=== PATIENT | female | born 1950 | race Caucasian/White ===

== ENCOUNTER → 2017-04-16 | Day surgery (SDC) | payer MEDICARE ==
[~2017-04-16] MED LIST: HYDR50TA94 PO; LACTATED RINGER'S 1000 ML INJ 1,000 ML ONE; PROPOFOL 500 MG/50 ML BTL IV ONE; TYLE3 PO; ZOVI800T13 PO
--- NOTE | 2017-04-16 10:43 | GIPROC ---
[facility] [address] [facility], [address] COLONOSCOPY PROCEDURE REPORT EXAM DATE: 04/16/2017 PATIENT NAME: Mary Pollard MR #: [id number] BIRTHDATE: 1950 ENDOSCOPIST: Zack Milian MD ORDER #: [id number] INSURANCE SALES AGENT: Noel Osorio RN STATUS: outpatient INDICATIONS: The patient is a 66 yr old female here for a colonoscopy due to unexplained diarrhea PROCEDURE PERFORMED: Colonoscopy with biopsy MEDICATIONS: None and Per Anesthesia. PREP QUALITY: poor ESTIMATED BLOOD LOSS: None CONSENT: The patient understands the risks and benefits of the procedure and understands that these risks include, but are not limited to: sedation, allergic reaction, infection, perforation and/or bleeding. Alternative means of evaluation and treatment include, among others: physical exam, x-rays, and/or surgical intervention. The patient elects to proceed with this endoscopic procedure. medical equipment was checked for proper function. Hand hygiene and appropriate measures for infection prevention was taken. After the risks, benefits and alternatives of the procedure were thoroughly explained, Informed consent was verified, confirmed and timeout was successfully executed by the treatment team. A digital exam revealed no abnormalities of the rectum The EC-3490Li ([id number]) endoscope was introduced through the anus and advanced to the cecum, which was identified by both the appendix and ileocecal valve. The instrument was then slowly withdrawn as the colon was fully examined. COLON FINDINGS: The colonic mucosa appeared normal. Multiple biopsies were performed. Incomplete colonoscopy poor prep. Retroflexed views revealed no abnormalities The scope was then completely withdrawn from the patient and the procedure terminated. PROCEDURE WITHDRAWAL TIME:5.1minutes ADVERSE EVENTS: There were no complications. IMPRESSIONS: 1. The colonic mucosa appeared normal; multiple biopsies were performed 2. Incomplete colonoscopy poor prep 3. Retroflexed views revealed no abnormalities 4. Revealed no abnormalities of the rectum RECOMMENDATIONS: 1. Await biopsy results. Biopsy results will not be ready for 7-10 days. If you don't hear from us in two weeks, call our office for results. 2. Follow-up: GI Clinic 3 week(s) RECALL: Return 1 year Colonoscopy Zack Milian MD eSigned: Zack Milian MD 04/16/2017 10:42 AM cc: Chicho Vital M.D and [facility] Mary
--- NOTE | 2017-04-16 10:45 | GIPROC ---
[facility] [address] [facility], [address] EGD PROCEDURE REPORT EXAM DATE: 04/16/2017 PATIENT NAME: Mary Pollard MR #: [id number] BIRTHDATE: 1950 ATTENDING: Zack Milian MD ORDER #: [id number] SOAPING MACHINE BACK TENDER: Noel Osorio RN STATUS: outpatient INDICATIONS: The patient is a 66 yr old female here for an EGD due to unexplained diarrhea PROCEDURE PERFORMED: EGD w/ biopsy MEDICATIONS: None, Per Anesthesia, None, and Per Anesthesia. TOPICAL ANESTHETIC: CONSENT: The patient understands the risks and benefits of the procedure and understands that these risks include, but are not limited to: sedation, allergic reaction, infection, perforation and/or bleeding. Alternative means of evaluation and treatment include, among others: physical exam, x-rays, and/or surgical intervention. The patient elects to proceed with this endoscopic procedure. medical equipment was checked for proper function. Hand hygiene and appropriate measures for infection prevention was taken. After the risks, benefits and alternatives of the procedure were thoroughly explained, Informed consent was verified, confirmed and timeout was successfully executed by the treatment team. The patient was anesthetized with topical anesthesia and the EC-3490Li ([id number]) endoscope was introduced through the mouth and advanced to the second portion of the duodenum. Retroflexed views revealed no abnormalities The gastroscope was then slowly withdrawn and removed. ESOPHAGUS: Polypoid lesion distal esophagus, biopsy taken. STOMACH: There was mild gastritis in the gastric antrum. Multiple biopsies were performed. The endoscopy was otherwise normal. DUODENUM: The duodenal mucosa appeared normal. Cold forcep biopsies were taken in the second portion. ADVERSE EVENTS: There were no complications. IMPRESSIONS: 1. Polypoid lesion distal esophagus, biopsy taken 2. There was mild gastritis in the gastric antrum; multiple biopsies were performed 3. Normal endoscopy otherwise 4. Normal duodenal mucosa 5. Retroflexed views revealed no abnormalities RECOMMENDATIONS: 1. Await biopsy results. Biopsy results will not be ready for 7-10 days. If you don't hear from us in two weeks, call our office for biopsy results. 2. Follow-up: GI clinic 3 week(s) PATIENT CONDITION: stable DISPOSITION: Home REPEAT EXAM: Zack Milian MD eSigned: Zack Milian MD 04/16/2017 10:45 AM cc: Javed Rasmussen M.D. PATIENT NAME: Mary Pollard MR#: [id number]
== END | disposition home or self-care (01) ==
LOC: ESDC 09:19
PROVIDERS: ATTEND Internal Medicine Gastroenterology
DX: R19.7 Diarrhea, unspecified (principal); K22.8 Other specified diseases of esophagus; K29.70 Gastritis, unspecified, without bleeding
CPT/HCPCS: 00740; 00810; 43239; 45380; 88305; 88312; J3010; J7120

== ENCOUNTER 2018-01-25 01:41 | Inpatient (IN) ==
--- NOTE | 2018-01-25 04:19 | ED ---
HPI General Chief Complaint: Psychiatric Symptoms Stated Complaint: Psych Eval, OBPD Time Seen by Provider: 01/25/18 02:22 Source: patient Mode of arrival: ambulatory Limitations: no limitations History of Present Illness HPI Narrative: 67-year-old female presents the ED under Cook act for psychiatric evaluation. According to the Cook act the patient is very paranoid and the called EMS. On presentation the patient denies suicidal or homicidal ideation. She states that she is under increased stress due to the recent of her grandson. She denies any somatic complaints. She denies any previous psychiatric history. She denies suicidal or homicidal ideation. She denies any illicit drug use or alcohol use. Related Data Allergies Allergy/AdvReac Type Severity Reaction Status Date / Time No Known Allergies Uncoded 05/01/11 10:50 Review of Systems Except as stated in HPI: all other systems reviewed are negative PMFSH Medical History Medical History Asthma (Acute) Bipolar disorder (Acute) History of frequent urinary tract infections (Acute) Hypertension (Acute) Parkinsons (Acute) TIA (transient ischemic attack) (Acute) Social History Social History Smoking Status: Never smoker How Often Do You Have a Drink Containing Alcohol: 4 or more times a week Recent Travel in [facility] within the Last 8 Weeks: No Recent Out of Country Travel within the Last 8 Weeks: No Exam Narrative Exam Narrative: GENERAL: Well-nourished, well-developed disheveled white female in no acute distress. SKIN: Focused skin assessment warm/dry. HEAD: Atraumatic. Normocephalic. EYES: Pupils equal and round. No scleral icterus. No injection or drainage. ENT: No nasal bleeding or discharge. Mucous membranes pink and moist. NECK: Trachea midline. No JVD. CARDIOVASCULAR: Regular rate and rhythm. No murmur appreciated. RESPIRATORY: No accessory muscle use. Clear to auscultation. Breath sounds equal bilaterally. GASTROINTESTINAL: Abdomen soft, non-tender, nondistended. Hepatic and splenic margins not palpable. MUSCULOSKELETAL: No obvious deformities. No clubbing. No cyanosis. No edema. NEUROLOGICAL: Awake and alert. No obvious cranial nerve deficits. Motor grossly within normal limits. Normal speech. PSYCHIATRIC: Pressured speech. Euphoric mood despite situation. Course Initial Documented Vital Signs Temperature 98.8 F 01/25/18 01:48 Pulse Rate 61 01/25/18 01:48 Respiratory Rate 18 01/25/18 01:48 Blood Pressure 125/61 01/25/18 01:48 Pulse Oximetry 98 01/25/18 01:48 Last Documented Vital Signs Temperature 98.8 F 01/25/18 01:48 Pulse Rate 77 01/25/18 07:30 Respiratory Rate 19 01/25/18 07:30 Blood Pressure 185/74 H 01/25/18 07:30 Pulse Oximetry 96 01/25/18 08:02 Critical Care Time Critical Care Time: Yes Total Critical Care Time: 30 Attestation: Aggregate critical care time was 30 minutes. Time to perform other separately billable procedures was not included in the critical care time. My time did not include minutes spent treating any other patients simultaneously or on activities that did not directly contribute to the patient's treatment. The services I provided to this patient were to treat and/or prevent clinically significant deterioration that could result in: , decompensation I provided critical care services requiring my management, as noted below: Chart data review, documentation time, medication orders and management, vital sign assessments/reviewing monitor data, ordering and reviewing lab tests, ordering and interpreting/reviewing x-rays and diagnostic studies, care of the patient and discussion of the patient with the admitting physicians. Sign Out Sign Out Data: Patient Sign Out occurred on 01/25/18 at 07:22. Patient's care was discussed, and care was transferred from EDGAR Ramos to Teetee Coyne. Sign Out Comment: 67-year-old woman brought to the ED under Cook act and found to be hyponatremic with sodium of 122. Patient's transferred to the medical pods under the care of Dr. Coyne. See her note for disposition. Last updated by Eli Lemos PA at 01/25/18 06:58 Post-Handoff Eval: Patient is a 67-year-old female with history of hypertension, hyperlipidemia, "leaky valves,' parkinson's disease, TIA who presents to the ER under a Cook act by [employer] officer's as she was acting abnormally and was distraught over the recent of her grandson. Reports that her grandson passed of a drug overdose at 22 years old. Patient was found to be acting inappropriately by her , patient's workup shows that she has a sodium of 122. Patient will require admission to the ICU for treatment and workup of hyponatremia. Patient is alert and oriented x 3, denies si/hi. Patient is sad about the passing of her grandson - denies active si/hi. Patient will require treatment for hyponatemia. Patient cannot remember all her medications. case reviewed with cryptanalyst, request admission to medical service case reviewed with FP residents - accepts pt to service under Dr. Govea Medical Decision Making MDM Narrative Medical decision making narrative: 67-year-old female presents the ED under Cook act for evaluation of paranoia. On presentation patient denies SI or HI. She states that she is distraught over the of her grandson recently. She denies any medical complaints. Vitals reviewed. Physical exam is unremarkable. Patient does have a somewhat inappropriate affect, she is vivacious and has somewhat pressured speech. Lab work reveals sodium of 122. IV insertion and bolus ordered. Patient is moved to the medical pods under the care of Dr. Coyne. Differential Diagnosis Differential Diagnosis: Adjustment disorder versus anxiety versus bipolar versus depression versus dementia versus electrolyte disorder versus malingering versus mood disorder versus ODD versus psychosis versus PTSD versus schizophrenia versus schizoaffective disorder versus substance-induced mood disorder versus other Lab Data Result diagrams: 01/25/18 02:22 01/25/18 02:22 Lab Results 01/25/18 01/25/18 01/25/18 Range/Units 02:22 02:22 07:55 WBC 9.9 (4.0-11.0) th/mm3 RBC 4.04 (4.00-5.30) mil/mm3 Hgb 12.0 (11.6-15.3) gm/dL Hct 35.1 (35.0-46.0) % MCV 86.9 (80.0-100.0) fL MCH 29.8 (27.0-34.0) pg MCHC 34.3 (32.0-36.0) % RDW 13.4 (11.6-17.2) % Plt Count 463 H (150-450) th/mm3 MPV 7.9 (7.0-11.0) fL Neut % (Auto) 50.1 (16.0-70.0) % Lymph % (Auto) 36.5 (9.0-44.0) % Lanier % (Auto) 9.3 H (0.0-8.0) % Eos % (Auto) 3.0 (0.0-4.0) % Baso % (Auto) 1.1 (0.0-2.0) % Neut # (Auto) 5.0 (1.8-7.7) th/mm3 Lymph # (Auto) 3.6 (1.0-4.8) th/mm3 Lanier # (Auto) 0.9 (0.0-0.9) th/mm3 Eos # (Auto) 0.3 (0.0-0.4) th/mm3 Baso # (Auto) 0.1 (0.0-0.2) th/mm3 WBC Differential . Differential Comment Auto diff final Sodium 122 L* (136-145) meq/L Potassium 4.4 (3.5-5.1) meq/L Chloride 86 L (98-107) meq/L Carbon Dioxide 26.1 (21.0-32.0) meq/L Anion Gap 10 (5-15) meq/L BUN 5 L (7-18) mg/dL Creatinine 0.66 (0.50-1.00) mg/dL Estimated GFR 89 (>89) mL/min Random Glucose 99 (74-106) mg/dL Calcium 9.3 (8.5-10.1) mg/dL Total Bilirubin 0.3 (0.2-1.0) mg/dL AST 23 (15-37) U/L ALT 27 (10-53) U/L Alkaline Phosphatase 88 (45-117) U/L Total Protein 7.5 (6.4-8.2) g/dL Albumin 4.1 (3.4-5.0) g/dL TSH 3.230 (0.358-3.740) uIU/mL Urine Color (Yellw/Straw) Urine Clarity (Clear) Urine pH (5.0-8.5) Ur Specific Elizabeth (1.002-1.035) Urine Protein (Neg-Trace) mg/dL Urine Glucose (UA) (Negative) mg/dL Urine Ketones (Negative) mg/dL Urine Occult Blood (Negative) Urine Nitrate (Negative) Urine Bilirubin (Negative) Urine Urobilinogen (Less than 2) mg/dL Ur Leukocyte Esterase (Negative) Urine RBC (0-3) /hpf Urine WBC (0-5) /hpf Ur Squamous Epith Cells (0-5) /hpf Micro UA Comment Urine Culture Comments Urine Opiates Screen Neg (Neg) Ur Barbiturates Screen Neg (Neg) Ur Amphetamines Screen Neg (Neg) U Benzodiazepines Scrn Neg (Neg) Urine Cocaine Screen Neg (Neg) U Cannabinoids Screen Neg (Neg) Serum Alcohol Less than 3 (0-5) mg/dL 01/25/18 Range/Units 07:55 WBC (4.0-11.0) th/mm3 RBC (4.00-5.30) mil/mm3 Hgb (11.6-15.3) gm/dL Hct (35.0-46.0) % MCV (80.0-100.0) fL MCH (27.0-34.0) pg MCHC (32.0-36.0) % RDW (11.6-17.2) % Plt Count (150-450) th/mm3 MPV (7.0-11.0) fL Neut % (Auto) (16.0-70.0) % Lymph % (Auto) (9.0-44.0) % Lanier % (Auto) (0.0-8.0) % Eos % (Auto) (0.0-4.0) % Baso % (Auto) (0.0-2.0) % Neut # (Auto) (1.8-7.7) th/mm3 Lymph # (Auto) (1.0-4.8) th/mm3 Lanier # (Auto) (0.0-0.9) th/mm3 Eos # (Auto) (0.0-0.4) th/mm3 Baso # (Auto) (0.0-0.2) th/mm3 WBC Differential Differential Comment Sodium (136-145) meq/L Potassium (3.5-5.1) meq/L Chloride (98-107) meq/L Carbon Dioxide (21.0-32.0) meq/L Anion Gap (5-15) meq/L BUN (7-18) mg/dL Creatinine (0.50-1.00) mg/dL Estimated GFR (>89) mL/min Random Glucose (74-106) mg/dL Calcium (8.5-10.1) mg/dL Total Bilirubin (0.2-1.0) mg/dL AST (15-37) U/L ALT (10-53) U/L Alkaline Phosphatase (45-117) U/L Total Protein (6.4-8.2) g/dL Albumin (3.4-5.0) g/dL TSH (0.358-3.740) uIU/mL Urine Color Straw (Yellw/Straw) Urine Clarity Clear (Clear) Urine pH 7.0 (5.0-8.5) Ur Specific Elizabeth 1.003 (1.002-1.035) Urine Protein Negative (Neg-Trace) mg/dL Urine Glucose (UA) Negative (Negative) mg/dL Urine Ketones Negative (Negative) mg/dL Urine Occult Blood Negative (Negative) Urine Nitrate Negative (Negative) Urine Bilirubin Negative (Negative) Urine Urobilinogen Less than 2 (Less than 2) mg/dL Ur Leukocyte Esterase Negative (Negative) Urine RBC Less than 1 (0-3) /hpf Urine WBC Less than 1 (0-5) /hpf Ur Squamous Epith Cells 1 (0-5) /hpf Micro UA Comment Culture not ind Urine Culture Comments Culture not ind Urine Opiates Screen (Neg) Ur Barbiturates Screen (Neg) Ur Amphetamines Screen (Neg) U Benzodiazepines Scrn (Neg) Urine Cocaine Screen (Neg) U Cannabinoids Screen (Neg) Serum Alcohol (0-5) mg/dL Discharge Plan Discharge Disposition Patient Disposition: 30 Still Patient Discharge Details Diagnosis: Acute hyponatremia Physicians Team ED Provider: Teetee Coyne ED Midlevel Provider: Eli Lemos Primary Care Provider: Chicho Vital Status ED Status: With Doctor
[2018-01-25 06:02] LABS: Baso # (Auto) 0.1 th/mm3 (0.0-0.2); Baso % (Auto) 1.1 % (0.0-2.0); Eos # (Auto) 0.3 th/mm3 (0.0-0.4); Hematocrit 35.1 % (35.0-46.0); Lymph # (Auto) 3.6 th/mm3 (1.0-4.8); Lymph % (Auto) 36.5 % (9.0-44.0); Mean Corpuscular HGB Conc 34.3 % (32.0-36.0); Mean Corpuscular Hemoglobin 29.8 pg (27.0-34.0); Mean Corpuscular Volume 86.9 fL (80.0-100.0); Mean Platelet Volume 7.9 fL (7.0-11.0); Mono # (Auto) 0.9 th/mm3 (0.0-0.9); Mono % (Auto) 9.3 % (0.0-8.0); Neut % (Auto) 50.1 % (16.0-70.0); Platelet Count 463 th/mm3 (150-450); Red Blood Count 4.04 mil/mm3 (4.00-5.30); Red Cell Distribution Width 13.4 % (11.6-17.2); White Blood Count 9.9 th/mm3 (4.0-11.0)
[2018-01-25 06:35] LABS: Alanine Aminotransferase 27 U/L (10-53); Albumin 4.1 g/dL (3.4-5.0); Alkaline Phosphatase 88 U/L (45-117); Anion Gap 10 meq/L (5-15); Aspartate Aminotransferase 23 U/L (15-37); Blood Urea Nitrogen 5 mg/dL (7-18); Calcium 9.3 mg/dL (8.5-10.1); Carbon Dioxide 26.1 meq/L (21.0-32.0); Chloride 86 meq/L (98-107); Glomerular Filtration Rate 89 mL/min (>89); Glucose,Random 99 mg/dL (74-106); Potassium 4.4 meq/L (3.5-5.1); Total Protein 7.5 g/dL (6.4-8.2)
[2018-01-25 06:40] LABS: Sodium 122 meq/L (136-145)
[2018-01-25] MEDS ORDERED: Sod Chloride 0.9% Inj 1,000 ML IV.SIG ONE (06:54)
[2018-01-25 08:32] LABS: Bilirubin,Urine Negative (Negative); Clarity,Urine Clear (Clear); Color,Urine Straw (Yellw/Straw); Glucose,Urine (UA) Negative (Negative); Leukocyte Esterase,Urine Negative (Negative); Nitrite,Urine Negative (Negative); Specific Gravity,Urine 1.003 (1.002-1.035); Squamous Epithelial Cell,Urine 1 /hpf (0-5)
[2018-01-25 08:54] LABS: Amphetamine Screen,Urine Neg (Neg); Barbiturate Screen,Urine Neg (Neg)
[2018-01-25 09:05] LABS: Cannabinoid Screen,Urine Neg (Neg); Cocaine Screen,Urine Neg (Neg)
[2018-01-25 09:07] LABS: Opiate Screen,Urine Neg (Neg)
--- NOTE | 2018-01-25 09:39 | P.HPFP ---
History of Present Illness Primary Care Physician: Chicho Vital MD <Marvin Govea - 01/25/18 14:43> MD Dr. Marlin Cash <Lupe Jacinto Omar - 01/25/18 13:37> History of Present Illness: 67-year-old female presenting to the emergency department under a Cook act due to altered mental status, paranoia, and suicidal ideation as reported by her . Her has been unable to be reached by the medicine team for further information, and patient has a somewhat convoluted story. Per the information from EMS, patient apparently reported suicidal thoughts The patient reports a very tangential story of her recent medical history. She states that she was recently hospitalized in [place] after her grandsons suicide in which she was worked up for possible MS. She then was discharged and return to [place] where she was again hospitalized for collapsing. She states that she was told that she has "leaky valves" and that this should be worked up further. She does not feel that she is confused or altered and in fact states that her is a one that is altered and that he has a history of MS as well. She is unable to provide further details of where she was treated or how, she also is unable to provide her home medications. Attempts have been made to contact but he has been unable to be reached. Upon admission, she was found to be significantly hyponatremic with a serum sodium of 122. Patient is unable to tell us what medications that she is on. She does endorse large amounts of water, stating that she drinks upwards of 20 bottled jasso a day. She does endorse frequent urination with this as well. Since being admitted to the medicine floor, she has been walking the hallways and outside of her room per nursing staff. She also has reportedly called the police from her room phone per nursing. <Marvin Govea - 01/25/18 14:43> Ms. Pollard was admitted under Cook act due to increased paranoia and suicidal ideation reported by (relayed by EMS). Patient was seen by psych in ED who signed her over for medical clearance due to hyponatremia. History difficult to obtain due to patient's AMS. Attempted to contact , but phone number was incorrect. PMH: Bipolar Panic attacks H/o Pancreatitis 3 months ago HTN HLD "Leaky valves" of heart, followed Dr. Hair Sx: Breast lump. Meds: Pt does not know Social: 2-3 glasses of wine,2-3x/wk Denies tobacco or recreational drug use <Lupe Jacinto 01/25/18 13:37> - Diagnosis (1) Hyponatremia (2) Altered mental status (3) Bipolar 1 disorder (4) Hypertension (5) Nutrition, metabolism, and development symptoms <JefersonMarvin mckeon 01/25/18 14:43> (1) Hyponatremia (2) Altered mental status (3) Bipolar 1 disorder (4) Hypertension (5) Nutrition, metabolism, and development symptoms <Lupe Jacinto 01/25/18 13:17> Inpatient Certification: I certify that the inpatient services were ordered in accordance with Medicare regulations governing the order. This includes certification that hospital inpatient services are reasonable and necessary and in the case of services not specified as inpatient-only under 42 CFR 419.22(n), that they are appropriately provided as inpatient services in accordance to with the 2-midnight benchmark under 43 CFR 412.3(e) <Marvin Govea 01/25/18 14:43> I certify that the inpatient services were ordered in accordance with Medicare regulations governing the order. This includes certification that hospital inpatient services are reasonable and necessary and in the case of services not specified as inpatient-only under 42 CFR 419.22(n), that they are appropriately provided as inpatient services in accordance to with the 2-midnight benchmark under 43 CFR 412.3(e) <Lupe Jacinto 01/25/18 09:38> Review of Systems Difficult to obtain due to patient's altered mental state, patient has to be redirected multiple times Constitutional: Denies chills, Denies fever(s), Denies headache(s), reports weakness Eyes: Denies blurry vision, Denies change in vision, Denies double vision Ears, Nose, Mouth, and Throat: Denies ear pain, reports nasal congestion, reports sore throat Cardiovascular: Denies lightheadedness, Denies chest pain, Denies palpitations, Denies fainting. Denies rapid heart rate Respiratory: Denies cough, Denies shortness of breath Gastrointestinal: Reports abdominal pain,[Denies black, tarry stools, Denies bright, red blood in stools, Denies nausea, Denies vomiting, Denies bloating, Denies changes in bowel habits Genitourinary: Denies blood in urine, Denies painful urination, reports urinary urgency, reports urinary frequency, Denies urinary incontinence Psychiatric: Denies hallucinations Denies anxiety, Denies depression Endocrine: Reports increased thirst, reports increased urination <Lupe Jacinto 01/25/18 13:37> PMFSH - History History Provided By: Patient <Lupe Jacinto 01/25/18 09:38> - Medical History Medical History: Medical History (Last Updated 01/25/18 @ 07:23 by Vipul Gonzales, RN) Asthma Bipolar disorder History of frequent urinary tract infections Hypertension Parkinsons TIA (transient ischemic attack) <Marvin Govea 01/25/18 14:43> Medical History (Last Updated 01/25/18 @ 07:23 by Vipul Gonzales RN) Asthma Bipolar disorder History of frequent urinary tract infections Hypertension Parkinsons TIA (transient ischemic attack) <Lupe Jacinto 01/25/18 09:38> - Tobacco History Smoking Status: Never smoker <Lupe Jacinto 01/25/18 09:38> - Alcohol History How Often Do You Have a Drink Containing Alcohol: 4 or more times a week < Lupe Jacinto 01/25/18 09:38> - Travel History Recent Travel in the [facility] Within the Last 8 Weeks: No <Lupe Jacinto 09:38> Recent Travel Out of the Country Within the Last 8 Weeks: No <Lupe Jacinto 01/25/18 09:38> - Immunization History Tetanus Immunization: Unsure <Lupe Jacinto 01/25/18 09:38> Hx Influenza Vaccine This Season: Unable to Assess <Lupe Jacinto 01/25/18 09:38> Medications and Allergies Allergies Allergy/AdvReac Type Severity Reaction Status Date / Time No Known Allergies Uncoded 05/01/11 10:50 <Marvin Govea 01/25/18 14:43> Active Medications: Active Medications Al Hydroxide/Mg Hydroxide (Milk Of Magnesia Liq) 30 ml PO Q12H PRN PRN Reason: Mild Constipation Flumazenil (Romazecon Inj) 0.2 mg IV.PUSH Q1M PRN PRN Reason: OVERSEDATION Haloperidol Lactate (Haldol Inj) 1 mg IV.PUSH Q15M PRN PRN Reason: for severe agitation Heparin Sodium (Porcine) (Heparin Inj) 5,000 units SQ Q12HR ALFREDA Lisinopril (Prinivil) 5 mg PO DAILY ALFREDA Lorazepam (Ativan) 2 mg PO Q2H PRN PRN Reason: for CIWA 11-14 Lorazepam (Ativan Inj) 2 mg IV.PUSH Q2H PRN PRN Reason: for CIWA 11-14 Lorazepam (Ativan Inj) 2 mg IV.PUSH Q1H PRN PRN Reason: for CIWA 15-20 Lorazepam (Ativan Inj) 2 mg IV.PUSH Q15M PRN PRN Reason: for CIWA > 20 Lorazepam (Ativan Inj) 1 mg IV.PUSH Q4H PRN PRN Reason: for CIWA 8-10 Lorazepam (Ativan) 1 mg PO Q4H PRN PRN Reason: for CIWA 8-10 Senna/Docusate Sodium (Cecily-Colace) 1 tab PO BID ALFREDA Sennosides (Senokot) 17.2 mg PO Q12H PRN PRN Reason: Moderate Constipation Temazepam (Restoril) 15 mg PO HS PRN PRN Reason: INSOMNIA <Marvin Govea - 01/25/18 14:43> Exam Vital signs: Vital Signs 01/25/18 01:48 01/25/18 07:30 01/25/18 07:40 Temperature 98.8 F Pulse Rate 61 77 Respiratory Rate 18 19 Blood Pressure 125/61 185/74 H Pulse Oximetry 98 96 01/25/18 08:02 01/25/18 12:00 Temperature 98.1 F Pulse Rate 79 Respiratory Rate 18 Blood Pressure 132/61 Pulse Oximetry 96 99 Intake & Output 01/24/18 01/25/18 01/25/18 18:59 06:59 18:59 Weight 69.853 kg <Marvin Govea 01/25/18 14:43> Vital Signs 01/25/18 01:48 01/25/18 07:30 01/25/18 07:40 Temperature 98.8 F Pulse Rate 61 77 Respiratory Rate 18 19 Blood Pressure 125/61 185/74 H Pulse Oximetry 98 96 01/25/18 08:02 Temperature Pulse Rate Respiratory Rate Blood Pressure Pulse Oximetry 96 Intake & Output 01/24/18 01/25/18 01/25/18 18:59 06:59 18:59 Weight 69.853 kg <Lupe Jacinto - 01/25/18 13:37> Narrative: General: Adult female, lying in bed in no obvious distress CV: Regular rate and rhythm without murmurs Respiratory: Clear to auscultation bilaterally GI: Soft, nondistended, nontender Psych: Somewhat pressured and tangential speech. Denies suicidal/homicidal ideations. Denies hallucinations. She is oriented to person, place, and date <Marvin Govea - 01/25/18 14:43> GENERAL: Adult female in no acute distress, very vocal SKIN: Warm and dry. EYES: No scleral icterus. NECK: Supple, trachea midline. No JVD or lymphadenopathy. CARDIOVASCULAR: Regular rate and rhythm without murmurs, gallops, or rubs. RESPIRATORY: Breath sounds equal bilaterally. No accessory muscle use. GASTROINTESTINAL: Abdomen soft, nondistended. Minimally tender in RLQ. BACK: Nontender without obvious deformity. No CVA tenderness. Psychiatric: Pressured speech, difficult to redirect. Denies a/v hallucinations or s/h ideation <Lupe Jacinto 01/25/18 13:37> Results - Labs Result diagrams: 01/25/18 02:22 01/25/18 02:22 <Marvin Govea 01/25/18 14:43> Abnormal lab results 01/25/18 01/25/18 01/25/18 Range/Units 02:22 02:22 07:55 Plt Count 463 H (150-450) th/mm3 [place] % (Auto) 9.3 H (0.0-8.0) % Sodium 122 L* (136-145) meq/L Chloride 86 L (98-107) meq/L BUN 5 L (7-18) mg/dL Urine Osmolality 122 L (300-1300) mosm/kg Short CBC 01/25/18 Range/Units 02:22 WBC 9.9 (4.0-11.0) th/mm3 Hgb 12.0 (11.6-15.3) gm/dL Hct 35.1 (35.0-46.0) % Plt Count 463 H (150-450) th/mm3 [facility] 01/25/18 02:22 Sodium 122 L* Potassium 4.4 Chloride 86 L Carbon Dioxide 26.1 BUN 5 L Creatinine 0.66 Calcium 9.3 Liver Function 01/25/18 Range/Units 02:22 Total Bilirubin 0.3 (0.2-1.0) mg/dL AST 23 (15-37) U/L ALT 27 (10-53) U/L Alkaline Phosphatase 88 (45-117) U/L Albumin 4.1 (3.4-5.0) g/dL Urine 01/25/18 Range/Units 07:55 Urine Color Straw (Yellw/Straw) Urine Clarity Clear (Clear) Urine pH 7.0 (5.0-8.5) Ur Specific [place] 1.003 (1.002-1.035) Urine Protein Negative (Neg-Trace) mg/dL Urine Glucose (UA) Negative (Negative) mg/dL <Marvin Govea - 01/25/18 14:43> Abnormal lab results 01/25/18 01/25/18 Range/Units 02:22 02:22 Plt Count 463 H (150-450) th/mm3 [place] % (Auto) 9.3 H (0.0-8.0) % Sodium 122 L* (136-145) meq/L Chloride 86 L (98-107) meq/L BUN 5 L (7-18) mg/dL Short CBC 01/25/18 Range/Units 02:22 WBC 9.9 (4.0-11.0) th/mm3 Hgb 12.0 (11.6-15.3) gm/dL Hct 35.1 (35.0-46.0) % Plt Count 463 H (150-450) th/mm3 BMP 01/25/18 02:22 Sodium 122 L* Potassium 4.4 Chloride 86 L Carbon Dioxide 26.1 BUN 5 L Creatinine 0.66 Calcium 9.3 Liver Function 01/25/18 Range/Units 02:22 Total Bilirubin 0.3 (0.2-1.0) mg/dL AST 23 (15-37) U/L ALT 27 (10-53) U/L Alkaline Phosphatase 88 (45-117) U/L Albumin 4.1 (3.4-5.0) g/dL Urine 01/25/18 Range/Units 07:55 Urine Color Straw (Yellw/Straw) Urine Clarity Clear (Clear) Urine pH 7.0 (5.0-8.5) Ur Specific [place] 1.003 (1.002-1.035) Urine Protein Negative (Neg-Trace) mg/dL Urine Glucose (UA) Negative (Negative) mg/dL <Lupe Jacinto 01/25/18 09:38> - Imaging Impressions Head CT 01/25/18 10:19 CONCLUSION: 1. Negative CT Head non contrast. <Marvin Govea 01/25/18 14:43> Caprini VTE Risk Assessment Caprini VTE Risk Assessment: No/Low Risk (score <= 1) <Lupe Jacinto 13:37> Caprini Risk Assessment Model: Point Value = 1 Point Value = 2 Point Value = 3 Point Value = 5 Age 41-60 Minor surgery BMI > 25 kg/m2 Swollen legs Varicose veins or History of unexplained or recurrent spontaneous Oral contraceptives or hormone replacement Sepsis (< 1 month) Serious lung disease, including pneumonia (< 1 month) Abnormal pulmonary function Acute myocardial infarction Congestive heart failure (< 1 month) History of inflammatory bowel disease Medical patient at bed rest Age 61-74 Arthroscopic surgery Major open surgery (> 45 min) Laparoscopic surgery (> 45 min) Malignancy Confined to bed (> 72 hours) Immobilizing plaster cast Central venous access Age >= 75 History of VTE Family history of VTE Factor V Leiden Prothrombin [id number] Lupus anticoagulant Anticardiolipin antibodies Elevated serum homocysteine Heparin-induced thrombocytopenia Other congenital or acquired thrombophilia Stroke (< 1 month) Elective arthroplasty Hip, pelvis, or leg fracture Acute spinal cord injury (< 1 month) <Marvin Govea 01/25/18 14:43> Point Value = 1 Point Value = 2 Point Value = 3 Point Value = 5 Age 41-60 Minor surgery BMI > 25 kg/m2 Swollen legs Varicose veins or History of unexplained or recurrent spontaneous Oral contraceptives or hormone replacement Sepsis (< 1 month) Serious lung disease, including pneumonia (< 1 month) Abnormal pulmonary function Acute myocardial infarction Congestive heart failure (< 1 month) History of inflammatory bowel disease Medical patient at bed rest Age 61-74 Arthroscopic surgery Major open surgery (> 45 min) Laparoscopic surgery (> 45 min) Malignancy Confined to bed (> 72 hours) Immobilizing plaster cast Central venous access Age >= 75 History of VTE Family history of VTE Factor V Leiden Prothrombin [id number] Lupus anticoagulant Anticardiolipin antibodies Elevated serum homocysteine Heparin-induced thrombocytopenia Other congenital or acquired thrombophilia Stroke (< 1 month) Elective arthroplasty Hip, pelvis, or leg fracture Acute spinal cord injury (< 1 month) <Lupe Jacinto - 01/25/18 09:38> Prophylaxis Regimen: Total Risk Factor Score Risk Level Prophylaxis Regimen 0-1 Low Early ambulation 2 Moderate Order ONE of the following: *Sequential Compression Device (SCD) *Heparin 5000 units SQ BID 3-4 Higher Order ONE of the following medications: *Heparin 5000 units SQ TID *Enoxaparin/Lovenox 40 mg SQ daily (WT < 150 kg, CrCl > 30 mL/min) *Enoxaparin/Lovenox 30 mg SQ daily (WT < 150 kg, CrCl > 10-29 mL/min) *Enoxaparin/Lovenox 30 mg SQ BID (WT < 150 kg, CrCl > 30 mL/min) AND/OR *Sequential Compression Device (SCD) 5 or more Highest Order ONE of the following medications: *Heparin 5000 units SQ TID (Preferred with Epidurals) *Enoxaparin/Lovenox 40 mg SQ daily (WT < 150 kg, CrCl > 30 mL/min) *Enoxaparin/Lovenox 30 mg SQ daily (WT < 150 kg, CrCl > 10-29 mL/min) *Enoxaparin/Lovenox 30 mg SQ BID (WT < 150 kg, CrCl > 30 mL/min) AND *Sequential Compression Device (SCD) <Marvin Govea - 01/25/18 14:43> Total Risk Factor Score Risk Level Prophylaxis Regimen 0-1 Low Early ambulation 2 Moderate Order ONE of the following: *Sequential Compression Device (SCD) *Heparin 5000 units SQ BID 3-4 Higher Order ONE of the following medications: *Heparin 5000 units SQ TID *Enoxaparin/Lovenox 40 mg SQ daily (WT < 150 kg, CrCl > 30 mL/min) *Enoxaparin/Lovenox 30 mg SQ daily (WT < 150 kg, CrCl > 10-29 mL/min) *Enoxaparin/Lovenox 30 mg SQ BID (WT < 150 kg, CrCl > 30 mL/min) AND/OR *Sequential Compression Device (SCD) 5 or more Highest Order ONE of the following medications: *Heparin 5000 units SQ TID (Preferred with Epidurals) *Enoxaparin/Lovenox 40 mg SQ daily (WT < 150 kg, CrCl > 30 mL/min) *Enoxaparin/Lovenox 30 mg SQ daily (WT < 150 kg, CrCl > 10-29 mL/min) *Enoxaparin/Lovenox 30 mg SQ BID (WT < 150 kg, CrCl > 30 mL/min) AND *Sequential Compression Device (SCD) <Lupe Jacinto - 01/25/18 09:38> Assessment and Plan - Assessment (1) Hyponatremia Code(s): E87.1 - Hypo-osmolality and hyponatremia Status: Acute Plan: Patient states that she has been drinking upwards of 20 bottles of water daily Admission sodium of 122 Continue normal saline at 100 mL/hour -Status post 1 L bolus of normal saline in the emergency department Urine osmole and urine sodium pending Fluid restriction to 800 mL p.o. daily Unknown medication history, lithium is a concern so we will obtain lithium level (2) Altered mental status Code(s): R41.82 - Altered mental status, unspecified Status: Acute Plan: Patient has a questionable history of bipolar disorder and unknown psychiatric baseline Differential includes acute on chronic hyponatremia versus psychiatric disorder Head CT performed showing no abnormalities Urine tox screen negative UA negative for infection Psychiatry consulted and appreciate recommendations (3) Bipolar 1 disorder Code(s): F31.9 - Bipolar disorder, unspecified Status: Acute Plan: Patient does have a history of bipolar disorder, unknown medications or treatment previously -We will continue to attempt to contact to further differentiate her treatment (4) Hypertension Code(s): I10 - Essential (primary) hypertension Status: Acute Plan: Given 0.1 mg of clonidine in the emergency department Start lisinopril 5 mg daily (5) Nutrition, metabolism, and development symptoms Code(s): R63.8 - Other symptoms and signs concerning food and fluid intake Status: Acute <Marvin Govea - 01/25/18 14:43> (1) Hyponatremia Code(s): E87.1 - Hypo-osmolality and hyponatremia Status: Acute Plan: -Normal saline at 100 mL's per hour -Urine osmole and urine sodium ordered to add to urine and lab -Follow sodium closely every 4 hours after initiation of fluids -Fluid restriction 800 mL's p.o. daily -[place] level ordered -Monitor for signs of worsening mental status (2) Altered mental status Code(s): R41.82 - Altered mental status, unspecified Status: Acute Plan: -She has poor historian, unable to reach for further information -Electrolyte abnormality vs psychiatric -Stat CT head without contrast no acute disease -UA negative, UDS negative -Psychiatry consulted, recommendations appreciated. (3) Bipolar 1 disorder Code(s): F31.9 - Bipolar disorder, unspecified Status: Acute Plan: -Unable to obtain history from patient -We will attempt to find out home medication. (4) Hypertension Code(s): I10 - Essential (primary) hypertension Status: Acute Plan: -Patient given 0.1 mg clonidine for BP 185/74 -Lisinopril 5 mg daily -Attempt to find out home medication (5) Nutrition, metabolism, and development symptoms Code(s): R63.8 - Other symptoms and signs concerning food and fluid intake Status: Acute Plan: Fluids: NS 100mL/hr, limit PO intake 800mL/day Electrolytes: NS 100mL/hr for hyponatremia DVT Prophylaxis: Heparin 5000U SQ q12hr <Lupe Jacinto - 01/25/18 13:17> - Assessment and Plan Discussed Condition With: Dr Braun <Lupe Jacinto - 01/25/18 12:30>
[2018-01-25] MEDS ORDERED: Temazepam 15 MG Capsule PO PRN (09:55)
[2018-01-25] MEDS ORDERED: Haloperidol Inj 5 MG/ML Ampul IV.PUSH PRN (10:55)
[2018-01-25] MEDS ORDERED: LORazepam 1 MG Tablet PO PRN (10:55)
--- NOTE | 2018-01-25 11:56 | CT ---
EXAM DATE: 01/25/2018 11:53 AM EDT AGE/SEX: 67 years / Female INDICATIONS: Altered Mental Status CLINICAL DATA: This is the patient's initial encounter. Patient reports that signs and symptoms have been present for 1 day and indicates a pain score of 0/10. MEDICAL/SURGICAL HISTORY: Asthma. Hypertension. Parkinson's disease. Stroke None. RADIATION DOSE: 37.06 CTDI (mGy) COMPARISON: [facility] [place], CT BRAIN W/O CONTRAST, 08/07/2010. . TECHNIQUE: CT of the head without contrast. Using automated exposure control and adjustment of the mA and/or kV according to patient size, radiation dose was kept as low as reasonably achievable to ob tain optimal diagnostic quality images. DICOM format image data is available electronically for revi ew and comparison. FINDINGS: Cerebrum: The ventricles are normal for age. No evidence of midline shift, mass lesion, hemorrhage or acute infarction. No extraaxial fluid collections are seen. Posterior Fossa: The cerebellum and brainstem are intact. The 4th ventricle is midline. The cerebe llopontine angle is unremarkable. Extracranial: The visualized portion of the orbits is intact. Skull: The calvaria is intact. No evidence of skull fracture. Mucous retention cysts identified wit hin the left maxillary sinus. CONCLUSION: 1. Negative CT Head non contrast. . Electronically signed by: Radha Ferguson MD 01/25/2018 11:55 AM EDT
[2018-01-25 14:53] LABS: Anion Gap 7 meq/L (5-15); Blood Urea Nitrogen 5 mg/dL (7-18); Calcium 9.1 mg/dL (8.5-10.1); Carbon Dioxide 29.2 meq/L (21.0-32.0); Chloride 92 meq/L (98-107); Glomerular Filtration Rate Greater Than 89 mL/min (>89); Glucose,Random 108 mg/dL (74-106); Potassium 3.9 meq/L (3.5-5.1); Sodium 128 meq/L (136-145)
[2018-01-25] MEDS: Senna/Docusate Sodium 8.6/50 MG Tablet PO SCH (21:29)
[2018-01-25] MEDS: Heparin - SQ 10,000 UNITS/ML Vial SQ SCH (21:29)
[2018-01-25 22:50] LABS: Calcium 8.5 mg/dL (8.5-10.1); Potassium 4.2 meq/L (3.5-5.1)
[2018-01-26 05:26] LABS: Baso % (Auto) 0.7 % (0.0-2.0); Eos # (Auto) 0.1 th/mm3 (0.0-0.4); Eos % (Auto) 2.8 % (0.0-4.0); Hematocrit 29.5 % (35.0-46.0); Hemoglobin 10.4 gm/dL (11.6-15.3); Lymph # (Auto) 2.1 th/mm3 (1.0-4.8); Lymph % (Auto) 44.4 % (9.0-44.0); Mean Corpuscular HGB Conc 35.3 % (32.0-36.0); Mean Corpuscular Hemoglobin 30.9 pg (27.0-34.0); Mean Corpuscular Volume 87.6 fL (80.0-100.0); Mean Platelet Volume 7.3 fL (7.0-11.0); Mono # (Auto) 0.5 th/mm3 (0.0-0.9); Mono % (Auto) 11.1 % (0.0-8.0); Platelet Count 310 th/mm3 (150-450); Red Blood Count 3.37 mil/mm3 (4.00-5.30); White Blood Count 4.8 th/mm3 (4.0-11.0)
[2018-01-26 05:41] LABS: Calcium 8.6 mg/dL (8.5-10.1); Carbon Dioxide 25.9 meq/L (21.0-32.0); Potassium 3.9 meq/L (3.5-5.1)
[2018-01-26] MEDS ORDERED: Lisinopril 5 MG Tablet PO SCH (09:00)
[2018-01-26] MEDS: Senna/Docusate Sodium 8.6/50 MG Tablet PO SCH (09:43)
[2018-01-26] MEDS: Heparin - SQ 10,000 UNITS/ML Vial SQ SCH (09:43)
--- NOTE | 2018-01-26 10:59 | P.PNFP ---
Subjective Interval history: Patient seen and examined this morning. Sodium improved overnight. Pt denies any complaints this morning. She is wondering when she can go home. <OwenBenjamin Myles - 01/26/18 10:58> Results - Labs Result diagrams: 01/26/18 04:39 01/26/18 04:39 <JefersonMarvin - 01/26/18 12:16> Abnormal lab results 01/25/18 01/25/18 01/25/18 Range/Units 07:55 13:49 13:49 RBC (4.00-5.30) mil/mm3 Hgb (11.6-15.3) gm/dL Hct (35.0-46.0) % Lymph % (Auto) (9.0-44.0) % [place] % (Auto) (0.0-8.0) % Sodium 128 L (136-145) meq/L Chloride 92 L (98-107) meq/L BUN 5 L (7-18) mg/dL Estimated GFR (>89) mL/min Random Glucose 108 H (74-106) mg/dL Urine Osmolality 122 L (300-1300) mosm/kg Strang Less than 0.1 L (0.5-1.5) meq/L 01/25/18 01/26/18 01/26/18 Range/Units 22:20 04:39 04:39 RBC 3.37 L (4.00-5.30) mil/mm3 Hgb 10.4 L (11.6-15.3) gm/dL Hct 29.5 L (35.0-46.0) % Lymph % (Auto) 44.4 H (9.0-44.0) % [place] % (Auto) 11.1 H (0.0-8.0) % Sodium 126 L 126 L (136-145) meq/L Chloride 91 L 91 L (98-107) meq/L BUN (7-18) mg/dL Estimated GFR 88 L 78 L (>89) mL/min Random Glucose 147 H (74-106) mg/dL Urine Osmolality (300-1300) mosm/kg Strang (0.5-1.5) meq/L Short CBC 01/26/18 Range/Units 04:39 WBC 4.8 (4.0-11.0) th/mm3 Hgb 10.4 L (11.6-15.3) gm/dL Hct 29.5 L (35.0-46.0) % Plt Count 310 D (150-450) th/mm3 BMP 01/25/18 01/25/18 01/26/18 13:49 22:20 04:39 Sodium 128 L 126 L 126 L Potassium 3.9 4.2 3.9 Chloride 92 L 91 L 91 L Carbon Dioxide 29.2 26.0 25.9 BUN 5 L 9 9 Creatinine 0.58 0.67 0.74 Calcium 9.1 8.5 8.6 <Lillian Goveay - 01/26/18 12:16> Abnormal lab results 01/25/18 01/25/18 01/25/18 Range/Units 07:55 13:49 13:49 RBC (4.00-5.30) mil/mm3 Hgb (11.6-15.3) gm/dL Hct (35.0-46.0) % Lymph % (Auto) (9.0-44.0) % [place] % (Auto) (0.0-8.0) % Sodium 128 L (136-145) meq/L Chloride 92 L (98-107) meq/L BUN 5 L (7-18) mg/dL Estimated GFR (>89) mL/min Random Glucose 108 H (74-106) mg/dL Urine Osmolality 122 L (300-1300) mosm/kg Strang Less than 0.1 L (0.5-1.5) meq/L 01/25/18 01/26/18 01/26/18 Range/Units 22:20 04:39 04:39 RBC 3.37 L (4.00-5.30) mil/mm3 Hgb 10.4 L (11.6-15.3) gm/dL Hct 29.5 L (35.0-46.0) % Lymph % (Auto) 44.4 H (9.0-44.0) % [place] % (Auto) 11.1 H (0.0-8.0) % Sodium 126 L 126 L (136-145) meq/L Chloride 91 L 91 L (98-107) meq/L BUN (7-18) mg/dL Estimated GFR 88 L 78 L (>89) mL/min Random Glucose 147 H (74-106) mg/dL Urine Osmolality (300-1300) mosm/kg Strang (0.5-1.5) meq/L Short CBC 01/26/18 Range/Units 04:39 WBC 4.8 (4.0-11.0) th/mm3 Hgb 10.4 L (11.6-15.3) gm/dL Hct 29.5 L (35.0-46.0) % Plt Count 310 D (150-450) th/mm3 BMP 01/25/18 01/25/18 01/26/18 13:49 22:20 04:39 Sodium 128 L 126 L 126 L Potassium 3.9 4.2 3.9 Chloride 92 L 91 L 91 L Carbon Dioxide 29.2 26.0 25.9 BUN 5 L 9 9 Creatinine 0.58 0.67 0.74 Calcium 9.1 8.5 8.6 <Benjamin Weaver - 01/26/18 10:58> - Imaging Impressions Head CT 01/25/18 10:19 CONCLUSION: 1. Negative CT Head non contrast. . <Benjamin Weaver 01/26/18 10:58> Physical Exam Vital signs: Vital Signs 01/25/18 16:00 01/25/18 20:00 01/26/18 00:00 Temperature 97.3 F L 97.4 F L 98.1 F Pulse Rate 75 86 72 Respiratory Rate 16 15 16 Blood Pressure 142/63 H 121/58 L 135/61 Pulse Oximetry 98 96 96 01/26/18 04:00 01/26/18 08:00 01/26/18 12:00 Temperature 98.2 F 98.2 F 98.7 F Pulse Rate 89 81 85 Respiratory Rate 16 18 18 Blood Pressure 122/58 L 154/75 H 162/67 H Pulse Oximetry 94 L 99 95 Intake & Output 01/25/18 01/26/18 01/26/18 18:59 06:59 18:59 Weight 69.8 kg Other: # Voids 1 6 Date of Last Bowel Movement 01/26/18 <Marvin Govea - 01/26/18 12:16> Vital Signs 01/25/18 12:00 01/25/18 16:00 01/25/18 20:00 Temperature 98.1 F 97.3 F L 97.4 F L Pulse Rate 79 75 86 Respiratory Rate 18 16 15 Blood Pressure 132/61 142/63 H 121/58 L Pulse Oximetry 99 98 96 01/26/18 00:00 01/26/18 04:00 01/26/18 08:00 Temperature 98.1 F 98.2 F 98.2 F Pulse Rate 72 89 81 Respiratory Rate 16 16 18 Blood Pressure 135/61 122/58 L 154/75 H Pulse Oximetry 96 94 L 99 Intake & Output 01/25/18 01/26/18 01/26/18 18:59 06:59 18:59 Weight 69.8 kg Other: # Voids 1 6 <Benjamin Weaver - 01/26/18 10:58> Narrative: GENERAL: sitting up in bed, NAD SKIN: Warm and dry. CARDIOVASCULAR: Regular rate and rhythm. RESPIRATORY: No accessory muscle use. Clear to auscultation. Breath sounds equal bilaterally. GASTROINTESTINAL: Abdomen soft, non-tender, nondistended. Hepatic and splenic margins not palpable. MUSCULOSKELETAL: Extremities without clubbing, cyanosis, or edema. No obvious deformities. NEUROLOGICAL: Awake and alert. No obvious cranial nerve deficits. Motor grossly within normal limits. Normal speech. PSYCHIATRIC: Tangential speech. normal mood. no SI/HI. Alert and oriented x3 <Benjamin Weaver - 01/26/18 10:58> Assessment and Plan - Assessment (1) Hyponatremia Code(s): E87.1 - Hypo-osmolality and hyponatremia Status: Acute (2) Altered mental status Code(s): R41.82 - Altered mental status, unspecified Status: Acute (3) Bipolar 1 disorder Code(s): F31.9 - Bipolar disorder, unspecified Status: Acute (4) Hypertension Code(s): I10 - Essential (primary) hypertension Status: Acute (5) Nutrition, metabolism, and development symptoms Code(s): R63.8 - Other symptoms and signs concerning food and fluid intake Status: Acute <Marvin Govea - 01/26/18 12:16> (1) Hyponatremia Code(s): E87.1 - Hypo-osmolality and hyponatremia Status: Acute Plan: Patient states that she has been drinking upwards of 20 bottles of water daily Admission sodium of 122 Urine osm 122 urine Na 28 Strang level low Improving Na up to 126 Fluid restriction to 800 mL p.o. daily Unknown medication history, lithium is a concern so we will obtain lithium level (2) Altered mental status Code(s): R41.82 - Altered mental status, unspecified Status: Acute Plan: Patient has a questionable history of bipolar disorder and unknown psychiatric baseline Differential includes acute on chronic hyponatremia versus psychiatric disorder Head CT performed showing no abnormalities Urine tox screen negative UA negative for infection Psychiatry consulted and appreciate recommendations (3) Bipolar 1 disorder Code(s): F31.9 - Bipolar disorder, unspecified Status: Acute Plan: Patient does have a history of bipolar disorder, unknown medications or treatment previously -We will continue to attempt to contact to further differentiate her treatment (4) Hypertension Code(s): I10 - Essential (primary) hypertension Status: Acute Plan: Given 0.1 mg of clonidine in the emergency department Start lisinopril 5 mg daily (5) Nutrition, metabolism, and development symptoms Code(s): R63.8 - Other symptoms and signs concerning food and fluid intake Status: Acute Plan: Fluids: limit PO intake 800mL/day Electrolytes: Hyponatremia as above DVT Prophylaxis: Heparin 5000U SQ q12hr <Benjamin Weaver - 01/26/18 10:49> - Attending Attestation Patient examined independently and case discussed with resident physicians I have read the above note and agree with the assessment/plan as discussed with me I was involved in all medical decision making for this patient Marvin Govea MD <Marvin Govea - 01/26/18 12:16>
--- NOTE | 2018-01-26 12:18 | P.CONPSY ---
Provisional Diagnosis Admission Date: January 25, 2018 09:30 [place] I.: 1. Bipolar disorder, presently manic, severe with psychotic features [place] II.: Deferred History of Present Illness Service: Psychiatry Consult date: 01/26/18 Requesting Physician: Lupe Jacinto Reason for Consult: Cook Act. Possible history of BPAD. Primary Care Provider: Chicho Vital MD History of Present Illness: Ms. Pollard is a 67-year-old female with a history of bipolar disorder who presents under a Cook act by [facility] alleging that the patient is paranoid and unable to care for herself. The patient has been admitted to the medical floor for management of hyponatremia. Reviewing the electronic medical record, I see no previous psychiatric contact within our system. Patient seen and examined. Chart reviewed. Case discussed with nursing staff who reports that the patient has been quite grandiose, offering to buy items for the staff including vehicles. A sitter is at the bedside. On my examination today, the patient presents with elevated mood and expansive affect. She remains upbeat even when discussing grave matters such as her grandson's recent suicide. Speech is rapid and rambling. Mood is described as "100%!" She reports that she is sleeping well. She is somewhat distractible with some loosening of associations. She denies audiovisual hallucinations. Grandiose delusions are noted. She tells me that her is a candidate for president of [employer]. She offers me a job in the [employer] once he gets elected. She denies any suicidal or homicidal ideation but seems unreliable to contract for safety. Remainder of the psychiatric ROS is negative. No acute physical complaints. Mental status testing: Registration is 3 out of 3 and recall is 2 out of 3 at 5 minutes. She is oriented to person, place and date. She gives WORLD backwards as DLORW. She is able to name 2 items and repeat a phrase. Past psychiatric history: The patient reports a history of "a little bipolar." She reports that she saw her female psychiatrist last week although she cannot recall the name. [Collateral from indicates that the patient has in fact been seeing a male psychiatrist, Dr. Bey.] Patient reports that she was Cook acted 15 years ago but otherwise denies any history of inpatient psychiatric treatment. She denies a history of suicide attempts. Family history: The patient denies any family history of mental illness or suicide. Chemical dependency history: The patient reports that she is a social drinker. She says that she has reduced even this level of alcohol consumption after a bout of pancreatitis a few months ago. Social history: The patient is originally from [place] by way of [place]. Her father and grandfather were reportedly surgeons. She lives with her Tres who suffers from MS and Parkinson's. She has 4 children. She has a college degree in geology. 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 Denies any legal history. Denies any access to guns or firearms. She is a Confucianism. With patient's permission, spoke with her Tres Burch at [phone]. Mr. Burch notes that 3 weeks ago, patient left for a doctor's appointment and ended up driving all the way to [place] where she ran out of gas. She was reportedly psychiatrically hospitalized in [place] [facility] and reportedly disclosed some suicidal ideation while treated there. suspects that precipitant for this manic episode was grandson's suicide about 3 weeks ago. He notes that the patient has a history of bipolar disorder and recently started seeing Dr. Bey. Before that had been seeing Olvin Mcgarry at [facility]. notes Dr. Bey started patient on Vraylar. She took 3 doses, perhaps some benefit but not long-lasting. He notes that she had been doing well with whatever medication Olvin was prescribing for her. is supportive of psychiatric hospitalization at this time. I called over to [facility] to get med list. Patient was most recently prescribed Seroquel 300 mg at bedtime. She has also been on Risperdal in the past. Review of Systems All other systems reviewed negative except as stated in HPI (Limitation: Alison) [facility] - History History Provided By: Patient - Medical History Medical History: Medical History (Last Updated 01/25/18 @ 07:23 by Vipul Gonzales RN) Asthma Bipolar disorder History of frequent urinary tract infections Hypertension Parkinsons TIA (transient ischemic attack) - Tobacco History Second Hand Smoke Exposure: No Tobacco Use In Past 30 Days: No Smoking Status: Never smoker Tobacco Type: Cigarettes - Alcohol History How Often Do You Have a Drink Containing Alcohol: 4 or more times a week - Substance Use History Substance History: No History of Abuse - Travel History Recent Travel in the [facility] Within the Last 8 Weeks: No Recent Travel Out of the Country Within the Last 8 Weeks: No - Immunization History Tetanus Immunization: Unsure Hx Influenza Vaccine This Season: Unable to Assess Medications and Allergies Active Medications: Active Medications Al Hydroxide/Mg Hydroxide (Milk Of Rosana Gloria) 30 ml PO Q12H PRN PRN Reason: Mild Constipation Flumazenil (Romazecon Inj) 0.2 mg IV.PUSH Q1M PRN PRN Reason: OVERSEDATION Haloperidol Lactate (Haldol Inj) 1 mg IV.PUSH Q15M PRN PRN Reason: for severe agitation Heparin Sodium (Porcine) (Heparin Inj) 5,000 units SQ Q12HR [facility] Last Admin: 01/26/18 09:43 Dose: 5,000 units Lisinopril (Prinivil) 5 mg PO DAILY [facility] Last Admin: 01/26/18 09:43 Dose: 5 mg Lorazepam (Ativan) 2 mg PO Q2H PRN PRN Reason: for CIWA 11-14 Lorazepam (Ativan Inj) 2 mg IV.PUSH Q2H PRN PRN Reason: for CIWA 11-14 Lorazepam (Ativan Inj) 2 mg IV.PUSH Q1H PRN PRN Reason: for CIWA 15-20 Lorazepam (Ativan Inj) 2 mg IV.PUSH Q15M PRN PRN Reason: for CIWA > 20 Lorazepam (Ativan Inj) 1 mg IV.PUSH Q4H PRN PRN Reason: for CIWA 8-10 Lorazepam (Ativan) 1 mg PO Q4H PRN PRN Reason: for CIWA 8-10 Senna/Docusate Sodium (Cecily-Colace) 1 tab PO BID [facility] Last Admin: 01/26/18 09:43 Dose: 1 tab Sennosides (Senokot) 17.2 mg PO Q12H PRN PRN Reason: Moderate Constipation Temazepam (Restoril) 15 mg PO HS PRN PRN Reason: INSOMNIA Allergies Allergy/AdvReac Type Severity Reaction Status Date / Time No Known Allergies Uncoded 05/01/11 10:50 Exam Vital signs: Vital Signs 01/25/18 16:00 01/25/18 20:00 01/26/18 00:00 Temperature 97.3 F L 97.4 F L 98.1 F Pulse Rate 75 86 72 Respiratory Rate 16 15 16 Blood Pressure 142/63 H 121/58 L 135/61 Pulse Oximetry 98 96 96 01/26/18 04:00 01/26/18 08:00 01/26/18 12:00 Temperature 98.2 F 98.2 F 98.7 F Pulse Rate 89 81 85 Respiratory Rate 16 18 18 Blood Pressure 122/58 L 154/75 H 162/67 H Pulse Oximetry 94 L 99 95 Intake & Output 01/25/18 01/26/18 01/26/18 18:59 06:59 18:59 Weight 69.8 kg Other: # Voids 1 6 Date of Last Bowel Movement 01/26/18 Narrative: Physical examination completed by the primary team. On my examination today, the patient appears to be in no acute physical distress. No motor abnormalities noted. Labs and vital signs reviewed: Laboratory Tests 01/25/18 01/25/18 01/25/18 02:22 07:55 13:49 WBC Hgb Plt Count Sodium Potassium Chloride Carbon Dioxide Anion Gap BUN Creatinine Estimated GFR Random Glucose Calcium AST 23 ALT 27 Alkaline Phosphatase 88 TSH 3.230 Urine Opiates Screen Neg Ur Barbiturates Screen Neg Ur Amphetamines Screen Neg U Benzodiazepines Scrn Neg Neal Less than 0.1 L Urine Cocaine Screen Neg U Cannabinoids Screen Neg Serum Alcohol Less than 3 01/26/18 01/26/18 04:39 14:30 WBC 4.8 Hgb 10.4 L Plt Count 310 D Sodium 124 L* Potassium 3.8 Chloride 89 L Carbon Dioxide 25.3 Anion Gap 10 BUN 6 L Creatinine 0.60 Estimated GFR Greater than 89 Random Glucose 115 H Calcium 9.1 AST ALT Alkaline Phosphatase TSH Urine Opiates Screen Ur Barbiturates Screen Ur Amphetamines Screen U Benzodiazepines Scrn Neal Urine Cocaine Screen U Cannabinoids Screen Serum Alcohol Urinalysis bland. Impressions Head CT 01/25/18 10:19 CONCLUSION: 1. Negative CT Head non contrast. . Mental Status Examination Appearance: Appropriate Consciousness: Alert Orientation: Person, Place, Date/Time Motor Activity: Other (No motor abnormalities noted) Speech: Rapid Language: Other (Rambling) Fund of Knowledge: Adequate Attention and Concentration: Easily distracted Memory: Impaired (Current psychiatric symptoms likely interfere) Mood: Other ("100%!") Affect: Other (Expansive) Thought Process & Associations: Loose associations Thought Content: Delusional Hallucination Type: None Delusion Type: Other (Grandiose) Suicidal Ideation: No Suicidal Plan: No Suicidal Intention: No Homicidal Ideation: No Homicidal Plan: No Homicidal Intention: No Insight: Poor Judgment: Poor Assessment and Plan - Assessment (1) Bipolar affective disorder, currently manic, severe, with psychotic features Code(s): F31.2 - Bipolar disorder, current episode manic severe with psychotic features Status: Acute - Plan Plan: 67-year-old female with psychiatric history as detailed above who is presently admitted to the medical unit under a Cook act. On my examination today, the patient presents as floridly manic and collateral information from her suggests that this alison had its onset about 3 weeks ago following the suicide of a grandson. Patient has reportedly been taking Vraylar most recently but this has not been providing lasting symptomatic improvement. Given the extent of her psychiatric symptomatology. She requires psychiatric hospitalization for safety, observation and stabilization. As her hyponatremia is improving, I recommend transferring her to the medical psychiatric unit for further management. I will defer psychotropic medication management to the inpatient psychiatric team. Case discussed with RN on the floor as well as psych automotive services manager. Thank you very much for this consultation. Please call or page with questions. Justification for Continued Inpatient Stay: Per primary team Discharge Planning: Transfer to medical psychiatric unit under Cook act.
[2018-01-26 16:39] LABS: Anion Gap 10 meq/L (5-15); Blood Urea Nitrogen 6 mg/dL (7-18); Calcium 9.1 mg/dL (8.5-10.1); Carbon Dioxide 25.3 meq/L (21.0-32.0); Chloride 89 meq/L (98-107); Glomerular Filtration Rate Greater Than 89 mL/min (>89); Glucose,Random 115 mg/dL (74-106); Potassium 3.8 meq/L (3.5-5.1)
[2018-01-26 16:40] LABS: Sodium 124 meq/L (136-145)
--- NOTE | 2018-01-28 08:38 | P.DS ---
Date of admission: 01/25/18 09:30 Primary care physician: Chicho Vital MD Brief History from admission: 67-year-old female presenting to the emergency department under a Cook act due to altered mental status, paranoia, and suicidal ideation as reported by her . Her has been unable to be reached by the medicine team for further information, and patient has a somewhat convoluted story. Per the information from EMS, patient apparently reported suicidal thoughts The patient reports a very tangential story of her recent medical history. She states that she was recently hospitalized in [place] after her grandsons suicide in which she was worked up for possible MS. She then was discharged and return to [place] where she was again hospitalized for collapsing. She states that she was told that she has "leaky valves" and that this should be worked up further. She does not feel that she is confused or altered and in fact states that her is a one that is altered and that he has a history of MS as well. She is unable to provide further details of where she was treated or how, she also is unable to provide her home medications. Attempts have been made to contact but he has been unable to be reached. Upon admission, she was found to be significantly hyponatremic with a serum sodium of 122. Patient is unable to tell us what medications that she is on. She does endorse large amounts of water, stating that she drinks upwards of 20 bottled jasso a day. She does endorse frequent urination with this as well. Since being admitted to the medicine floor, she has been walking the hallways and outside of her room per nursing staff. She also has reportedly called the police from her room phone per nursing. DS: Diagnosis - Discharge Diagnosis (1) Hyponatremia Status: Acute (2) Altered mental status Status: Acute (3) Bipolar 1 disorder Status: Acute (4) Hypertension Status: Acute (5) Nutrition, metabolism, and development symptoms Status: Acute DS: Summary Hospital Course: Ms. Pollard was admitted on 01/25/2018 for paranoia and ams reported by her . She was Cook acted at the time though denied S/H ideation. On her initial labwork she was found to have sodium level of 122. Psychiatry evaluated the patient and reported that she was no harm to herself at the time. The patient was started on NS and her sodium was monitored q4hr. Head CT was performed and was negative. She recovered to Na of 128 that evening. Her Na remained stable overnight and she was discharged to a psychiatric care facility on 01/26/2018. - Time Spent with Patient Total time spent providing and/or coordinating discharge services: Less than 30 minutes - Quality: VTE Deep Vein Thrombosis/Pulmonary Embolism Present on Admission: No Results Procedures completed during hospitalization: None - Impressions ITS Impressions Head CT 01/25/18 10:19 CONCLUSION: 1. Negative CT Head non contrast. . Discharge Plan - Discharge Disposition Patient Disposition: 65 Disc To Psych Care Facility - Discharge Condition Condition: Stable - Discharge Order Discharge Orders: Discharge Order (Routine); Ordered 01/26/18 Ordered By: Benjamin Weaver - Physicians Team Primary Care Provider: Chicho Vital Attending Provider: Marvin Govea Other Providers: Tres Desai MD ; [employer],Insurance
== END 2018-01-26 17:21 ==
LOC: NEPJ 01:41 → NEDA 09:30 → N06 10:30
PROVIDERS: ADMIT Family Medicine; ATTEND Family Medicine

== ENCOUNTER 2018-01-26 17:14 | Inpatient (IN) ==
[2018-01-26] MEDS: Lisinopril 5 MG Tablet PO SCH (10:15)
[2018-01-26] MEDS ORDERED: Aluminum/Magnesium/Simethacone Susp 30 ML UDC PO PRN (21:52)
[2018-01-26 22:17] LABS: Anion Gap 12 meq/L (5-15); Blood Urea Nitrogen 4 mg/dL (7-18); Calcium 9.2 mg/dL (8.5-10.1); Carbon Dioxide 24.5 meq/L (21.0-32.0); Chloride 91 meq/L (98-107); Glomerular Filtration Rate Greater Than 89 mL/min (>89); Glucose,Random 145 mg/dL (74-106); Potassium 3.4 meq/L (3.5-5.1); Sodium 127 meq/L (136-145)
[2018-01-26 22:19] LABS: Cholesterol 174 mg/dL (120-200); Triglycerides 331 mg/dL (42-150)
[2018-01-26 22:21] LABS: Chol/HDL Ratio 3.84 Ratio; HDL Cholesterol 45.3 mg/dL (40.0-60.0); LDL Cholesterol,Calculated 63 mg/dL (0-99)
--- NOTE | 2018-01-27 08:01 | P.HPPSY ---
Provisional Diagnosis Admission Date: January 26, 2018 17:34 [place] I.: 1. Bipolar disorder, currently manic, severe with psychotic features [place] II.: Deferred Competence Certification of Person's Competence To Provide Express and Informed Consent I have personally examined Mary Pollard, a person being served at [facility] on, January 27, 2018 0801. Express and informed consent means consent voluntarily given in writing, by a competent person, after sufficient explanation and disclosure of the subject matter involved to enable the person to make a knowing and willful decision without any element of force, fraud, deceit, duress, or other form of constraint or coercion. This person is 18 years of age or older, is not now known to be incompetent to consent to treatment with a guardian advocate, and does not have a health care surrogate or proxy currently making medical treatment decisions. I have found this person to be one of the following: [] Competent to provide express and informed consent, as defined above, for voluntary admission to this facility and is competent to provide express and informed consent for treatment. He/she has the consistent capacity to make well reasoned, willful, and knowing decisions concerning his or her medical or mental health treatment. The person fully and consistently understands the purpose of the admission for examination/placement and is fully capable of personally exercising all rights assured [place] [X] Incompetent to provide express and informed consent to voluntary admission, and this is incompetent to provide express and informed consent to treatment. The person must be transferred to involuntary status and a petition for a guardian advocate filed with the Circuit Court. [] Refusing to provide express and informed consent to voluntary admission but is competent to provide express and informed consent for treatment. The person must be discharged or transferred to involuntary status. Form shall be completed within 24 hours of a person's arrival at the receiving facility and filed in the clinical record of each person: 1. Admitted on a voluntary basis 2. Permitted to provide express and informed consent to his/her own treatment 3. Allowed to transfer from involuntary to voluntary status 4. Prior to permitting a person to consent to his or her own treatment after having been previously found incompetent to consent to treatment. History of Present Illness Capacity: Lacks capacity Chief Complaint: Alison History of Present Illness: From my consultation note of 01/26: Ms. Pollard is a 67-year-old female with a history of bipolar disorder who presents under a Cook act by [place] [employer] alleging that the patient is paranoid and unable to care for herself. The patient has been admitted to the medical floor for management of hyponatremia. Reviewing the electronic medical record, I see no previous psychiatric contact within our system. Patient seen and examined. Chart reviewed. Case discussed with nursing staff who reports that the patient has been quite grandiose, offering to buy items for the staff including vehicles. A sitter is at the bedside. On my examination today, the patient presents with elevated mood and expansive affect. She remains upbeat even when discussing grave matters such as her grandson's recent suicide. Speech is rapid and rambling. Mood is described as "100%!" She reports that she is sleeping well. She is somewhat distractible with some loosening of associations. She denies audiovisual hallucinations. Grandiose delusions are noted. She tells me that her is a candidate for president of [employer]. She offers me a job in the [employer] once he gets elected. She denies any suicidal or homicidal ideation but seems unreliable to contract for safety. Remainder of the psychiatric ROS is negative. No acute physical complaints. Mental status testing: Registration is 3 out of 3 and recall is 2 out of 3 at 5 minutes. She is oriented to person, place and date. She gives WORLD backwards as DLORW. She is able to name 2 items and repeat a phrase. Past psychiatric history: The patient reports a history of "a little bipolar." She reports that she saw her female psychiatrist last week although she cannot recall the name. [Collateral from indicates that the patient has in fact been seeing a male psychiatrist, Dr. Bey.] Patient reports that she was Cook acted 15 years ago but otherwise denies any history of inpatient psychiatric treatment. She denies a history of suicide attempts. Family history: The patient denies any family history of mental illness or suicide. Chemical dependency history: The patient reports that she is a social drinker. She says that she has reduced even this level of alcohol consumption after a bout of pancreatitis a few months ago. Social history: The patient is originally from [place] by way of [place]. Her father and grandfather were reportedly surgeons. She lives with her Tres who suffers from MS and Parkinson's. She has 4 children. She has a college degree in geology. 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 Denies any legal history. Denies any access to guns or firearms. She is a [employer]. With patient's permission, spoke with her Tres Burch at [phone]. Mr. Burch notes that 3 weeks ago, patient left for a doctor's appointment and ended up driving all the way to [place] where she ran out of gas. She was reportedly psychiatrically hospitalized in [place] and reportedly disclosed some suicidal ideation while treated there. suspects that precipitant for this manic episode was grandson's suicide about 3 weeks ago. He notes that the patient has a history of bipolar disorder and recently started seeing Dr. Bey. Before that had been seeing Olvin Mcgarry at [facility]. notes Dr. Bey started patient on Vraylar. She took 3 doses, perhaps some benefit but not long-lasting. He notes that she had been doing well with whatever medication Olvin was prescribing for her. is supportive of psychiatric hospitalization at this time. I called over to [facility] to get med list. Patient was most recently prescribed Seroquel 300 mg at bedtime. She has also been on Risperdal in the past. On my examination today, 01/27: Patient seen and examined with nurse, Snow. Chart reviewed. Case discussed with nursing staff. Patient remains manic. She did not sleep much if at all overnight. On my examination today, patient remains ebullient and expansive. Her speech is rapid and a little difficult to interrupt. Mood is "fantastic!" She is distractible and disinhibited. She proposes marriage to this provider apropos of nothing. She remains quite grandiose. She has offered all of the staff jobs in her employ for thousands of dollars per week. She offers me a job for $5,000/week. She denies SI/HI but seems unreliable to contract for safety. She denies audiovisual hallucinations. She complains of pain in her chest and left arm. I have ordered stat cardiac enzymes and discussed the matter with mid-level provider from the hospitalist service who will follow up on this issue. She does not appear to be in any physical distress. No other physical complaints. Spoke with patient's /healthcare surrogate at the number listed above. We discuss patient's legal status. We discuss pharmacotherapeutic options for management of patient's alison. We agree upon initiation of Depakote with possible introduction of Seroquel so long as the patient can be cleared by the hospitalist from cardiac standpoint. Atarax will be available as needed for anxiety and melatonin as needed for sleep. R/B/A for all medications reviewed with . - Inpatient Certification I certify that the inpatient services were ordered in accordance with Medicare regulations governing the order. This includes certification that hospital inpatient services are reasonable and necessary and in the case of services not specified as inpatient-only under 42 CFR 419.22(n), that they are appropriately provided as inpatient services in accordance to with the 2-midnight benchmark under 43 CFR 412.3(e) I certify that inpatient psychiatric hospital services are medically necessary. Evaluation and treatment and/or diagnostic testing are expected to improve the patient's condition. The patient needs on a daily basis, active treatment furnished directly by or requiring the supervision of inpatient psychiatric facility personnel. Estimated Total Length of Stay (Days): 9 (7-9) Plans for Post Hospital Care: Not yet determined Review of Systems All other systems reviewed negative except as stated in HPI (Limitation: Alison) PMFSH - History History Provided By: Patient - Medical History Medical History: Medical History (Last Updated 01/27/18 @ 08:58 by Janice Hernandez) HLD (hyperlipidemia) Leaky heart valve Pancreatitis Bipolar disorder History of frequent urinary tract infections Hypertension - Surgical History Surgical History: Surgical History (Last Updated 01/27/18 @ 08:58 by Janice Hernandez) Hx of breast lump removal - Tobacco History Second Hand Smoke Exposure: No Smoking Status: Never smoker Tobacco Type: Cigarettes - Alcohol History How Often Do You Have a Drink Containing Alcohol: 4 or more times a week - Substance Use History Substance History: No History of Abuse Medications and Allergies Active Medications: Active Medications Acetaminophen (Tylenol) 650 mg PO Q4H PRN PRN Reason: Pain 1-5 or Temp >101F Al Hydrox/Mg Hydrox/Simethicone (Mag-Al Plus Susp Liq) 30 ml PO Q6H PRN PRN Reason: DYSPEPSIA Al Hydroxide/Mg Hydroxide (Milk Of Magnesia Liq) 30 ml PO Q12H PRN PRN Reason: Mild Constipation Diphenhydramine HCl (Benadryl) 50 mg PO HS PRN PRN Reason: INSOMNIA Lisinopril (Prinivil) 5 mg PO DAILY ALFREDA Last Admin: 01/26/18 10:15 Dose: 5 mg Nicotine (Habitrol 21 Mg Patch.24 Hr) 1 patch T-DERMAL DAILY PRN PRN Reason: NICOTINE CRAVING Allergies Allergy/AdvReac Type Severity Reaction Status Date / Time No Known Allergies Uncoded 05/01/11 10:50 Results - Labs CBC & Chem 7: 01/26/18 21:08 Labs: Laboratory Results - last 24 hr 01/26/18 01/26/18 21:08 21:08 Hemoglobin A Cancelled Hemoglobin A2 Cancelled Hemoglobin F () Cancelled Hgb A2/F Interpret Cancelled Hemoglobin Variant 2 Cancelled Hemoglobin Variant 3 Cancelled Hemoglobin Variant % Cancelled Sodium 127 L Potassium 3.4 L Chloride 91 L Carbon Dioxide 24.5 Anion Gap 12 BUN 4 L Creatinine 0.64 Estimated GFR Greater than 89 Random Glucose 145 H Calcium 9.2 Triglycerides 331 H Cholesterol 174 LDL Cholesterol, Calc 63 HDL Cholesterol 45.3 Cholesterol/HDL Ratio 3.84 Laboratories reviewed. Ongoing mild hyponatremia and hypokalemia. EKG reveals sinus rhythm with sinus arrhythmia with a QTC of 396 ms, not prolonged. LFTs and platelets were checked on the medical floor and were within normal limits. Exam Vital signs: Vital Signs 01/26/18 18:15 01/27/18 06:00 Temperature 97.7 F 97.5 F L Pulse Rate 89 74 Respiratory Rate 18 17 Blood Pressure 109/58 L 169/72 H Pulse Oximetry 98 99 Intake & Output 01/26/18 01/27/18 01/27/18 18:59 06:59 18:59 Intake Total 340 / 340 Balance 340 / 340 Intake: Oral 240 / 240 Oral Supplement 100 / 100 Other: # Voids 7 Narrative: Physical examination completed by hospitalist cyber security consultant. On my examination today, the patient remains in no acute physical distress. No motor abnormalities noted. Laboratories and vital signs reviewed. Mental Status Examination Appearance: Appropriate Consciousness: Alert Orientation: x4 Motor Activity: Normal gait Speech: Rapid Language: Adequate Fund of Knowledge: Adequate Attention and Concentration: Easily distracted Mood: Manic, Other (Elevated) Affect: Other (Expansive) Thought Process & Associations: Loose associations Thought Content: Delusional Hallucination Type: None Delusion Type: Other (Grandiose) Suicidal Ideation: No Suicidal Plan: No Suicidal Intention: No Homicidal Ideation: No Homicidal Plan: No Homicidal Intention: No Insight: Poor Judgment: Poor Assessment and Plan - Assessment (1) Bipolar affective disorder, currently manic, severe, with psychotic features Code(s): F31.2 - Bipolar disorder, current episode manic severe with psychotic features Status: Acute - Plan Plan: 67-year-old female with psychiatric history as detailed above who presents in transfer from the medical floor under a Cook act. On my examination today, the patient remains severely manic with grandiose delusions. She requires psychiatric hospitalization at this time for safety, observation and stabilization. Admit inpatient. Involuntary status. I have completed first opinion. Consult for second opinion. Request healthcare surrogate and guardian advocate. Initiate Depakote DR 250 mg twice daily for mood stabilization. I did investigate and Depakote is only very rarely associated with hyponatremia. So long as the patient can be cleared from a cardiac standpoint by the hospitalist we will plan to add Seroquel to augment the Depakote for mood stabilization. Low-dose Atarax as needed for anxiety and melatonin as needed for sleep. Hospitalist consultation. Vitals every shift. Counselor to see. Disposition planning. Estimated length of stay: 7-9 days. Justification for Continued Inpatient Stay: See above Discharge Planning: Pending psychiatric stabilization Request Healthcare Surrogate/Guardian Advocate?: Yes
--- NOTE | 2018-01-27 08:29 | P.CON ---
History of Present Illness Service: [facility]/HEP Consult date: 01/26/18 Requesting Physician: Tres Desai Reason for Consult: Hyponatremia, follow up from med floor. Primary Care Provider: UNKNOWN Chief Complaint: "I have PTSD" History of Present Illness: 67-year-old female with past medical history significant for bipolar disorder, panic attacks, pancreatitis, HTN, HLD, and "leaky valves" who presented to the emergency department on 01/25 under Cook act due to altered mental status, paranoia, and suicidal ideation according to . Workup labs revealed sodium level of 122 with patient admitting she had drank large amounts of water up to 20 bottles a day along with frequent urination prior to admission. Patient was treated with IV fluids with NS along with fluid restrictions with sodium level improving to 127. Head CT was negative, started on lisinopril low dose for hypertension. Psychiatry was consulted and once medically stable was discharged to inpatient medical psychiatric unit. [facility] consulted to assist with ongoing management of hyponatremia. Patient is seen and examined sitting up in bed and appears to be in no acute distress. She is awake, alert, oriented to place, time, and self. She reports that she had a nephew that committed suicide a few weeks ago and following this she has suffered posttraumatic stress. She reports an array of complaints this morning. She reports left shoulder pain, neck pain, right lower abdominal pain, chest pain, and pain behind her left eye. She also reports SOB overnight. States that her chest pain is 5/10 and left shoulder montoya is 9/10. She reports that she has had this chest pain and shoulder pain in the past. She denies SOB at the moment. Patient also states that she has chronic urinary tract infections for which she is on antibiotics constantly. She denies any dysuria frequency at the moment, denies any fevers, chills, cough, nausea, vomiting or diarrhea. She goes on to tell me that she has her has Alzheimer's and she offers me money to take care of him. She provides me with his direct address and states that she would be very happy I I could care for him. She is later seen ambulating in the [place]oo asking for the telephone. Review of Systems All other systems reviewed negative except as stated in HPI [facility] - History History Provided By: Patient, Medical Record - Medical History Medical History: Medical History (Last Updated 01/27/18 @ 08:58 by Janice Hernandez) HLD (hyperlipidemia) Leaky heart valve Pancreatitis Bipolar disorder History of frequent urinary tract infections Hypertension - Surgical History Surgical History: Surgical History (Last Updated 01/27/18 @ 08:58 by Janice Hernandez) Hx of breast lump removal - Tobacco History Second Hand Smoke Exposure: No Smoking Status: Never smoker Tobacco Type: Cigarettes - Alcohol History How Often Do You Have a Drink Containing Alcohol: 4 or more times a week - Substance Use History Substance History: No History of Abuse Medications and Allergies Active Medications: Active Medications Acetaminophen (Tylenol) 650 mg PO Q4H PRN PRN Reason: Pain 1-5 or Temp >101F Al Hydrox/Mg Hydrox/Simethicone (Mag-Al Plus Susp Liq) 30 ml PO Q6H PRN PRN Reason: DYSPEPSIA Al Hydroxide/Mg Hydroxide (Milk Of Magnesia Liq) 30 ml PO Q12H PRN PRN Reason: Mild Constipation Diphenhydramine HCl (Benadryl) 50 mg PO HS PRN PRN Reason: INSOMNIA Lisinopril (Prinivil) 5 mg PO DAILY ALFREDA Last Admin: 01/26/18 10:15 Dose: 5 mg Nicotine (Habitrol 21 Mg Patch.24 Hr) 1 patch T-DERMAL DAILY PRN PRN Reason: NICOTINE CRAVING Allergies Allergy/AdvReac Type Severity Reaction Status Date / Time No Known Allergies Uncoded 05/01/11 10:50 Home Medications Medication Instructions Recorded Confirmed Type amlodipine 10 mg PO DAILY 01/27/18 01/27/18 History aripiprazole 5 mg PO DAILY 01/27/18 01/27/18 History aspirin 81 mg PO DAILY 01/27/18 01/27/18 History atorvastatin 40 mg PO DAILY 01/27/18 01/27/18 History cariprazine [Vraylar] 1.5 mg PO DAILY 01/27/18 01/27/18 History divalproex 500 mg PO TID 01/27/18 01/27/18 History folic acid 1 mg PO DAILY 01/27/18 01/27/18 History lorazepam 1 mg PO Q6HR PRN 01/27/18 01/27/18 History mirtazapine 7.5 mg PO DAILY 01/27/18 01/27/18 History omeprazole 40 mg PO DAILY 01/27/18 01/27/18 History propranolol 20 mg PO BID 01/27/18 01/27/18 History trazodone 100 mg PO DAILY 01/27/18 01/27/18 History Physical Exam Vital signs: Vital Signs 01/26/18 18:15 01/27/18 06:00 Temperature 36.5 C 36.4 C L Pulse Rate 89 74 Respiratory Rate 18 17 Blood Pressure 109/58 L 169/72 H Pulse Oximetry 98 99 Intake & Output 01/26/18 01/27/18 01/27/18 18:59 06:59 18:59 Intake Total 340 / 340 Balance 340 / 340 Intake: Oral 240 / 240 Oral Supplement 100 / 100 Other: # Voids 7 Narrative: GENERAL: Well-nourished, well-developed, female in no acute distress. SKIN: Warm and dry. HEAD: Atraumatic. Normocephalic. EYES: Pupils equal and round. No scleral icterus. No injection or drainage. ENT: No nasal bleeding or discharge. Mucous membranes pink and moist. NECK: Trachea midline. No JVD. CARDIOVASCULAR: Regular rate and rhythm. RESPIRATORY: No accessory muscle use. Clear to auscultation. Breath sounds equal bilaterally. GASTROINTESTINAL: Abdomen soft, non-tender, nondistended. + Bowel sounds in all quadrants. MUSCULOSKELETAL: Extremities without clubbing, cyanosis, or edema. No obvious deformities. NEUROLOGICAL: Awake and alert, oriented to self, place, time. No obvious cranial nerve deficits. Motor grossly within normal limits. Five out of 5 muscle strength in the arms and legs. Pressured speech. Assessment and Plan - Assessment (1) Hyponatremia Code(s): E87.1 - Hypo-osmolality and hyponatremia Status: Acute (2) Bipolar 1 disorder Code(s): F31.9 - Bipolar disorder, unspecified Status: Acute (3) Hypertension Code(s): I10 - Essential (primary) hypertension Status: Acute (4) Chest pain Code(s): R07.9 - Chest pain, unspecified Status: Acute - Plan 67-year-old female with past medical history significant for bipolar disorder, panic attacks, pancreatitis, HTN, HLD, and "leaky valves" who presented to the emergency department on 01/25 under Cook act due to altered mental status, paranoia, and suicidal ideation according to . Patient was admitted and treated for hyponatremia, sodium levels improved, psych consult placed for further evaluation. Patient now admitted to inpatient medical psychiatry unit, [facility] consulted to assist with ongoing medical management of hyponatremia. Bipolar disorder -Treatment plan per psychiatry. -CT of the head negative, UA negative -QT acceptable, no contraindication for antipsychotic use, discussed with . Hyponatremia, mild 127 Hypokalemia, mild -Continue fluid restriction with 800 mL's per day -BMP for this morning pending -Seen level yesterday 3.4, replaced with 20 meq's p.o., recheck BMP today Hypertension Hyperlipidemia -Patient started on low-dose lisinopril, continue monitoring BP and adjusting medications accordingly -Nurse to try and obtain medication list from either or patient's pharmacy Chest pain Shortness of breath -Patient with past medical history of leaky valves along with HTN in HLD -EKG with SR, troponin negative. QT interval 351. -Lung sounds clear on exam, oxygen saturation 99% on room air -+ Hx asthma, will order PRN albuterol for SOB Shoulder pain -Tylenol as needed, likely arthritis DVT prophylaxis-ambulation Thank you for this consultation, will continue to follow along with you. Discussed Condition With: Discharge Planning: Pending psych clearance.
[2018-01-27] MEDS: Lisinopril 5 MG Tablet PO SCH (09:35)
--- NOTE | 2018-01-27 12:19 | P.CONPSY ---
Provisional Diagnosis Admission Date: January 26, 2018 17:34 [place] I.: 1. Bipolar disorder, currently manic, severe with psychotic features [place] II.: Deferred History of Present Illness Service: Psychiatry Consult date: 01/27/18 Requesting Physician: Tres Desai Reason for Consult: Second opinion petition supporting [employer] Primary Care Provider: UNKNOWN Chief Complaint: "I have PTSD" History of Present Illness: Patient is 67-year-old white female with a marked [place] brogue admitted to Dr. Tres Desai service under the Cook act. Dr. Desai assigned first opinion petition supporting [facility] [employer]. I have reviewed his dictation, I am seeing patient in her room with nurse Snow. Patient is quite flagrantly manic grandiose intense and delusional. Showing no insight into her disease. At this time I agree with Dr. Desai patient meets criteria for involuntary psychiatric hospitalization under the [employer] act. Thus I will cosign second opinion petition supporting [facility] Review of Systems All other systems reviewed negative except as stated in HPI PMFSH - History History Provided By: Patient - Medical History Medical History: Medical History (Last Updated 01/27/18 @ 08:58 by Janice Hernandez) HLD (hyperlipidemia) Leaky heart valve Pancreatitis Bipolar disorder History of frequent urinary tract infections Hypertension - Surgical History Surgical History: Surgical History (Last Updated 01/27/18 @ 08:58 by Janice Hernandez) Hx of breast lump removal - Tobacco History Second Hand Smoke Exposure: No Smoking Status: Never smoker Tobacco Type: Cigarettes - Alcohol History How Often Do You Have a Drink Containing Alcohol: 4 or more times a week - Substance Use History Substance History: No History of Abuse Medications and Allergies Active Medications: Active Medications Acetaminophen (Tylenol) 650 mg PO Q4H PRN PRN Reason: Pain 1-5 or Temp >101F Al Hydrox/Mg Hydrox/Simethicone (Mag-Al Plus Susp Liq) 30 ml PO Q6H PRN PRN Reason: DYSPEPSIA Al Hydroxide/Mg Hydroxide (Milk Of Magnesia Liq) 30 ml PO Q12H PRN PRN Reason: Mild Constipation Albuterol (Ventolin Hfa Inh) 2 puff INH Q4H PRN PRN Reason: SHORTNESS OF BREATH/WHEEZING Divalproex Sodium (Depakote Dr) 250 mg PO BID ALFREDA Hydroxyzine HCl (Atarax) 10 mg PO Q6H PRN PRN Reason: ANXIETY Lisinopril (Prinivil) 5 mg PO DAILY [facility] Last Admin: 01/27/18 09:35 Dose: 5 mg Melatonin (Melatonin) 5 mg PO HS PRN PRN Reason: INSOMNIA Nicotine (Habitrol 21 Mg Patch.24 Hr) 1 patch T-DERMAL DAILY PRN PRN Reason: NICOTINE CRAVING Allergies Allergy/AdvReac Type Severity Reaction Status Date / Time No Known Allergies Uncoded 05/01/11 10:50 Exam Vital signs: Vital Signs 01/26/18 18:15 01/27/18 06:00 Temperature 97.7 F 97.5 F L Pulse Rate 89 74 Respiratory Rate 18 17 Blood Pressure 109/58 L 169/72 H Pulse Oximetry 98 99 Intake & Output 01/26/18 01/27/18 01/27/18 18:59 06:59 18:59 Intake Total 340 / 340 Balance 340 / 340 Weight 70.1 kg Intake: Oral 240 / 240 Oral Supplement 100 / 100 Other: # Voids 7 Narrative: Patient seen in her room ambulating in no acute distress, no respiratory distress, no complaints of chest pain, no complaints of abdominal pain. Patient moving all 4 extremities without difficulty Mental Status Examination Appearance: Appropriate Consciousness: Alert Orientation: x4 Motor Activity: Normal gait Speech: Rapid Language: Adequate Fund of Knowledge: Adequate Attention and Concentration: Easily distracted Mood: Manic, Other (Elevated) Affect: Other (Expansive) Thought Process & Associations: Loose associations Thought Content: Delusional Hallucination Type: None Delusion Type: Other (Grandiose) Suicidal Ideation: No Suicidal Plan: No Suicidal Intention: No Homicidal Ideation: No Homicidal Plan: No Homicidal Intention: No Insight: Poor Judgment: Poor Assessment and Plan - Assessment (1) Bipolar affective disorder, currently manic, severe, with psychotic features Code(s): F31.2 - Bipolar disorder, current episode manic severe with psychotic features Status: Acute - Plan Plan: I agree with Dr. Desai patient meets criteria for involuntary psychiatric hospitalization thus I will cosign second opinion petition supporting [facility] Justification for Continued Inpatient Stay: At this time patient would decompensate a place to a lower level of care Request Healthcare Surrogate/Guardian Advocate?: Yes
[2018-01-27] MEDS: Divalproex 250 MG DR Tablet PO SCH ×2 (16:04→20:55)
[2018-01-27] MEDS: Acetaminophen 325 MG Tablet PO PRN (18:31)
[2018-01-27] MEDS: Melatonin 5 MG Tablet PO PRN (20:55)
[2018-01-27 22:42] LABS: Hemoglobin A1c 5.2 % (4.3-6.0)
--- NOTE | 2018-01-27 23:27 | ECG ---
Date Performed: 01/26/2018 Time Performed: 18:45:32 PTAGE: 67 years EKG: Sinus rhythm WITH SINUS ARRHYTHMIA MARKED LEFT AXIS DEVIATION ABNORMAL ECG PREVIOUS TRACING : 08/07/2010 19.34 Since the previous tracing, no significant change noted DOCTOR: Jm Rick Interpretating Date/Time 01/27/2018 23:25:27
[2018-01-28 07:53] LABS: Anion Gap 11 meq/L (5-15); Blood Urea Nitrogen 4 mg/dL (7-18); Calcium 9.3 mg/dL (8.5-10.1); Carbon Dioxide 24.5 meq/L (21.0-32.0); Chloride 92 meq/L (98-107); Glomerular Filtration Rate Greater Than 89 mL/min (>89); Glucose,Random 108 mg/dL (74-106); Potassium 4.2 meq/L (3.5-5.1); Sodium 127 meq/L (136-145)
--- NOTE | 2018-01-28 08:30 | P.PN ---
Subjective Interval history: Follow-up for hyponatremia and chest pain. Patient is seen and examined in her room she repots that she is doing "much better". States that she was told by the psychiatrist that she would be going home today. She denies any fevers, chill, N/V/D, cough, SOB or chest pain. Spoke with nurse who states that patient was not compliant with fluid restrictions and she was given tea overnight. Discussed the importance of fluid restrictions with patient. Physical Exam Vital signs: Vital Signs 01/27/18 17:47 01/28/18 06:00 Temperature 36.8 C 36.8 C Pulse Rate 85 68 Respiratory Rate 18 18 Blood Pressure 140/65 142/66 H Pulse Oximetry 97 96 Intake & Output 01/27/18 01/28/18 01/28/18 18:59 06:59 18:59 Intake Total 2160 / 2160 340 / 340 Balance 2160 / 2160 340 / 340 Weight 70.1 kg Intake: Oral 2160 / 2160 240 / 240 Oral Supplement 100 / 100 Other: # Voids 3 4 Narrative: GENERAL: Well-nourished, well-developed, female in no acute distress. SKIN: Warm and dry. HEAD: Atraumatic. Normocephalic. EYES: Pupils equal and round. No scleral icterus. No injection or drainage. ENT: No nasal bleeding or discharge. Mucous membranes pink and moist. NECK: Trachea midline. No JVD. CARDIOVASCULAR: Regular rate and rhythm. RESPIRATORY: No accessory muscle use. Clear to auscultation. Breath sounds equal bilaterally. GASTROINTESTINAL: Abdomen soft, non-tender, nondistended. + Bowel sounds in all quadrants. MUSCULOSKELETAL: Extremities without clubbing, cyanosis, or edema. No obvious deformities. NEUROLOGICAL: Awake and alert, oriented to self, place, time. No obvious cranial nerve deficits. Motor grossly within normal limits. Five out of 5 muscle strength in the arms and legs. Pressured speech. Results - Labs CBC & Chem 7: 01/28/18 07:08 Laboratory Results - last 24 hr 01/26/18 01/27/18 01/27/18 21:08 11:13 11:13 Sodium Potassium Chloride Carbon Dioxide Anion Gap BUN Creatinine Estimated GFR Random Glucose Hemoglobin A1c 5.2 Calcium Total Creatine Kinase 72 Troponin I Less than 0.02 L 01/28/18 07:08 Sodium 127 L Potassium 4.2 D Chloride 92 L Carbon Dioxide 24.5 Anion Gap 11 BUN 4 L Creatinine 0.53 Estimated GFR Greater than 89 Random Glucose 108 H Hemoglobin A1c Calcium 9.3 Total Creatine Kinase Troponin I Assessment and Plan - Assessment (1) Hyponatremia Code(s): E87.1 - Hypo-osmolality and hyponatremia Status: Acute (2) Bipolar 1 disorder Code(s): F31.9 - Bipolar disorder, unspecified Status: Acute (3) Hypertension Code(s): I10 - Essential (primary) hypertension Status: Acute (4) Chest pain Code(s): R07.9 - Chest pain, unspecified Status: Acute - Plan 67-year-old female with past medical history significant for bipolar disorder, panic attacks, pancreatitis, HTN, HLD, and "leaky valves" who presented to the emergency department on 01/25 under Cook act due to altered mental status, paranoia, and suicidal ideation according to . Patient was admitted and treated for hyponatremia, sodium levels improved, psych consult placed for further evaluation. Patient now admitted to inpatient medical psychiatry unit, [facility] consulted to assist with ongoing medical management of hyponatremia. Bipolar disorder -Treatment plan per psychiatry. -CT of the head negative, UA negative -QT acceptable, no contraindication for antipsychotic use, discussed with . Hyponatremia, mild 127 Hypokalemia, resolved -Continue fluid restriction with 800 mL's per day -NA 127, patient not compliant with fluid restrictions overnight, reiterated importance -Continue to follow sodium levels for improvement Hypertension Hyperlipidemia -Continue lisinopril, home Norvasc, propranolol, and statin restarted. Chest pain Shortness of breath -Patient with past medical history of leaky valves along with HTN in HLD -EKG with SR, troponin negative. QT interval 351. -Lung sounds clear on exam, oxygen saturation stable on room air -+ Hx asthma, will order PRN albuterol for SOB -Denies chest pain today Shoulder pain -Tylenol as needed, likely arthritis DVT prophylaxis-ambulation Discussed Condition With: Discussed with patient and shochet Planning: Pending psych clearance.
[2018-01-28] MEDS: Divalproex 250 MG DR Tablet PO SCH ×2 (08:36→20:30)
[2018-01-28] MEDS: amLODIPine 10 MG Tablet PO SCH (08:36)
[2018-01-28] MEDS: Folic Acid 1 MG Tablet PO SCH (08:36)
[2018-01-28] MEDS: Lisinopril 5 MG Tablet PO SCH (08:36)
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
[2018-01-28] MEDS: QUEtiapine 25 MG Tablet PO SCH ×2 (15:53→20:31)
[2018-01-28] MEDS: Melatonin 5 MG Tablet PO PRN (20:31)
--- NOTE | 2018-01-29 08:30 | P.PN ---
Subjective Interval history: Follow-up visit for hyponatremia. Patient seen ambulating in the halls, later examined resting in bed in her room. She denies any fevers, chills, nausea, vomiting, diarrhea, cough, shortness of breath or chest pain. She reports being compliant with fluid restrictions, voices no acute concerns or complaints. Physical Exam Vital signs: Vital Signs 01/28/18 18:08 01/29/18 05:45 Temperature 36.6 C 36.3 C L Pulse Rate 74 67 Respiratory Rate 16 18 Blood Pressure 113/81 141/65 H Pulse Oximetry 95 93 L Intake & Output 01/28/18 01/29/18 01/29/18 18:59 06:59 18:59 Intake Total 1200 / 1200 840 / 840 Output Total 3 / 3 Balance 1200 / 1200 837 / 837 Weight 74 kg Intake: Oral 1200 / 1200 840 / 840 Output: Urine Narrative: GENERAL: Well-nourished, well-developed, female in no acute distress. SKIN: Warm and dry. HEAD: Atraumatic. Normocephalic. EYES: Pupils equal and round. No scleral icterus. No injection or drainage. ENT: No nasal bleeding or discharge. Mucous membranes pink and moist. NECK: Trachea midline. CARDIOVASCULAR: Regular rate and rhythm. RESPIRATORY: No accessory muscle use. Clear to auscultation. Breath sounds equal bilaterally. GASTROINTESTINAL: Abdomen soft, non-tender, nondistended. + Bowel sounds in all quadrants. MUSCULOSKELETAL: Extremities without clubbing, cyanosis, or edema. No obvious deformities. NEUROLOGICAL: Awake and alert. No obvious cranial nerve deficits. Motor grossly within normal limits. Pressured speech. Results - Labs CBC & Chem 7: 01/29/18 11:15 Assessment and Plan - Assessment (1) Hyponatremia Code(s): E87.1 - Hypo-osmolality and hyponatremia Status: Acute (2) Bipolar 1 disorder Code(s): F31.9 - Bipolar disorder, unspecified Status: Acute (3) Hypertension Code(s): I10 - Essential (primary) hypertension Status: Acute (4) Chest pain Code(s): R07.9 - Chest pain, unspecified Status: Acute - Plan 67-year-old female with past medical history significant for bipolar disorder, panic attacks, pancreatitis, HTN, HLD, and "leaky valves" who presented to the emergency department on 01/25 under Cook act due to altered mental status, paranoia, and suicidal ideation according to . Patient was admitted and treated for hyponatremia, sodium levels improved, psych consult placed for further evaluation. Patient now admitted to inpatient medical psychiatry unit, [facility] consulted to assist with ongoing medical management of hyponatremia. Bipolar disorder -Treatment plan per psychiatry. -CT of the head negative, UA negative -QT acceptable, no contraindication for antipsychotic use, discussed with previously. Hyponatremia, mild 127 Hypokalemia, resolved -Continue fluid restriction with 800 mL's per day -NA 127-->120 today start sodium tabs 1 g 3 times daily. Discussed with Dr. Alexandre -Hold lisinopril due to potential side effect of SIADH -Continue to follow sodium levels for improvement Hypertension Hyperlipidemia -Continue lisinopril, home Norvasc, propranolol, and statin. Chest pain Shortness of breath -Patient with past medical history of leaky valves along with HTN in HLD -EKG with SR, troponin negative. QT interval 351. 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
[2018-01-29] MEDS: Folic Acid 1 MG Tablet PO SCH (09:13)
[2018-01-29] MEDS: Divalproex 250 MG DR Tablet PO SCH ×2 (09:13→20:27)
[2018-01-29] MEDS: Lisinopril 5 MG Tablet PO SCH (09:14)
[2018-01-29] MEDS: amLODIPine 10 MG Tablet PO SCH (09:14)
[2018-01-29] MEDS: QUEtiapine 25 MG Tablet PO SCH ×2 (09:15→20:27)
[2018-01-29] MEDS ORDERED: Sod Chloride 0.9% Inj 1,000 ML IV.CONT SCH (13:00)
--- NOTE | 2018-01-29 15:05 | P.PNPSY ---
Subjective Chief Complaint: Aleksandra Remarks: Patient seen and examined with nurse. Chart reviewed. Case discussed with nursing staff. Patient remains grandiose but medication compliant. On my examination today, patient remains manic. Mood is elevated. Speech is a little less rapid and more focused. She remains grandiose. Denies side effects from medications. No physical complaints. Vital Signs Temp Pulse Resp BP Pulse Ox 01/29/18 05:45 97.4 F L 67 18 141/65 H 93 L 01/28/18 18:08 97.9 F 74 16 113/81 95 Intake and Output 01/29/18 01/29/18 01/29/18 06:59 14:59 22:59 Intake Total 120 / 120 360 / 360 Output Total 2 / 2 Balance 118 / 118 360 / 360 Intake: Oral 120 / 120 360 / 360 Output: Urine 2 / Other: Weight 74 kg Laboratory Results - last 24 hr 01/29/18 11:15 Sodium 120 L* Laboratories reviewed. Hyponatremia has worsened. Hospitalist has added sodium tablets. Review of Systems All other systems reviewed negative except as stated in HPI Mental Status Examination Appearance: Appropriate Consciousness: Alert Orientation: Person, Place (At least) Motor Activity: Other (No hand tremor, no cogwheeling, no dystonia, no dyskinesia, no other motor abnormalities noted.) Speech: Rapid (Decreasing) Language: Other (More focused) Fund of Knowledge: Adequate Attention and Concentration: Easily distracted Mood: Manic Affect: Other (Expansive) Thought Process & Associations: Loose associations Thought Content: Delusional Hallucination Type: None Delusion Type: Other (Remains grandiose) Suicidal Ideation: No Suicidal Plan: No Suicidal Intention: No Homicidal Ideation: No Homicidal Plan: No Homicidal Intention: No Insight: Poor Judgment: Poor Assessment and Plan - Assessment (1) Bipolar affective disorder, currently manic, severe, with psychotic features Code(s): F31.2 - Bipolar disorder, current episode manic severe with psychotic features Status: Acute - Plan Plan: Titrate Seroquel to 75 mg twice a day for mood stabilization. Both the Seroquel and Depakote are rarely associated with hyponatremia (<1% for each per [employer]). If hyponatremia continues to worsen despite supplementation and if either of these agents is implicated, we could of course alter therapy. For now , however, the risk-benefit profile favors their continuation to manage patient' s ongoing aleksandra. Continue to monitor on the medical psychiatric unit. Hospitalist input noted and appreciated. Continue other medications and care as ordered. Justification for Continued Inpatient Stay: Complicating condition. Impairment in reality construction. High risk for decompensation in less restrictive environment. Discharge Planning: Pending psychiatric stabilization. Request Healthcare Surrogate/Guardian Advocate?: Yes
[2018-01-30] MEDS: Divalproex 250 MG DR Tablet PO SCH ×2 (08:43→21:04)
[2018-01-30] MEDS: Sodium Chloride 1 GM Tablet PO SCH (08:43)
[2018-01-30] MEDS: amLODIPine 10 MG Tablet PO SCH (08:44)
[2018-01-30] MEDS: QUEtiapine 25 MG Tablet PO SCH (08:44)
[2018-01-30] MEDS: Folic Acid 1 MG Tablet PO SCH (08:44)
[2018-01-30 08:47] LABS: Anion Gap 10 meq/L (5-15); Blood Urea Nitrogen 6 mg/dL (7-18); Calcium 8.8 mg/dL (8.5-10.1); Carbon Dioxide 24.6 meq/L (21.0-32.0); Chloride 88 meq/L (98-107); Glomerular Filtration Rate Greater Than 89 mL/min (>89); Glucose,Random 95 mg/dL (74-106); Potassium 4.1 meq/L (3.5-5.1)
[2018-01-30 09:01] LABS: Sodium 123 meq/L (136-145)
--- NOTE | 2018-01-30 12:24 | P.PNPSY ---
Subjective Chief Complaint: Aleksandra Remarks: Patient seen and examined with counselor and nurse. Chart reviewed. Case discussed with nursing staff who reports aleksandra is slowly abating. Case discussed in treatment team. Counselor has reached out to patient's who has been in telephone contact with the patient, being unable to make the trip in person due to his health conditions. He reports ongoing grandiosity and conversations although there is a trajectory of improvement in his opinion I am told. On my examination today, the patient's speech is less rapid. She is less grandiose. Mood remains "fantastic!" She is a little less distractible. Denies racing thoughts. Sleeping well. Denies side effects from medications and notes "the pills are really helping me." No physical complaints. Vital Signs Temp Pulse Resp BP Pulse Ox 01/30/18 06:46 97.6 F 59 L 18 121/57 L 95 01/29/18 20:00 97.6 F 71 17 120/56 L 95 Intake and Output 01/29/18 01/30/18 01/30/18 22:59 06:59 14:59 Intake Total 480 / 480 120 / 120 Balance 480 / 480 120 / 120 Intake: Oral 480 / 480 120 / 120 Other: # Voids 1 4 Laboratory Results - last 24 hr 01/29/18 01/30/18 11:15 08:03 Sodium 120 L* 123 L* Potassium 4.1 Chloride 88 L Carbon Dioxide 24.6 Anion Gap 10 BUN 6 L Creatinine 0.46 L Estimated GFR Greater than 89 Random Glucose 95 Calcium 8.8 Sodium somewhat improved today status post initiation of sodium tablets. Review of Systems All other systems reviewed negative except as stated in HPI Mental Status Examination Appearance: Appropriate Consciousness: Alert Orientation: Person, Place (At least) Motor Activity: Other (No motor abnormalities noted) Speech: Other (Only slightly rapid) Language: Adequate Fund of Knowledge: Adequate Attention and Concentration: Easily distracted Mood: Manic (Improving) Affect: Other (Expansive, decreasing) Thought Process & Associations: Loose associations (More focused today) Thought Content: Delusional Hallucination Type: None Delusion Type: Other (Grandiosity decreasing) Suicidal Ideation: No Homicidal Ideation: No Insight: Poor Judgment: Poor Assessment and Plan - Assessment (1) Bipolar affective disorder, currently manic, severe, with psychotic features Code(s): F31.2 - Bipolar disorder, current episode manic severe with psychotic features Status: Acute - Plan Plan: Patient does seem to be improving with current psychotropic regimen. Titrate Seroquel to 100 mg twice daily to target grandiosity and for mood stabilization. Continue Depakote as ordered with plans to check a Depakote and ammonia level tomorrow morning. Please adjust Depakote dose based on the level. Appreciate hospitalist input regarding patient's hyponatremia. Continue to monitor on the medical psychiatric unit. Continue other medications and care as ordered. Justification for Continued Inpatient Stay: Medication changes. Risk for decompensation in less restrictive environment. Discharge Planning: Pending psychiatric stabilization. Hopeful for discharge beginning or middle of next week. Request Healthcare Surrogate/Guardian Advocate?: Yes
--- NOTE | 2018-01-30 14:16 | P.PN ---
Subjective Interval history: Follow-up visit for hyponatremia. Pt. ambulating, somewhat rapid speech, feels "great". Difficult to focus on conversation. Denies any N/V/D, no cp, no sob. Eating well. Taking sodium tabs without any difficulty. 12 point ROS negative except as noted above, unreliable. Physical Exam Vital signs: Vital Signs 01/29/18 20:00 01/30/18 06:46 Temperature 97.6 F 97.6 F Pulse Rate 71 59 L Respiratory Rate 17 18 Blood Pressure 120/56 L 121/57 L Pulse Oximetry 95 95 Intake & Output 01/29/18 01/30/18 01/30/18 18:59 06:59 18:59 Intake Total 360 / 360 600 / 600 Balance 360 / 360 600 / 600 Intake: Oral 360 / 360 600 / 600 Other: # Voids 4 Narrative: GENERAL: Well-nourished, well-developed, female in no acute distress. SKIN: Warm and dry. HEAD: Atraumatic. Normocephalic. EYES: Pupils equal and round. No scleral icterus. No injection or drainage. ENT: No nasal bleeding or discharge. Mucous membranes pink and moist. NECK: Trachea midline. CARDIOVASCULAR: Regular rate and rhythm. RESPIRATORY: No accessory muscle use. Clear to auscultation. Breath sounds equal bilaterally. GASTROINTESTINAL: Abdomen soft, non-tender, nondistended. + Bowel sounds in all quadrants. MUSCULOSKELETAL: Extremities without clubbing, cyanosis, or edema. No obvious deformities. NEUROLOGICAL: Awake and alert. No obvious cranial nerve deficits. Motor grossly within normal limits. Pressured speech. Results - Labs CBC & Chem 7: 01/30/18 08:03 Laboratory Results - last 24 hr 01/30/18 08:03 Sodium 123 L* Potassium 4.1 Chloride 88 L Carbon Dioxide 24.6 Anion Gap 10 BUN 6 L Creatinine 0.46 L Estimated GFR Greater than 89 Random Glucose 95 Calcium 8.8 Assessment and Plan - Assessment (1) Hyponatremia Code(s): E87.1 - Hypo-osmolality and hyponatremia Status: Acute (2) Bipolar 1 disorder Code(s): F31.9 - Bipolar disorder, unspecified Status: Acute (3) Hypertension Code(s): I10 - Essential (primary) hypertension Status: Acute (4) Chest pain Code(s): R07.9 - Chest pain, unspecified Status: Acute - Plan Assessment/Plan 67-year-old female with past medical history significant for bipolar disorder, panic attacks, pancreatitis, HTN, HLD, and "leaky valves" who presented to the emergency department on 01/25 under Cook act due to altered mental status, paranoia, and suicidal ideation according to . Patient was admitted and treated for hyponatremia, sodium levels improved, psych consult placed for further evaluation. Patient now admitted to inpatient medical psychiatry unit, [facility] consulted to assist with ongoing medical management of hyponatremia. Bipolar disorder -Treatment plan per psychiatry-on Seroquel and Depakote. Psych following Depakote levels as well as ammonia -CT of the head negative, UA negative Hyponatremia, mild 127 initially then trending down Hypokalemia, resolved -Continue fluid restriction with 800 mL's per day -NA improving, 123. -Continue with sodium tabs 1 g 3 times daily. -Hold lisinopril due to potential side effect of SIADH -Continue to follow sodium levels for improvement Hypertension Hyperlipidemia -Continue lisinopril, home Norvasc, propranolol, and statin. Chest pain Shortness of breath -Patient with past medical history of leaky valves along with HTN in HLD -EKG with SR, troponin negative. QT interval 351. -no cardiac complaints Hx asthma -continue PRN albuterol for SOB Shoulder pain -Tylenol as needed, likely arthritis DVT prophylaxis-ambulation
[2018-01-30] MEDS: QUEtiapine 100 MG Tablet PO SCH (21:04)
[2018-01-30] MEDS: Acetaminophen 325 MG Tablet PO PRN (23:13)
[2018-01-31 07:37] LABS: Anion Gap 10 meq/L (5-15); Blood Urea Nitrogen 6 mg/dL (7-18); Calcium 8.8 mg/dL (8.5-10.1); Carbon Dioxide 24.1 meq/L (21.0-32.0); Chloride 90 meq/L (98-107); Glomerular Filtration Rate Greater Than 89 mL/min (>89); Glucose,Random 93 mg/dL (74-106); Potassium 3.9 meq/L (3.5-5.1); Valproic Acid 58 mcg/mL (50-100)
[2018-01-31 07:44] LABS: Sodium 124 meq/L (136-145)
[2018-01-31] MEDS: Sodium Chloride 1 GM Tablet PO SCH ×3 (08:43→17:01)
[2018-01-31] MEDS: QUEtiapine 100 MG Tablet PO SCH ×2 (08:43→20:49)
[2018-01-31] MEDS: amLODIPine 10 MG Tablet PO SCH (08:44)
[2018-01-31] MEDS: Folic Acid 1 MG Tablet PO SCH (08:44)
[2018-01-31] MEDS: Divalproex 250 MG DR Tablet PO SCH ×2 (08:44→20:49)
--- NOTE | 2018-01-31 09:27 | P.PN ---
Subjective Interval history: follow up for hyponatremia, pt. has no complaints, no cp, no sob, eating well. Voiding okay. States that she is waiting for doctor, hoping to go home next week. Feels better Physical Exam Vital signs: Vital Signs 01/30/18 18:17 01/31/18 05:11 Temperature 98.8 F 97.9 F Pulse Rate 70 65 Respiratory Rate 18 17 Blood Pressure 158/64 H 140/68 Pulse Oximetry 98 97 Intake & Output 01/30/18 01/31/18 01/31/18 18:59 06:59 18:59 Intake Total 480 / 480 480 / 480 960 / 960 Output Total 2 / 2 Balance 480 / 480 478 / 478 960 / 960 Intake: Oral 480 / 480 480 / 480 960 / 960 Output: Urine 2 / 2 Narrative: GENERAL: Well-nourished, well-developed, female in no acute distress. SKIN: Warm and dry. HEAD: Atraumatic. Normocephalic. EYES: Pupils equal and round. No scleral icterus. No injection or drainage. ENT: No nasal bleeding or discharge. Mucous membranes pink and moist. NECK: Trachea midline. CARDIOVASCULAR: Regular rate and rhythm. RESPIRATORY: No accessory muscle use. Clear to auscultation. Breath sounds equal bilaterally. GASTROINTESTINAL: Abdomen soft, non-tender, nondistended. + Bowel sounds in all quadrants. MUSCULOSKELETAL: Extremities without clubbing, cyanosis, or edema. No obvious deformities. NEUROLOGICAL: Awake and alert. No obvious cranial nerve deficits. Motor grossly within normal limits. Pressured speech. Results - Labs CBC & Chem 7: 01/31/18 06:47 Laboratory Results - last 24 hr 01/31/18 01/31/18 06:47 06:47 Sodium 124 L* Potassium 3.9 Chloride 90 L Carbon Dioxide 24.1 Anion Gap 10 BUN 6 L Creatinine 0.46 L Estimated GFR Greater than 89 Random Glucose 93 Calcium 8.8 Ammonia 26 Valproic Acid 58 Assessment and Plan - Assessment (1) Hyponatremia Code(s): E87.1 - Hypo-osmolality and hyponatremia Status: Acute (2) Bipolar 1 disorder Code(s): F31.9 - Bipolar disorder, unspecified Status: Acute (3) Hypertension Code(s): I10 - Essential (primary) hypertension Status: Acute (4) Chest pain Code(s): R07.9 - Chest pain, unspecified Status: Acute - Plan Assessment/Plan 67-year-old female with past medical history significant for bipolar disorder, panic attacks, pancreatitis, HTN, HLD, and "leaky valves" who presented to the emergency department on 01/25 under [place] act due to altered mental status, paranoia, and suicidal ideation according to . Patient was admitted and treated for hyponatremia, sodium levels improved, psych consult placed for further evaluation. Patient now admitted to inpatient medical psychiatry unit, [facility] consulted to assist with ongoing medical management of hyponatremia. Bipolar disorder -Treatment plan per psychiatry-on Seroquel and Depakote. Psych following Depakote levels as well as ammonia, reviewed, normal. -CT of the head negative, UA negative Hyponatremia, mild 127 initially then trending down. Reviewed previous med records, prior hx of hyponatremia, etiology unclear Hypokalemia, resolved -Continue fluid restriction with 800 mL's per day -NA improving, 124 -Continue with sodium tabs 1 g 3 times daily. -Hold lisinopril due to potential side effect of SIADH -Continue to follow sodium levels for improvement -will check urine and serum osmolality Hypertension Hyperlipidemia -Continue Norvasc, propranolol, and statin. Chest pain Shortness of breath -Patient with past medical history of leaky valves along with HTN in HLD -EKG with SR, troponin negative. QT interval 351. -no cardiac complaints Hx asthma -continue PRN albuterol for SOB Shoulder pain -Tylenol as needed, likely arthritis DVT prophylaxis-ambulation
--- NOTE | 2018-01-31 16:53 | P.PNPSY ---
Subjective Chief Complaint: Aleksandra Remarks: Patient was seen and case discussed with nursing. Patient is pleasant but delusional. 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 She is compliant with medications and behaving well on the unit. Mental Status Examination Appearance: Appropriate Consciousness: Alert Orientation: Person, Place (At least) Motor Activity: Other (No motor abnormalities noted) Speech: Other (Only slightly rapid) Language: Adequate Fund of Knowledge: Adequate Attention and Concentration: Easily distracted Mood: Manic (Improving) Affect: Other (Expansive, decreasing) Thought Process & Associations: Loose associations (More focused today) Thought Content: Delusional Hallucination Type: None Delusion Type: Bizarre, Other (350 models work for her) Suicidal Ideation: No Suicidal Plan: No Suicidal Intention: No Homicidal Ideation: No Homicidal Plan: No Homicidal Intention: No Insight: Poor Judgment: Poor Assessment and Plan - Assessment (1) Bipolar affective disorder, currently manic, severe, with psychotic features Code(s): F31.2 - Bipolar disorder, current episode manic severe with psychotic features Status: Acute - Plan Plan: Continue current treatment plan Justification for Continued Inpatient Stay: Patient would decompensate in a less restrictive setting Request Healthcare Surrogate/Guardian Advocate?: Yes
[2018-02-01] MEDS: Folic Acid 1 MG Tablet PO SCH (09:03)
[2018-02-01] MEDS: QUEtiapine 100 MG Tablet PO SCH ×2 (09:03→20:36)
[2018-02-01] MEDS: Divalproex 250 MG DR Tablet PO SCH ×2 (09:03→20:36)
[2018-02-01] MEDS: amLODIPine 10 MG Tablet PO SCH (09:03)
[2018-02-01] MEDS: Sodium Chloride 1 GM Tablet PO SCH ×3 (09:03→17:05)
--- NOTE | 2018-02-01 10:35 | P.PN ---
Subjective Interval history: walking around unit, has no complaints. Remains a fluid restriction. Denies any pain, no nausea, no vomiting, diarrhea. Eating well. Physical Exam Vital signs: Vital Signs 01/31/18 17:47 02/01/18 05:43 Temperature 97.8 F 97.9 F Pulse Rate 73 68 Respiratory Rate 17 17 Blood Pressure 138/65 118/59 L Pulse Oximetry 97 97 Intake & Output 01/31/18 02/01/18 02/01/18 18:59 06:59 18:59 Intake Total 2400 / 2400 600 / 600 Balance 2400 / 2400 600 / 600 Intake: Oral 2400 / 2400 600 / 600 Other: # Voids 4 Narrative: GENERAL: Well-nourished, well-developed, female in no acute distress. SKIN: Warm and dry. HEAD: Atraumatic. Normocephalic. EYES: Pupils equal and round. No scleral icterus. No injection or drainage. ENT: No nasal bleeding or discharge. Mucous membranes pink and moist. NECK: Trachea midline. CARDIOVASCULAR: Regular rate and rhythm. RESPIRATORY: No accessory muscle use. Clear to auscultation. Breath sounds equal bilaterally. GASTROINTESTINAL: Abdomen soft, non-tender, nondistended. + Bowel sounds in all quadrants. MUSCULOSKELETAL: Extremities without clubbing, cyanosis, or edema. No obvious deformities. NEUROLOGICAL: Awake and alert. No obvious cranial nerve deficits. Motor grossly within normal limits. Pressured speech. Results - Labs CBC & Chem 7: 01/31/18 06:47 Laboratory Results - last 24 hr 01/31/18 02/01/18 09:45 07:18 Osmolality 261 L Urine Osmolality 103 L Assessment and Plan - Assessment (1) Hyponatremia Code(s): E87.1 - Hypo-osmolality and hyponatremia Status: Acute (2) Bipolar 1 disorder Code(s): F31.9 - Bipolar disorder, unspecified Status: Acute (3) Hypertension Code(s): I10 - Essential (primary) hypertension Status: Acute (4) Chest pain Code(s): R07.9 - Chest pain, unspecified Status: Acute - Plan Assessment/Plan 67-year-old female with past medical history significant for bipolar disorder, panic attacks, pancreatitis, HTN, HLD, and "leaky valves" who presented to the emergency department on 01/25 under [place] act due to altered mental status, paranoia, and suicidal ideation according to . Patient was admitted and treated for hyponatremia, sodium levels improved, psych consult placed for further evaluation. Patient now admitted to inpatient medical psychiatry unit, [facility] consulted to assist with ongoing medical management of hyponatremia. Bipolar disorder -Treatment plan per psychiatry-on Seroquel and Depakote. Psych following Depakote levels as well as ammonia, reviewed, normal. -CT of the head negative, UA negative Hyponatremia, mild 127 initially then trending down. Reviewed previous med records, prior hx of hyponatremia, etiology unclear. Possibly chronic, endorses increase oral intake prior to admission. Hypokalemia, resolved -Continue fluid restriction with 800 mL's per day -NA improving, 124 -Continue with sodium tabs 1 g 3 times daily. -Hold lisinopril due to potential side effect of SIADH -Continue to follow sodium levels for improvement -urine osmolality 103, serum osmolality 261 -BMP in a.m. Hypertension Hyperlipidemia -Continue Norvasc, propranolol, and statin. Chest pain Shortness of breath -Patient with past medical history of leaky valves along with HTN in HLD -EKG with SR, troponin negative. QT interval 351. -no cardiac complaints Hx asthma -continue PRN albuterol for SOB Shoulder pain -Tylenol as needed, likely arthritis DVT prophylaxis-ambulation
--- NOTE | 2018-02-01 16:14 | P.PNPSY ---
Subjective Chief Complaint: Aleksandra Remarks: Patient was seen and case discussed with nursing. Patient remains grandiose with various bizarre delusions. 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 We discussed her past and her family. She is getting along well with the roommate. Tolerating medications well. 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
--- NOTE | 2018-02-02 08:13 | P.PN ---
Subjective Interval history: Follow-up visit for hyponatremia. Patient is seen and examined in her room resting in bed, appears to be in no acute distress. She denies any fevers, chills, nausea, vomiting or diarrhea. She voices no acute concerns or complaints this morning. Physical Exam Vital signs: Vital Signs 02/01/18 16:55 02/02/18 07:01 Temperature 36.8 C 35.9 C L Pulse Rate 73 72 Respiratory Rate 18 18 Blood Pressure 138/82 150/69 H Pulse Oximetry 97 Intake & Output 02/01/18 02/02/18 02/02/18 18:59 06:59 18:59 Intake Total 960 / 960 Balance 960 / 960 Intake: Oral 960 / 960 Narrative: GENERAL: Well-nourished, well-developed, female in no acute distress. SKIN: Warm and dry. HEAD: Atraumatic. Normocephalic. EYES: Pupils equal and round. No scleral icterus or drainage. ENT: No nasal bleeding or discharge. Mucous membranes pink and moist. NECK: Trachea midline. CARDIOVASCULAR: Regular rate and rhythm. RESPIRATORY: No accessory muscle use. Clear to auscultation. Breath sounds equal bilaterally. GASTROINTESTINAL: Abdomen soft, non-tender, nondistended. + Bowel sounds in all quadrants. MUSCULOSKELETAL: Extremities without clubbing, cyanosis, or edema. No obvious deformities. NEUROLOGICAL: Awake and alert. No obvious cranial nerve deficits. Motor grossly within normal limits. Pressured speech. Results - Labs CBC & Chem 7: 02/02/18 07:30 Laboratory Results - last 24 hr 02/01/18 07:18 Osmolality 261 L Assessment and Plan - Assessment (1) Hyponatremia Code(s): E87.1 - Hypo-osmolality and hyponatremia Status: Acute (2) Bipolar 1 disorder Code(s): F31.9 - Bipolar disorder, unspecified Status: Acute (3) Hypertension Code(s): I10 - Essential (primary) hypertension Status: Acute (4) Chest pain Code(s): R07.9 - Chest pain, unspecified Status: Acute - Plan 67-year-old female with past medical history significant for bipolar disorder, panic attacks, pancreatitis, HTN, HLD, and "leaky valves" who presented to the emergency department on 01/25 under [place] act due to altered mental status, paranoia, and suicidal ideation according to . Patient was admitted and treated for hyponatremia, sodium levels improved, psych consult placed for further evaluation. Patient now admitted to inpatient medical psychiatry unit, [facility] consulted to assist with ongoing medical management of hyponatremia. Bipolar disorder -Treatment plan per psychiatry-on Seroquel and Depakote. Psych following Depakote levels as well as ammonia, reviewed, normal. -CT of the head negative, UA negative Hyponatremia, mild 127 initially then trending down. Reviewed previous med records, prior hx of hyponatremia, etiology unclear. Possibly chronic, endorses increase oral intake prior to admission. Hypokalemia, resolved -Continue fluid restriction with 800 mL's per day -NA improving, 124-->126 -Continue with sodium tabs 1 g 3 times daily. -Psychiatric medications also possibly contributing to hyponatremia, continue supplemental sodium. -Hold lisinopril due to potential side effect of SIADH -urine osmolality 103, serum osmolality 261 Hypertension Hyperlipidemia -Continue Norvasc, propranolol, and statin. Chest pain Shortness of breath -Patient with past medical history of leaky valves along with HTN in HLD -EKG with SR, troponin negative. QT interval 351. -no cardiac complaints Hx asthma -continue PRN albuterol for SOB Shoulder pain -Tylenol as needed, likely arthritis DVT prophylaxis-ambulation Discussed with patient that she will need to follow-up with her PCP and follow- up sodium levels several days after discharge. She verbalized understanding, also discussed with RN. Discussed Condition With: Discussed with patient, RN, Discharge Planning: Pending psych clearance.
[2018-02-02 08:18] LABS: Anion Gap 10 meq/L (5-15); Blood Urea Nitrogen 8 mg/dL (7-18); Calcium 9.2 mg/dL (8.5-10.1); Chloride 90 meq/L (98-107); Glomerular Filtration Rate Greater Than 89 mL/min (>89); Glucose,Random 106 mg/dL (74-106); Potassium 3.9 meq/L (3.5-5.1); Sodium 126 meq/L (136-145)
--- NOTE | 2018-02-02 08:29 | P.PNPSY ---
Subjective Chief Complaint: Aleksandra Remarks: Patient seen and examined with nurse. Chart reviewed. 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 She also has been hoarding diapers under her bed per staff report. Case discussed with mid-level provider from the hospitalist service. On my examination today, the patient does remain somewhat grandiose. She continues to believe that her is a candidate for president. She denies any SI or HI. Denies any AVH. We discuss the matter of the diapers, and patient says that this was the wet mix operator's doing, not the patient's. Denies any side effects from medications. No acute physical complaints. Agreeable to discharge home with home health care, noting that she already has several of our staff lined up to work for her. Vital Signs Temp Pulse Resp BP Pulse Ox 02/02/18 07:01 96.6 F L 72 18 150/69 H 02/01/18 16:55 98.2 F 73 18 138/82 97 Laboratory Results - last 24 hr 02/02/18 07:30 Sodium 126 L Potassium 3.9 Chloride 90 L Carbon Dioxide 26.0 Anion Gap 10 BUN 8 Creatinine 0.50 Estimated GFR Greater than 89 Random Glucose 106 Calcium 9.2 Labs reviewed. Sodium improved. Depakote level therapeutic. Ammonia level not elevated. Review of Systems All other systems reviewed negative except as stated in HPI Mental Status Examination Appearance: Appropriate Consciousness: Alert Orientation: Person, Place (At least) Motor Activity: Other (No abnormal motor movements noted) Speech: Unremarkable Language: Adequate Fund of Knowledge: Adequate Attention and Concentration: Easily distracted (Improving) Memory: Unremarkable Mood: Manic (Continues to improve) Affect: Other (Stabilizing) Thought Process & Associations: Loose associations (More focused today) Thought Content: Delusional Hallucination Type: None Delusion Type: Other (Grandiose) Suicidal Ideation: No Suicidal Plan: No Suicidal Intention: No Homicidal Ideation: No Homicidal Plan: No Homicidal Intention: No Insight: Poor Judgment: Poor Assessment and Plan - Assessment (1) Bipolar affective disorder, currently manic, severe, with psychotic features Code(s): F31.2 - Bipolar disorder, current episode manic severe with psychotic features Status: Acute - Plan Plan: Titrate Seroquel to 100/150 mg for additional mood stabilization. Continue Depakote as ordered. Hospitalist input appreciated. Continue to monitor on the medical psychiatric unit. Continue other medications and care as ordered. Justification for Continued Inpatient Stay: Medication changes. Impairment in reality construction. High risk for decompensation in less restrictive environment. Discharge Planning: Pending psychiatric stabilization. Hopeful for discharge by the middle of the week Request Healthcare Surrogate/Guardian Advocate?: Yes
[2018-02-02] MEDS: Sodium Chloride 1 GM Tablet PO SCH ×3 (10:43→17:23)
[2018-02-02] MEDS: QUEtiapine 100 MG Tablet PO SCH (10:44)
[2018-02-02] MEDS: amLODIPine 10 MG Tablet PO SCH (10:44)
[2018-02-02] MEDS: Divalproex 250 MG DR Tablet PO SCH ×2 (10:44→20:31)
[2018-02-02] MEDS: Folic Acid 1 MG Tablet PO SCH (10:44)
[2018-02-02] MEDS: Acetaminophen 325 MG Tablet PO PRN (11:10)
[2018-02-02] MEDS: Melatonin 5 MG Tablet PO PRN (20:30)
[2018-02-02] MEDS ORDERED: QUEtiapine 100 MG Tablet PO SCH (21:00)
[2018-02-03 06:00] VITALS: BP 145/64; PULSE 74; RESP 16; TEMP 97.8; O2SAT 98
[2018-02-03] MEDS: Folic Acid 1 MG Tablet PO SCH (09:44)
[2018-02-03] MEDS: Divalproex 250 MG DR Tablet PO SCH (09:44)
[2018-02-03] MEDS: QUEtiapine 100 MG Tablet PO SCH (09:44)
[2018-02-03] MEDS: Sodium Chloride 1 GM Tablet PO SCH ×2 (09:44→13:31)
[2018-02-03] MEDS: amLODIPine 10 MG Tablet PO SCH (09:44)
--- NOTE | 2018-02-03 11:10 | P.PN ---
Subjective Interval history: Follow-up visit hyponatremia, HTN. Patient seen and examined today. Reports he is doing well. States that she does not drink a lot of water now. States that she is always thirsty when she is at home and would drink more than 2-3 liters of fluids every day. States it has been constant thirst. States that she is feeling a lot better now. Denies pain and discomfort. Denies SOB/ dyspnea. Denies chest pain, palpitations, headaches, dizziness. Denies fevers, chills, n/v/d. Denies hematuria, dysuria. Physical Exam Vital signs: Vital Signs 02/02/18 18:00 02/03/18 05:59 Temperature 98.2 F 97.8 F Pulse Rate 90 74 Respiratory Rate 17 16 Blood Pressure 123/59 L 145/64 H Pulse Oximetry 100 98 Intake & Output 02/02/18 02/03/18 02/03/18 18:59 06:59 18:59 Intake Total 1200 / 1200 240 / 240 Output Total 2 / 2 2 / 2 Balance 1198 / 1198 238 / 238 Intake: Oral 1080 / 1080 240 / 240 Oral Supplement 120 / 120 Output: Urine Other: # Voids 4 Narrative: GENERAL: This is a well-nourished, well-developed patient, in no apparent distress. SKIN: Warm and dry HEENT: Normocephalic. Pupils equal round and reactive. Nose without bleeding. Airway patent. NECK: Trachea midline. No JVD. Supple. CARDIOVASCULAR: Regular rate and rhythm without murmurs, gallops, or rubs. RESPIRATORY: Clear to auscultation. Breath sounds equal bilaterally. No wheezes , rales, or rhonchi. GASTROINTESTINAL: Abdomen soft, non-tender, nondistended. Bowel Sounds normoactive x4. MUSCULOSKELETAL: Extremities without clubbing, cyanosis, or edema. NEUROLOGICAL: Awake and alert. Oriented to place, person. No focal neuro deficit. Moves all extremities. Normal speech. Results - Labs CBC & Chem 7: 02/02/18 07:30 Assessment and Plan - Assessment (1) Hyponatremia Code(s): E87.1 - Hypo-osmolality and hyponatremia Status: Acute (2) Bipolar 1 disorder Code(s): F31.9 - Bipolar disorder, unspecified Status: Acute (3) Hypertension Code(s): I10 - Essential (primary) hypertension Status: Acute (4) Chest pain Code(s): R07.9 - Chest pain, unspecified Status: Acute - Plan 67-year-old female with past medical history significant for bipolar disorder, panic attacks, pancreatitis, HTN, HLD, and "leaky valves" who presented to the emergency department on 01/25 under Cook act due to altered mental status, paranoia, and suicidal ideation according to . Patient was admitted and treated for hyponatremia, sodium levels improved, psych consult placed for further evaluation. Patient now admitted to inpatient medical psychiatry unit, [facility] consulted to assist with ongoing medical management of hyponatremia. Bipolar disorder -Treatment plan per psychiatry-on Seroquel and Depakote. -Depakote levels as well as ammonia, with a normal. 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 Hypokalemia, resolved -Continue fluid restriction with 800 mL's per day -NA improving, 124-->126 -Continue with sodium tabs 1 g 3 times daily. -Psychiatric medications also possibly contributing to hyponatremia, continue supplemental sodium. -Hold lisinopril due to potential side effect of SIADH -urine osmolality 103, serum osmolality 261 -May need to follow-up outpatient with PCP to recheck sodium levels. Continue with sodium tabs for now. Check TSH. Check cortisol level may be done in outpatient setting. -Advice to fluid restrict especially in the outpatient setting. Verbalized understanding. Hypertension Hyperlipidemia -Continue Norvasc, propranolol, and statin. Chest pain Shortness of breath -Patient with past medical history of leaky valves along with HTN in HLD -EKG with SR, troponin negative. QT interval 351. -no cardiac complaints Hx asthma -continue PRN albuterol for SOB Shoulder pain -Tylenol as needed, likely arthritis DVT prophylaxis ambulation Stable from Hospitalist standpoint. Clear for discharge. Follow-up with PCP and outpatient to check sodium levels, TSH, cortisol level Code Status: Full code Discussed Condition With: Patient, nurse, Dr. Desai Discharge Planning: DC disposition by primary team. Clear for discharge on [facility] standpoint.
--- NOTE | 2018-02-03 11:39 | P.DSPSY ---
Psychiatry Discharge Summary Inpatient Psychiatric care?: Yes Advance Directives: No Mental Health Advance Directive: No Health Care Proxy: No - Admission Admission Date: January 26, 2018 17:34 - Admission Diagnosis (1) Bipolar affective disorder, currently manic, severe, with psychotic features Code(s): F31.2 - Bipolar disorder, current episode manic severe with psychotic features Brief History: From my consultation note of 01/26: Ms. Pollard is a 67-year-old female with a history of bipolar disorder who presents under a Cook act by [facility] alleging that the patient is paranoid and unable to care for herself. The patient has been admitted to the medical floor for management of hyponatremia. Reviewing the electronic medical record, I see no previous psychiatric contact within our system. Patient seen and examined. Chart reviewed. Case discussed with nursing staff who reports that the patient has been quite grandiose, offering to buy items for the staff including vehicles. A sitter is at the bedside. On my examination today, the patient presents with elevated mood and expansive affect. She remains upbeat even when discussing grave matters such as her grandson's recent suicide. Speech is rapid and rambling. Mood is described as "100%!" She reports that she is sleeping well. She is somewhat distractible with some loosening of associations. She denies audiovisual hallucinations. Grandiose delusions are noted. She tells me that her is a candidate for president of [employer]. She offers me a job in the [employer] once he gets elected. She denies any suicidal or homicidal ideation but seems unreliable to contract for safety. Remainder of the psychiatric ROS is negative. No acute physical complaints. Mental status testing: Registration is 3 out of 3 and recall is 2 out of 3 at 5 minutes. She is oriented to person, place and date. She gives WORLD backwards as DLORW. She is able to name 2 items and repeat a phrase. Past psychiatric history: The patient reports a history of "a little bipolar." She reports that she saw her female psychiatrist last week although she cannot recall the name. [Collateral from indicates that the patient has in fact been seeing a male psychiatrist, Dr. Bey.] Patient reports that she was Cook acted 15 years ago but otherwise denies any history of inpatient psychiatric treatment. She denies a history of suicide attempts. Family history: The patient denies any family history of mental illness or suicide. Chemical dependency history: The patient reports that she is a social drinker. She says that she has reduced even this level of alcohol consumption after a bout of pancreatitis a few months ago. Social history: The patient is originally from [place] by way of [place]. Her father and grandfather were reportedly surgeons. She lives with her Tres who suffers from MS and Parkinson's. She has 4 children. She has a college degree in geology. 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 Denies any legal history. Denies any access to guns or firearms. She is a Christianity. With patient's permission, spoke with her Tres Burch at [phone]. Mr. Burch notes that 3 weeks ago, patient left for a doctor's appointment and ended up driving all the way to [place] where she ran out of gas. She was reportedly psychiatrically hospitalized in [place] Ching and reportedly disclosed some suicidal ideation while treated there. suspects that precipitant for this manic episode was grandson's suicide about 3 weeks ago. He notes that the patient has a history of bipolar disorder and recently started seeing Dr. Bey. Before that had been seeing Olvin Mcgarry at [facility]. notes Dr. Bey started patient on Vraylar. She took 3 doses, perhaps some benefit but not long-lasting. He notes that she had been doing well with whatever medication Olvin was prescribing for her. is supportive of psychiatric hospitalization at this time. I called over to [facility] to get med list. Patient was most recently prescribed Seroquel 300 mg at bedtime. She has also been on Risperdal in the past. On my examination today, 01/27: Patient seen and examined with nurse, Snow. Chart reviewed. Case discussed with nursing staff. Patient remains manic. She did not sleep much if at all overnight. On my examination today, patient remains ebullient and expansive. Her speech is rapid and a little difficult to interrupt. Mood is "fantastic!" She is distractible and disinhibited. She proposes marriage to this provider apropos of nothing. She remains quite grandiose. She has offered all of the staff jobs in her employ for thousands of dollars per week. She offers me a job for $5,000/week. She denies SI/HI but seems unreliable to contract for safety. She denies audiovisual hallucinations. She complains of pain in her chest and left arm. I have ordered stat cardiac enzymes and discussed the matter with mid-level provider from the hospitalist service who will follow up on this issue. She does not appear to be in any physical distress. No other physical complaints. Spoke with patient's /healthcare surrogate at the number listed above. We discuss patient's legal status. We discuss pharmacotherapeutic options for management of patient's alison. We agree upon initiation of Depakote with possible introduction of Seroquel so long as the patient can be cleared by the hospitalist from cardiac standpoint. Atarax will be available as needed for anxiety and melatonin as needed for sleep. R/B/A for all medications reviewed with . Tobacco Use In Past 30 Days: No How Often Do You Have a Drink Containing Alcohol: 4 or more times a week Hospital Course: Patient was admitted to a locked, inpatient psychiatric unit. A general medical consultation was obtained. Appropriate precautions were in place throughout patient's hospital stay. Patient was seen and examined on the unit by psychiatry and also visited by counselor. Psychotropic medications were adjusted. Patient tolerated medication changes well without side effects. Patient had improvement in presenting psychiatric symptomatology during the course of her hospital stay. There was no evidence of any suicidality or homicidality on the inpatient unit. Patient's behavior improved with the benefit of psychopharmacologic treatment. On the day of discharge: Patient seen and examined with nurse. Chart reviewed. Case discussed with nursing staff. No behavioral issues noted overnight. Case discussed in treatment team. Counselor reports that she has reached out the patient's who is reportedly comfortable with accepting the patient home. Case discussed with mid -level provider from the hospitalist service who reports that the patient is medically cleared for discharge today. On my examination today, the patient is eager for discharge from the inpatient psychiatric unit today. She denies any suicidal or homicidal ideation, intent or plan. She contracts for safety. Mood has stabilized nicely, and she has no severe manic or hypomanic symptoms at this point. No depressive symptoms. She denies any audiovisual hallucinations. I can elicit no delusional material. She denies any side effects from medications. No physical complaints. Suicide and violence risk assessment on day of discharge both suggest lower imminent risk from mental illness, and the patient's level of function is adequate for outpatient care. Patient has maximized benefit from this inpatient psychiatric hospital stay and will be discharged home today with home health care. Psychiatric follow-up as arranged by counselor. Patient is also to follow up with primary care. I have emphasized the need for the patient to follow up on hyponatremia issue and to restrict intake of excessive free water. I have counseled the patient to return to the psychiatric emergency room for any concerning symptoms as part of a general safety plan. - Discharge Discharge Date: 02/03/18 - Discharge Diagnosis (1) Bipolar affective, manic, part remis Code(s): F31.73 - Bipolar disorder, in partial remission, most recent episode manic Status: Acute Discharge Disposition: Home with home health care - Discharge Instructions Discharge Diet: Regular Diet Activities You Can Perform: Weight Bearing As Tolerat - Discharge Time > 30 minutes Mental Status Examination Appearance: Appropriate Consciousness: Alert Orientation: x4 Motor Activity: Normal gait, Other (No hand tremor, no dystonia, no dyskinesia, no other motor abnormalities noted.) Speech: Unremarkable Language: Adequate Fund of Knowledge: Adequate Attention and Concentration: Adequate Memory: Unremarkable Mood: Appropriate Affect: Appropriate Thought Process & Associations: Intact, Logical, Linear Thought Content: Appropriate Hallucination Type: None Delusion Type: None Suicidal Ideation: No Suicidal Plan: No Suicidal Intention: No Homicidal Ideation: No Homicidal Plan: No Homicidal Intention: No Mental Status Exam Remarks: Insight and judgment are fair. Discharge/Advance Care Plan - Results Vital Signs: Last Vital Signs Temp 97.8 F 02/03/18 05:59 Pulse 74 02/03/18 05:59 Resp 16 02/03/18 05:59 BP 145/64 H 02/03/18 05:59 Pulse Ox 98 02/03/18 05:59 Lab Results: Laboratory Results Hemoglobin A1c 5.2 % (4.3-6.0) 01/26/18 21:08 Triglycerides 331 mg/dL (42-150) H 01/26/18 21:08 Cholesterol 174 mg/dL (120-200) 01/26/18 21:08 LDL Cholesterol, Calc 63 mg/dL (0-99) 01/26/18 21:08 HDL Cholesterol 45.3 mg/dL (40.0-60.0) 01/26/18 21:08 Valproic Acid 58 mcg/mL (50-100) 01/31/18 06:47 Summary of Procedures: None done Pending Results: None - Medications Number of antipsychotic medications at discharge: 1 - Discharge Care Plan Goals to Promote Your Health: * To prevent worsening of your condition and complications * To maintain your health at the optimal level Directions to Meet Your Goals: Take your medications as prescribed Follow your dietary instruction Follow activity as directed Keep your appointments as scheduled Take your immunizations and boosters as scheduled If your symptoms worsen call your PCP, if no PCP go to Urgent Care Center or Emergency Room For 13/01 questions related to your inpatient stay or results of tests pending at discharge, please contact Dr. Tres Desai MD at Smoking is Dangerous to Your Health. Avoid second hand smoking
--- NOTE | 2018-02-03 11:40 | P.DCO ---
- Home Health Nursing Order: Signs/symptoms of disease process, Nursing assessment with vital signs Instructions: Home psych nursing - Music Education Director Order: To evaluate: Living conditions/environment, Support services Order: To provide: Long range planning, Community services - Certification I have seen patient Mary Pollard on 02/03/18. My clinical findings support the need for the requested home health care services because: Need for psychosocial assistance I certify that my clinical findings support that this patient is homebound because: Need for psychosocial assistance
== END 2018-02-03 15:30 | disposition home health service (06) ==
LOC: H4EA 17:34
PROVIDERS: ADMIT Psychiatry & Neurology Psychiatry; ATTEND Psychiatry & Neurology Psychiatry

== ENCOUNTER 2018-04-25 05:08 | Inpatient (IN) ==
[2018-04-25] MEDS ORDERED: Metoprolol Tartrate 50 MG Tablet PO ONE (06:27)
--- NOTE | 2018-04-25 06:32 | ED ---
HPI General Chief Complaint: Psychiatric Symptoms Stated Complaint: psych eval/obpd Time Seen by Provider: 04/25/18 06:20 Source: patient and police Mode of arrival: ambulatory Limitations: no limitations History of Present Illness HPI Narrative: 67-year-old white female presents emergency department under Cook act by PD. According the Cook act a good Baptist had noticed the patient walking down the road in the middle of night and appeared to be confused. The good Baptist took the patient to a convenience store where they had called police. The patient seemed to be disorganized according to the Cook act. She was carrying a cordless phone and attempted to make a phone call. The patient was rambling making no sense. She had stated that she was going to a car dealership. The patient's is admitted in the ICU at [facility]. Related Data Home Medications Medication Instructions Recorded Confirmed amlodipine 10 mg PO DAILY 01/27/18 01/27/18 aspirin 81 mg PO DAILY 01/27/18 01/27/18 atorvastatin 40 mg PO DAILY 01/27/18 01/27/18 folic acid 1 mg PO DAILY 01/27/18 01/27/18 omeprazole 40 mg PO DAILY 01/27/18 01/27/18 propranolol 20 mg PO BID 01/27/18 01/27/18 Allergies Allergy/AdvReac Type Severity Reaction Status Date / Time No Known Allergies Uncoded 05/01/11 10:50 Review of Systems ROS Unobtainable ROS Unobtainable: unobtainable due to mental condition PMFSH Medical History Medical History Bipolar disorder (Acute) HLD (hyperlipidemia) (Acute) History of frequent urinary tract infections (Acute) Hypertension (Acute) Leaky heart valve (Acute) Pancreatitis (Acute) Surgical History Surgical History Hx of breast lump removal (Acute) Social History Social History Substance History: No History of Abuse Second Hand Smoke Exposure: No Smoking Status: Former smoker Tobacco Type: Cigarettes How Often Do You Have a Drink Containing Alcohol: Never Recent Travel in [facility] within the Last 8 Weeks: No Recent Out of Country Travel within the Last 8 Weeks: No Immunization History Tetanus Immunization: <5 Years Exam Narrative Exam Narrative: GENERAL: Well-nourished, well-developed patient. SKIN: Warm and dry. HEAD: Normocephalic and atraumatic. EYES: No scleral icterus. No injection or drainage. ENT: No nasal drainage noted. Mucous membranes pink. Airway patent. NECK: Supple, trachea midline. Moves head freely without obvious discomfort. CARDIOVASCULAR: Regular tachycardic rate and rhythm with murmur at left sternal border RESPIRATORY: Breath sounds equal bilaterally. No accessory muscle use. GASTROINTESTINAL: Abdomen soft, non-tender, nondistended. EXTREMITIES: No cyanosis or edema. BACK: Nontender without obvious deformity. No CVA tenderness. NEURO: Patient is alert and oriented. no sensorimotor deficits. Nonfocal. Normal speech. PSYCH: Patient is pleasantly confused. Patient rambles on about her suspect artist, law suits, and going to purchase a car at the car dealership. Course Initial Documented Vital Signs Temperature 98.1 F 04/25/18 05:47 Pulse Rate 110 H 04/25/18 05:47 Respiratory Rate 16 04/25/18 05:47 Blood Pressure 199/94 H 04/25/18 05:47 Pulse Oximetry 99 04/25/18 05:47 Last Documented Vital Signs Temperature 98.1 F 04/25/18 05:47 Pulse Rate 105 H 04/25/18 06:24 Respiratory Rate 18 04/25/18 06:24 Blood Pressure 195/84 H 04/25/18 06:24 Pulse Oximetry 96 04/25/18 06:24 Medical Decision Making [facility] Narrative Medical decision making narrative: We will obtain routine laboratory testing for medical clearance. Patient is given metoprolol 50 mg p.o., amlodipine 5 mg p.o. Patient is mildly tachycardic and hypertensive. Patient I suspect has not been compliant with her home medications to the fact that her is an inpatient at [facility]. We will follow her blood pressure and heart rate and check laboratory testing to medically clear this patient. The patient' s care will be transferred to the [facility]. Medical Screen Exam Complete: No Emergency Medical Condition: Yes Differential Diagnosis Differential Diagnosis: MDM: High Differential diagnoses: Schizophrenia, schizoaffective disorder, bipolar, anxiety, depression, adjustment reaction, mood disorder NOS, ODD, depressive disorder NOS, dementia, dementia with agitation, psychosis NOS, substance induced mood disorder, infection,electrolyte abnormality, malingering. Mental health screening discussed with the patient. Psychiatric screen ordered. Discharge Plan Discharge Disposition Patient Disposition: 30 Still Patient Discharge Condition Condition: Stable Physicians Team ED Provider: Teetee Coyne ED Midlevel Provider: Pino Hurst Primary Care Provider: UNKNOWN, Rxs /Orders / Referrals /Forms Prescriptions: No Action atorvastatin 40 mg Tablet 40 mg PO DAILY RF: 0 omeprazole 40 mg Capsule,Delayed Release(Dr/Ec) 40 mg PO DAILY RF: 0 folic acid 1 mg Tablet 1 mg PO DAILY RF: 0 aspirin 81 mg Tablet,Delayed Release (Dr/Ec) 81 mg PO DAILY RF: 0 amlodipine 10 mg Tablet 10 mg PO DAILY RF: 0 propranolol 20 mg Tablet 20 mg PO BID RF: 0 Discharge Interventions Interventions: Vital Signs Last Done: 04/25/18 06:24 Status ED Status: With Doctor
[2018-04-25] MEDS ORDERED: amLODIPine 5 MG Tablet PO ONE (06:33)
[2018-04-25 07:51] LABS: Baso % (Auto) 0.7 % (0.0-2.0); Eos % (Auto) 0.3 % (0.0-4.0); Hematocrit 30.2 % (35.0-46.0); Hemoglobin 10.8 gm/dL (11.6-15.3); Lymph # (Auto) 1.1 th/mm3 (1.0-4.8); Lymph % (Auto) 16.7 % (9.0-44.0); Mean Corpuscular HGB Conc 35.6 % (32.0-36.0); Mean Corpuscular Hemoglobin 31.4 pg (27.0-34.0); Mean Corpuscular Volume 88.1 fL (80.0-100.0); Mean Platelet Volume 6.7 fL (7.0-11.0); Mono # (Auto) 0.7 th/mm3 (0.0-0.9); Mono % (Auto) 9.9 % (0.0-8.0); Neut # (Auto) 4.9 th/mm3 (1.8-7.7); Neut % (Auto) 72.4 % (16.0-70.0); Platelet Count 321 th/mm3 (150-450); Red Blood Count 3.43 mil/mm3 (4.00-5.30); Red Cell Distribution Width 13.4 % (11.6-17.2); White Blood Count 6.8 th/mm3 (4.0-11.0)
[2018-04-25 07:52] LABS: Amorphous Sediment,Urine Occasional /hpf; Bacteria,Urine Occasional /hpf; Bilirubin,Urine Negative (Negative); Clarity,Urine Clear (Clear); Color,Urine Yellow (Yellw/Straw); Glucose,Urine (UA) Negative (Negative); Leukocyte Esterase,Urine Small (Negative); Nitrite,Urine Negative (Negative); Specific Gravity,Urine 1.006 (1.002-1.035); Squamous Epithelial Cell,Urine 2 /hpf (0-5)
[2018-04-25 07:57] LABS: Amphetamine Screen,Urine Neg (Neg); Barbiturate Screen,Urine Neg (Neg); Cannabinoid Screen,Urine Neg (Neg); Cocaine Screen,Urine Neg (Neg)
[2018-04-25 08:07] LABS: Opiate Screen,Urine Neg (Neg)
[2018-04-25 08:29] LABS: Alanine Aminotransferase 49 U/L (10-53); Albumin 3.5 g/dL (3.4-5.0); Alkaline Phosphatase 74 U/L (45-117); Anion Gap 9 meq/L (5-15); Aspartate Aminotransferase 67 U/L (15-37); Blood Urea Nitrogen 6 mg/dL (7-18); Calcium 8.4 mg/dL (8.5-10.1); Carbon Dioxide 27.1 meq/L (21.0-32.0); Chloride 86 meq/L (98-107); Glomerular Filtration Rate Greater Than 89 mL/min (>89); Glucose,Random 130 mg/dL (74-106); Magnesium 1.8 mg/dL (1.5-2.5); Potassium 3.3 meq/L (3.5-5.1); Total Protein 6.9 g/dL (6.4-8.2)
[2018-04-25 08:33] LABS: Sodium 122 meq/L (136-145)
[2018-04-25] MEDS ORDERED: Sod Chloride 0.9% Inj 1,000 ML IV.SIG ONE (08:33)
[2018-04-25] MEDS ORDERED: amLODIPine 5 MG Tablet PO SCH (09:00)
[2018-04-25 10:37] LABS: Anion Gap 9 meq/L (5-15); Blood Urea Nitrogen 5 mg/dL (7-18); Calcium 8.6 mg/dL (8.5-10.1); Carbon Dioxide 25.4 meq/L (21.0-32.0); Chloride 91 meq/L (98-107); Glomerular Filtration Rate Greater Than 89 mL/min (>89); Glucose,Random 113 mg/dL (74-106); Potassium 3.5 meq/L (3.5-5.1); Sodium 125 meq/L (136-145)
[2018-04-25] MEDS ORDERED: Aluminum/Magnesium/Simethacone Susp 30 ML UDC PO PRN (21:29)
[2018-04-25] MEDS ORDERED: LORazepam 0.5 MG Tablet PO PRN (21:30)
[2018-04-26] MEDS ORDERED: Sod Chloride 0.9% Inj 1,000 ML IV.CONT SCH (08:00)
[2018-04-26] MEDS: amLODIPine 10 MG Tablet PO SCH (09:32)
[2018-04-26] MEDS: Folic Acid 1 MG Tablet PO SCH (09:33)
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
[2018-04-26 11:07] LABS: Calcium 9.9 mg/dL (8.5-10.1); Carbon Dioxide 29.3 meq/L (21.0-32.0); Potassium 3.3 meq/L (3.5-5.1)
[2018-04-26 11:10] LABS: Chol/HDL Ratio 3.7 Ratio; HDL Cholesterol 48.3 mg/dL (40.0-60.0)
--- NOTE | 2018-04-26 12:26 | P.CONIM ---
History of Present Illness Service: [facility] Consult date: 04/26/18 Reason for Consult: medical management Primary Care Provider: UNKNOWN Chief Complaint: electrolytes imbalance History of Present Illness: Patient is a 67-year-old female with past medical history of hypertension, asthma, leaky valve, hyperlipidemia and hyponatremia who was admitted under Cook act after being found walking down the street by herself at night. She was picked up by janice Cortez who later called police. Patient was reportedly nonsensical and talking on a cordless phone that was not functional given that is not a cell phone. Patient was admitted to the Psychiatric unit for Psychiatric evaluation and management. Medicine team was consulted for electrolytes imbalance and medical management. Patient seen and examined sitting in the day room, very talkative and expressing herself. Patient denies any pain, chest pain or shortness of breath. patient stated she need to go back to the [facility] where she belongs, stated her is ther because of the Parkinsons. 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 She also mentioned that Dr Miller checked her heart going through her arm, however did not find anything. patient have an old dressing on her radial arm and ecchymosis. Patient denies any chest pain or shortness of breath. Patient denies any abdominal pain, nausea, vomiting, diarrhea or constipation. Patient stated eating well and drinking well.Patient denies any fever or chills. Review of Systems All other systems reviewed negative except as stated in HPI PMFSH - History History Provided By: Patient, Medical Record - Medical History Medical History: Medical History (Last Reviewed 04/26/18 @ 12:24 by BETZY Fregoso) Bipolar disorder HLD (hyperlipidemia) History of frequent urinary tract infections Hypertension Leaky heart valve Pancreatitis - Surgical History Surgical History: Surgical History (Last Reviewed 04/26/18 @ 12:24 by BETZY Fregoso) Hx of breast lump removal - Social History I have reviewed the patient's Social History: Yes - Tobacco History Second Hand Smoke Exposure: No Tobacco Use In Past 30 Days: No Smoking Status: Former smoker Tobacco Type: Cigarettes - Alcohol History How Often Do You Have a Drink Containing Alcohol: Never - Substance Use History Substance History: No History of Abuse - Travel History Recent Travel in the [place] Within the Last 8 Weeks: No Recent Travel Out of the Country Within the Last 8 Weeks: No - Immunization History Tetanus Immunization: <5 Years Hx Influenza Vaccine This Season: No Medications and Allergies Active Medications: Active Medications Acetaminophen (Tylenol) 650 mg PO Q4H PRN PRN Reason: PAIN 1-5 OR TEMP > 101 Al Hydrox/Mg Hydrox/Simethicone (Mag-Al Plus Susp Liq) 30 ml PO Q6H PRN PRN Reason: DYSPEPSIA Al Hydroxide/Mg Hydroxide (Milk Of Magnesia Liq) 30 ml PO Q24H PRN PRN Reason: CONSTIPATION Amlodipine Besylate (Norvasc) 10 mg PO DAILY [facility] Last Admin: 04/26/18 09:32 Dose: 10 mg Aspirin (Aspirin Chew) 81 mg PO DAILY [facility] Last Admin: 04/26/18 09:32 Dose: 81 mg Atorvastatin Calcium (Lipitor) 40 mg PO DAILY [facility] Last Admin: 04/26/18 09:33 Dose: 40 mg Clonidine HCl (Catapres) 0.1 mg PO Q6H PRN PRN Reason: SBP>160, DBP>90 Folic Acid (Folic Acid) 1 mg PO DAILY [facility] Last Admin: 04/26/18 09:33 Dose: 1 mg Sodium Chloride (Ns Inj) 1,000 mls @ 100 mls/hr IV.CONT .Q10H [facility] Lorazepam (Ativan) 0.5 mg PO Q12H PRN PRN Reason: MODERATE TO SEVERE ANXIETY Lorazepam (Ativan Inj) 0.5 mg IM Q12H PRN PRN Reason: MODERATE TO SEVERE ANXIETY Pantoprazole Sodium (Protonix) 40 mg PO DAILY [facility] Last Admin: 04/26/18 09:33 Dose: 40 mg Potassium Chloride (K-Dur) 20 meq PO ONCE ONE Stop: 04/26/18 12:31 Potassium Chloride (Klor-Con 10) 10 meq PO DAILY [facility] Propranolol HCl (Inderal) 40 mg PO BID [facility] Allergies Allergy/AdvReac Type Severity Reaction Status Date / Time No Known Allergies Allergy Verified 04/25/18 17:57 Home Medications Medication Instructions Recorded Confirmed Type amlodipine 10 mg PO DAILY 01/27/18 04/25/18 History aspirin 81 mg PO DAILY 01/27/18 04/25/18 History atorvastatin 40 mg PO DAILY 01/27/18 04/25/18 History folic acid 1 mg PO DAILY 01/27/18 04/25/18 History omeprazole 40 mg PO DAILY 01/27/18 04/25/18 History propranolol 20 mg PO BID 01/27/18 04/25/18 History Exam Vital signs: Vital Signs 04/25/18 18:18 04/25/18 20:26 04/25/18 21:35 Temperature 98.3 F 97.6 F Pulse Rate 74 90 88 Respiratory Rate 18 18 20 Blood Pressure 180/72 H 122/65 164/81 H Pulse Oximetry 100 98 100 04/26/18 06:00 Temperature 98.8 F Pulse Rate 102 H Respiratory Rate 18 Blood Pressure 164/93 H Pulse Oximetry 99 Intake & Output 04/25/18 04/26/18 04/26/18 19:59 06:59 18:59 Intake Total Balance Weight Intake: IV NS Inj 1,000 ML @ Wide Open IV. SIG BOLUS ONE Rx#:[id number] Other: Weight On Admission Narrative: GENERAL: well developed, well nourished, female, sitting in the day room, in no acute distress SKIN: Warm and dry. right radial dressed dry and intact, ecchymosis noted HEAD: Atraumatic. Normocephalic. EYES: Pupils equal and round. No scleral icterus. No injection or drainage. ENT: No nasal bleeding or discharge. Mucous membranes pink and moist. NECK: Trachea midline. No JVD. CARDIOVASCULAR: Regular rate and rhythm. RESPIRATORY: No accessory muscle use. Clear to auscultation. Breath sounds equal bilaterally. GASTROINTESTINAL: Abdomen soft, non-tender, nondistended. Hepatic and splenic margins not palpable. MUSCULOSKELETAL: Extremities without clubbing, cyanosis, or edema. No obvious deformities. NEUROLOGICAL: Awake and alert x 3. No obvious cranial nerve deficits. Motor grossly within normal limits. Five out of 5 muscle strength in the arms and legs. Normal speech. PSYCHIATRIC: pleasant mood and affect; insight and judgment poor Results - Labs CBC & Chem 7: 04/25/18 07:42 04/26/18 09:18 Labs: Laboratory Results - last 24 hr 04/26/18 04/26/18 09:18 09:18 Sodium 132 L Potassium 3.3 L Chloride 92 L Carbon Dioxide 29.3 Anion Gap 11 BUN 10 Creatinine 0.78 Estimated GFR 74 L Random Glucose 133 H Osmolality 277 Calcium 9.9 D Triglycerides 179 H Cholesterol 179 LDL Cholesterol, Calc 95 HDL Cholesterol 48.3 Cholesterol/HDL Ratio 3.70 Assessment and Plan - Assessment (1) Acute hyponatremia Code(s): E87.1 - Hypo-osmolality and hyponatremia Status: Acute (2) Altered mental status Code(s): R41.82 - Altered mental status, unspecified Status: Acute (3) Bipolar 1 disorder Code(s): F31.9 - Bipolar disorder, unspecified Status: Acute (4) Hypertension Code(s): I10 - Essential (primary) hypertension Status: Acute (5) Bipolar affective disorder, currently manic, severe, with psychotic features Code(s): F31.2 - Bipolar disorder, current episode manic severe with psychotic features Status: Acute (6) Psychosis not due to substance or known physiological condition Code(s): F29 - Unspecified psychosis not due to a substance or known physiological condition Status: Acute - Plan Patient is a 67-year-old female with past medical history of hypertension, asthma, leaky valve, hyperlipidemia and hyponatremia who was admitted under Cook act after being found walking down the street by herself at night. She was picked up by janice Cortez who later called police. Patient was reportedly nonsensical and talking on a cordless phone that was not functional given that is not a cell phone. Patient was admitted to the Psychiatric unit for Psychiatric evaluation and management. Medicine team was consulted for electrolytes imbalance and medical management. Electrolytes Imbalance Acute hyponatremia Acute Hypokalemia Hypo-osmolality and hyponatremia , Acute likely due to dehydration/ medication reaction -Na level 122 on admission -recheck BMP today, Na level improved to 132 -monitor BMP, replace as needed Altered mental status Altered mental status, unspecified , Acute -likely due to electrolytes imbalance/hyponatremia -Urinalysis negative -improving, monitor mental status, monitor electrolytes Hypertension Hx Leaky Valve Hyperlipidemia Essential (primary) hypertension, Acute BP elevated -increase Propranolol with hold parameters, continue amlodipine -add clonidine for prn SBP > 160 or DBP > 90 -continue home medications, Lovastatin and aspirin -monitor VS, BP & HR -pls obtain medical records from [facility] for the claimed heart procedure Bipolar affective disorder, currently manic, severe, with psychotic features Psychosis not due to substance or known physiological condition continue current medications Management by Psychiatry Team DVT Prophylaxis; patient ambulatory Code Status: full code Discussed Condition With: patient and nurse
[2018-04-26 13:02] LABS: Hemoglobin A1c 5.3 % (4.3-6.0)
[2018-04-26] MEDS: Propranolol 40 MG Tablet PO SCH ×2 (15:25→20:55)
--- NOTE | 2018-04-26 19:12 | P.CONNP ---
History of Present Illness Service: Nephrology Consult date: 04/26/18 Requesting Physician: Javier Giles Reason for Consult: Hyponatremia Primary Care Provider: UNKNOWN Chief Complaint: electrolytes imbalance History of Present Illness: Patient is 67-year-old female with history of bipolar disorder who was found confused and has history of altered mental status, sodium was low Sodium 122 improved to 125 and now 132, potassium was low Patient is feeling better admits to drinking a lot of fluids Review of Systems Constitutional: Denies anorexia, Denies body ache(s), Denies chills, Denies daytime sleepiness, Denies excessive sweating, Denies fatigue, Denies fever(s), Denies headache(s), Denies increased appetite, Denies lack of energy, Denies malaise, Denies night sweats, Denies weakness, Denies weight gain, Denies weight loss, Denies other Eyes: Denies blind spots, Denies blurry vision, Denies bulging eyes, Denies change in vision, Denies double vision, Denies discharge, Denies dry eyes, Denies floaters, Denies irritation, Denies itchy eyes, Denies loss of vision, Denies pain, Denies requires corrective lenses, Denies sensitivity to light, Denies other Ears, Nose, Mouth, and Throat: Denies abnormal hearing, Denies bleeding gums, Denies bad breath, Denies change in voice, Denies dental pain, Denies difficulty swallowing, Denies dizziness, Denies dry mouth, Denies ear discharge , Denies ear pain, Denies facial pain, Denies headache(s), Denies hearing loss, Denies hoarseness, Denies lip swelling, Denies nosebleed, Denies mouth lesions, Denies mouth pain, Denies nasal congestion, Denies nasal discharge, Denies nasal obstruction, Denies nasal trauma, Denies neck lump, Denies neck pain, Denies nose pain, Denies pain with swallowing, Denies poor balance, Denies post nasal drip, Denies ringing in the ears, Denies sinus pain, Denies sinus pressure , Denies sore throat, Denies throat swelling, Denies tongue swelling, Denies other Cardiovascular: Denies chest pain, Denies chest pain at rest, Denies chest pain with activity, Denies excessive sweating, Denies fainting, Denies fast heart rate, Denies foot swelling, Denies generalized swelling, Denies irregular heart rhythm, Denies leg pain with activity, Denies leg sores, Denies leg swelling, Denies lightheadedness, Denies radiating jaw, neck or arm pain, Denies rapid, pounding, or irregular heartbeat, Denies shortness of breath, Denies shortness of breath with activity, Denies shortness of breath when lying down, Denies shortness of breath causing sudden awakening, Denies slow heart rate, Denies other Respiratory: Denies change in phlegm color, Denies chest congestion, Denies cough, Denies coughing up blood, Denies excessive phlegm production, Denies pain on inspiration, Denies pain with cough, Denies shortness of breath, Denies shortness of breath with activity, Denies snoring, Denies stridor, Denies wheezing, Denies other Neurologic: Reports weakness Psychiatric: Reports anxiety, Reports behavioral changes, Reports change in appetite, Reports depression PMFSH - History History Provided By: Patient, Medical Record - Medical History Medical History: Medical History (Last Reviewed 04/26/18 @ 19:09 by Leonarda Goodman MD) Bipolar disorder HLD (hyperlipidemia) History of frequent urinary tract infections Hypertension Leaky heart valve Pancreatitis - Surgical History Surgical History: Surgical History (Last Reviewed 04/26/18 @ 19:09 by Leonarda Goodman MD) Hx of breast lump removal - Social History I have reviewed the patient's Social History: Yes - Tobacco History Second Hand Smoke Exposure: No Tobacco Use In Past 30 Days: No Smoking Status: Former smoker Tobacco Type: Cigarettes - Alcohol History How Often Do You Have a Drink Containing Alcohol: Never - Substance Use History Substance History: No History of Abuse - Travel History Recent Travel in the [facility] Within the Last 8 Weeks: No Recent Travel Out of the Country Within the Last 8 Weeks: No - Immunization History Tetanus Immunization: <5 Years Hx Influenza Vaccine This Season: No Medications and Allergies Active Medications: Active Medications Acetaminophen (Tylenol) 650 mg PO Q4H PRN PRN Reason: PAIN 1-5 OR TEMP > 101 Al Hydrox/Mg Hydrox/Simethicone (Mag-Al Plus Susp Liq) 30 ml PO Q6H PRN PRN Reason: DYSPEPSIA Al Hydroxide/Mg Hydroxide (Milk Of Magnesia Liq) 30 ml PO Q24H PRN PRN Reason: CONSTIPATION Amlodipine Besylate (Norvasc) 10 mg PO DAILY [facility] Last Admin: 04/26/18 09:32 Dose: 10 mg Aspirin (Aspirin Chew) 81 mg PO DAILY [facility] Last Admin: 04/26/18 09:32 Dose: 81 mg Atorvastatin Calcium (Lipitor) 40 mg PO DAILY [facility] Last Admin: 04/26/18 09:33 Dose: 40 mg Clonidine HCl (Catapres) 0.1 mg PO Q6H PRN PRN Reason: SBP>160, DBP>90 Folic Acid (Folic Acid) 1 mg PO DAILY [facility] Last Admin: 04/26/18 09:33 Dose: 1 mg Sodium Chloride (Ns Inj) 1,000 mls @ 100 mls/hr IV.CONT .Q10H [facility] Lorazepam (Ativan) 0.5 mg PO Q12H PRN PRN Reason: MODERATE TO SEVERE ANXIETY Lorazepam (Ativan Inj) 0.5 mg IM Q12H PRN PRN Reason: MODERATE TO SEVERE ANXIETY Pantoprazole Sodium (Protonix) 40 mg PO DAILY [facility] Last Admin: 04/26/18 09:33 Dose: 40 mg Potassium Chloride (Klor-Con 10) 10 meq PO DAILY [facility] Propranolol HCl (Inderal) 40 mg PO BID [facility] Last Admin: 04/26/18 15:25 Dose: 40 mg Allergies Allergy/AdvReac Type Severity Reaction Status Date / Time No Known Allergies Allergy Verified 04/25/18 17:57 Home Medications Medication Instructions Recorded Confirmed Type amlodipine 10 mg PO DAILY 01/27/18 04/25/18 History aspirin 81 mg PO DAILY 01/27/18 04/25/18 History atorvastatin 40 mg PO DAILY 01/27/18 04/25/18 History folic acid 1 mg PO DAILY 01/27/18 04/25/18 History omeprazole 40 mg PO DAILY 01/27/18 04/25/18 History propranolol 20 mg PO BID 01/27/18 04/25/18 History Exam Vital signs: Vital Signs 04/25/18 20:26 04/25/18 21:35 04/26/18 06:00 Temperature 97.6 F 98.8 F Pulse Rate 90 88 102 H Respiratory Rate 18 20 18 Blood Pressure 122/65 164/81 H 164/93 H Pulse Oximetry 98 100 99 04/26/18 17:55 Temperature 98.6 F Pulse Rate 82 Respiratory Rate 18 Blood Pressure 169/74 H Pulse Oximetry 97 Intake & Output 04/26/18 04/26/18 04/27/18 06:59 18:59 06:59 Intake Total 960 / 960 Balance 960 / 960 Weight Intake: Oral 960 / 960 Other: # Voids 4 Weight On Admission Narrative: GENERAL: Well-nourished, well-developed patient. SKIN: Warm and dry. HEAD: Normocephalic. EYES: No scleral icterus. No injection or drainage. NECK: Supple, trachea midline. No JVD or lymphadenopathy. CARDIOVASCULAR: Regular rate and rhythm without murmurs, gallops, or rubs. RESPIRATORY: Breath sounds equal bilaterally. No accessory muscle use. GASTROINTESTINAL: Abdomen soft, non-tender, nondistended. EXTREMITIES: As above NEUROLOGICAL: Awake, alert, and oriented x 3. Non-focal. Results - Lab Results 04/25/18 07:42 04/26/18 09:18 Most recent lab results Calcium 9.9 mg/dL (8.5-10.1) D 04/26/18 09:18 Magnesium 1.8 mg/dL (1.5-2.5) 04/25/18 07:42 Assessment and Plan - Assessment (1) Hyponatremia Code(s): E87.1 - Hypo-osmolality and hyponatremia Status: Acute (2) Altered mental status Code(s): R41.82 - Altered mental status, unspecified Status: Acute (3) Bipolar 1 disorder Code(s): F31.9 - Bipolar disorder, unspecified Status: Acute (4) Hypertension Code(s): I10 - Essential (primary) hypertension Status: Acute - Plan Patient appears to be dehydrated and may have been drinking hypoosmolar fluids Leading to drop in the sodium which has been corrected Potassium is being replaced Continue supportive care Patient is told to eat proper meals And drink water in moderation Will follow as needed
[2018-04-27] MEDS: Propranolol 40 MG Tablet PO SCH ×2 (08:18→20:48)
[2018-04-27] MEDS: Folic Acid 1 MG Tablet PO SCH (08:19)
[2018-04-27] MEDS: amLODIPine 10 MG Tablet PO SCH (08:19)
[2018-04-27 09:31] LABS: Baso # (Auto) 0.1 th/mm3 (0.0-0.2); Baso % (Auto) 0.9 % (0.0-2.0); Eos # (Auto) 0.2 th/mm3 (0.0-0.4); Eos % (Auto) 2.6 % (0.0-4.0); Hematocrit 33.7 % (35.0-46.0); Hemoglobin 11.7 gm/dL (11.6-15.3); Lymph # (Auto) 2.3 th/mm3 (1.0-4.8); Mean Corpuscular HGB Conc 34.6 % (32.0-36.0); Mean Corpuscular Hemoglobin 31.1 pg (27.0-34.0); Mean Corpuscular Volume 89.8 fL (80.0-100.0); Mean Platelet Volume 7.1 fL (7.0-11.0); Mono # (Auto) 0.9 th/mm3 (0.0-0.9); Mono % (Auto) 11.6 % (0.0-8.0); Neut # (Auto) 4.4 th/mm3 (1.8-7.7); Neut % (Auto) 55.9 % (16.0-70.0); Platelet Count 464 th/mm3 (150-450); Red Blood Count 3.76 mil/mm3 (4.00-5.30); Red Cell Distribution Width 13.4 % (11.6-17.2); White Blood Count 7.8 th/mm3 (4.0-11.0)
[2018-04-27 10:04] LABS: Anion Gap 7 meq/L (5-15); Blood Urea Nitrogen 7 mg/dL (7-18); Calcium 9.4 mg/dL (8.5-10.1); Carbon Dioxide 29.9 meq/L (21.0-32.0); Chloride 90 meq/L (98-107); Glomerular Filtration Rate Greater Than 89 mL/min (>89); Glucose,Random 105 mg/dL (74-106); Sodium 127 meq/L (136-145)
--- NOTE | 2018-04-27 10:55 | P.PNPSY ---
Subjective Chief Complaint: acute psychosis Remarks: Patient initially admitted by Dr. Anand, his H&P reviewed and agreed with. Dr. Anand has done first opinion petition supporting [facility] act. I agree. Patient meets criteria for involuntary psychiatric hospitalization. I also feel patient does not have capacity to make decisions concerning her care thus I will ask for health care surrogate and guardian advocate. I have also finished the initial psychiatric admission template orders. Patient was hospitalized here in January of this year under Dr. Desai at that time she was discharged on Depakote and Seroquel. He also appears she has been seen sometime in the past by Dr. Floyd through [facility] act. We need to get verification of the above the patient now states she is not taking any of those medications because it slowed her down. Patient seen on the unit today with RN. She is alert fairly well oriented to person and place with rapid pressured speech she is markedly tangential circumstantial and delusional. Though it is verify that her is critically ill and in the intensive care unit at [facility]. At this time we will attempt to reach other family members who may take the responsibility for being healthcare surrogate so we can restart this lady on her medications. We will also have nephrology and the [facility] service involved. Placement may become problematic. We will recheck Depakote blood level over tomorrow morning. His sodium level drawn this morning was back down to 127 we will recheck that tomorrow also Review of Systems unobtainable due to mental condition Mental Status Examination Appearance: Disheveled Consciousness: Vigilant Orientation: Person, Place, Date/Time (Somewhat confused) Motor Activity: Normal gait Speech: Pressured, Rapid Language: Perseveration Fund of Knowledge: Inadequate Attention and Concentration: Easily distracted Memory: Impaired Mood: Angry, Irritable Affect: Irritable Thought Process & Associations: Loose associations, Disorganized Thought Content: Racing thoughts, Delusional Hallucination Type: Auditory (Vague may be responding to internal stimuli) Delusion Type: Bizarre Suicidal Ideation: No Suicidal Plan: No Suicidal Intention: No Homicidal Ideation: No Homicidal Plan: No Homicidal Intention: No Insight: Poor Judgment: Poor Assessment and Plan - Assessment (1) Bipolar affective disorder, currently manic, severe, with psychotic features Code(s): F31.2 - Bipolar disorder, current episode manic severe with psychotic features Status: Acute - Plan Plan: Patient remains quite manic delusional psychotic, with no insight. We will be requesting health care surrogate and guardian advocate. Consultations have been noted and agreed with with nephrology and hospitalist. Attempt to reach patient's family for further information and assistance Justification for Continued Inpatient Stay: At this time patient would decompensate a place to the lower level of care Discharge Planning: To be determined Request Healthcare Surrogate/Guardian Advocate?: Yes
[2018-04-27] MEDS ORDERED: guaiFENesin/Dextromethorphan 200 MG/20 MG 10 ML UDC PO PRN (13:33)
[2018-04-27] MEDS ORDERED: Sod Chloride 0.9% Inj 1,000 ML IV.CONT SCH (13:35)
--- NOTE | 2018-04-27 13:46 | P.PNIM ---
Subjective Interval history: Follow-up hypertension, asthma, leaky valve, hyperlipidemia, hyponatremia, and psychosis. Patient seen and examined, lying in bed, c?o of congestion on the chest and nasal. Stated she has Asthma, have nasal spray at home but dont need to use any inhaler. Patient denies any headache or dizziness, denies any chest pain of SOB , deneies any fever or chills. Denies any abdominal pain, nausea, vomiting, diarrhea or constipation. Physical Exam Vital signs: Vital Signs 04/26/18 17:55 04/27/18 05:35 Temperature 98.6 F 97.8 F Pulse Rate 82 70 Respiratory Rate 18 18 Blood Pressure 169/74 H 143/71 H Pulse Oximetry 97 99 Intake & Output 04/26/18 04/27/18 04/27/18 18:59 06:59 18:59 Intake Total 960 / 960 240 / 240 Balance 960 / 960 240 / 240 Weight 73.3 kg Intake: Oral 960 / 960 240 / 240 Other: # Voids 4 1 Narrative: GENERAL: well developed, well nourished, descent female, in no acute distress SKIN: Warm and dry. HEAD: Atraumatic. Normocephalic. EYES: Pupils equal and round. No scleral icterus. No injection or drainage. ENT: No nasal bleeding or discharge. Mucous membranes pink and moist. NECK: Trachea midline. No JVD. CARDIOVASCULAR: Regular rate and rhythm. RESPIRATORY: No accessory muscle use. Clear to auscultation. Breath sounds equal bilaterally. GASTROINTESTINAL: Abdomen soft, non-tender, nondistended. Hepatic and splenic margins not palpable. MUSCULOSKELETAL: Extremities without clubbing, cyanosis, or edema. No obvious deformities. NEUROLOGICAL: Awake and alert and oriented x 3. No obvious cranial nerve deficits. Motor grossly within normal limits. Five out of 5 muscle strength in the arms and legs. Normal speech. PSYCHIATRIC: Appropriate mood and affect; insight and judgment poor G Results - Labs CBC & Chem 7: 04/27/18 08:54 04/27/18 08:54 Laboratory Results - last 24 hr 04/26/18 04/26/18 04/27/18 09:18 16:00 08:54 WBC RBC Hgb Hct MCV MCH MCHC RDW Plt Count MPV Neut % (Auto) Lymph % (Auto) Warrick % (Auto) Eos % (Auto) Baso % (Auto) Neut # (Auto) Lymph # (Auto) Warrick # (Auto) Eos # (Auto) Baso # (Auto) WBC Differential Differential Comment Sodium 127 L Potassium 4.0 Chloride 90 L Carbon Dioxide 29.9 Anion Gap 7 BUN 7 Creatinine 0.64 Estimated GFR Greater than 89 Random Glucose 105 Hemoglobin A1c 5.3 Calcium 9.4 Urine Osmolality 107 L 04/27/18 08:54 WBC 7.8 RBC 3.76 L Hgb 11.7 Hct 33.7 L MCV 89.8 MCH 31.1 MCHC 34.6 RDW 13.4 Plt Count 464 H D MPV 7.1 Neut % (Auto) 55.9 Lymph % (Auto) 29.0 Warrick % (Auto) 11.6 H Eos % (Auto) 2.6 Baso % (Auto) 0.9 Neut # (Auto) 4.4 Lymph # (Auto) 2.3 Warrick # (Auto) 0.9 Eos # (Auto) 0.2 Baso # (Auto) 0.1 WBC Differential . Differential Comment Auto diff final Sodium Potassium Chloride Carbon Dioxide Anion Gap BUN Creatinine Estimated GFR Random Glucose Hemoglobin A1c Calcium Urine Osmolality Assessment and Plan - Assessment (1) Acute hyponatremia Code(s): E87.1 - Hypo-osmolality and hyponatremia Status: Acute (2) Altered mental status Code(s): R41.82 - Altered mental status, unspecified Status: Acute (3) Bipolar 1 disorder Code(s): F31.9 - Bipolar disorder, unspecified Status: Acute (4) Hypertension Code(s): I10 - Essential (primary) hypertension Status: Acute (5) Bipolar affective disorder, currently manic, severe, with psychotic features Code(s): F31.2 - Bipolar disorder, current episode manic severe with psychotic features Status: Acute (6) Psychosis not due to substance or known physiological condition Code(s): F29 - Unspecified psychosis not due to a substance or known physiological condition Status: Acute - Plan Patient is a 67-year-old female with past medical history of hypertension, asthma, leaky valve, hyperlipidemia and hyponatremia who was admitted under [facility] act after being found walking down the street by herself at night. She was picked up by [facility] who later called police. Patient was reportedly nonsensical and talking on a cordless phone that was not functional given that is not a cell phone. Patient was admitted to the Psychiatric unit for Psychiatric evaluation and management. Medicine team was consulted for electrolytes imbalance and medical management. Electrolytes Imbalance Acute hyponatremia Acute Hypokalemia Hypo-osmolality and hyponatremia , Acute likely due to dehydration/ medication reaction/hypo-osmolality due to increased drinking -Na level 122 on admission -recheck BMP today, Na level improved to 132 on 04/26/18, decreased again today at 127 -patient admitted was drinking a lot of water -start on Na tab -start IVF NS -monitor BMP, replace as needed Altered mental status Altered mental status, unspecified , Acute -likely due to electrolytes imbalance/hyponatremia -Urinalysis negative -improving, monitor mental status, monitor electrolytes Hypertension Hx Leaky Valve Hyperlipidemia Essential (primary) hypertension, Acute BP elevated -increase Propranolol with hold parameters, continue amlodipine -add clonidine for prn SBP > 160 or DBP > 90 -continue home medications, Lovastatin and aspirin -monitor VS, BP & HR -pls obtain medical records from [facility] for the claimed heart procedure Bipolar affective disorder, currently manic, severe, with psychotic features Psychosis not due to substance or known physiological condition continue current medications Management by Psychiatry Team Hx Asthma chest congestion No SOB, no Wheezes -add fluticasone spray -add decongestant -monitor respiratory status DVT Prophylaxis; patient ambulatory Code Status: full code Discussed Condition With: philippe and nurse
--- NOTE | 2018-04-27 14:21 | P.TTN ---
- Patient Problems Problems: 1. Discharge planning 2. Medication compliance 3. Knowledge deficit 4. Lack of coping skills - Progress Toward Goals Provider Present: Dr. Erin Brown Provider Input: 04/27/18: Pt is newly admitted over weekend, she has hx of previous [facility] admission to psychiatry. MD to see pt today. Group Spec/RT/OT/MAYS Present: Rakan Briones OT Group Spec/RT/OT/MAYS Input: 04/27/18: Pt is newly re-admitted, she has not attended groups as yet, currently unable to tolerate. - Discharge Plan 04/27/18: Pt newly admitted, pt meeting in-pt criteria per OTRMD to see pt today. - Documentation Teaching Recipient: Patient
[2018-04-27] MEDS: Sodium Chloride 1 GM Tablet PO SCH (14:40)
[2018-04-28] MEDS: Folic Acid 1 MG Tablet PO SCH (08:08)
[2018-04-28] MEDS: Propranolol 40 MG Tablet PO SCH ×2 (08:08→20:44)
[2018-04-28] MEDS: amLODIPine 10 MG Tablet PO SCH (08:10)
[2018-04-28 10:50] LABS: Albumin 3.9 g/dL (3.4-5.0); Anion Gap 12 meq/L (5-15); Aspartate Aminotransferase 28 U/L (15-37); Blood Urea Nitrogen 9 mg/dL (7-18); Calcium 9.6 mg/dL (8.5-10.1); Carbon Dioxide 28.3 meq/L (21.0-32.0); Chloride 93 meq/L (98-107); Glomerular Filtration Rate Greater Than 89 mL/min (>89); Glucose,Random 106 mg/dL (74-106); Sodium 133 meq/L (136-145)
[2018-04-28 10:53] LABS: Alanine Aminotransferase 50 U/L (10-53); Alkaline Phosphatase 84 U/L (45-117); Total Protein 7.9 g/dL (6.4-8.2)
[2018-04-28] MEDS: Sodium Chloride 1 GM Tablet PO SCH (11:49)
[2018-04-28] MEDS: Acetaminophen 325 MG Tablet PO PRN (13:42)
--- NOTE | 2018-04-28 15:36 | P.PNPSY ---
Subjective Chief Complaint: acute psychosis Remarks: Patient seen in her room with nurse Gali, patient continues with rapid pressured speech she is quite intrusive and intense. She was riding letters that are markedly disorganized and bright green magic marker. Example of which is in the chart for perusal. She acknowledges being bipolar. But is quite disorganized in her discussions related to her family relationship with her with his serious illness. Upon review of past medical records patient has been prescribed Depakote and Seroquel in the past most recently past hospitalization in January. We will start patient on Depakote 250 mg twice daily and Seroquel 100 mg twice daily Review of Systems All other systems reviewed negative except as stated in HPI Mental Status Examination Appearance: Disheveled Consciousness: Vigilant Orientation: Person, Place, Date/Time (Somewhat confused) Motor Activity: Normal gait Speech: Pressured, Rapid Language: Perseveration Fund of Knowledge: Inadequate Attention and Concentration: Easily distracted Memory: Impaired Mood: Angry, Irritable Affect: Irritable Thought Process & Associations: Loose associations, Disorganized Thought Content: Racing thoughts, Delusional Hallucination Type: Auditory (Vague may be responding to internal stimuli) Delusion Type: Bizarre Suicidal Ideation: No Suicidal Plan: No Suicidal Intention: No Homicidal Ideation: No Homicidal Plan: No Homicidal Intention: No Insight: Poor Judgment: Poor Assessment and Plan - Assessment (1) Bipolar affective disorder, currently manic, severe, with psychotic features Code(s): F31.2 - Bipolar disorder, current episode manic severe with psychotic features Status: Acute - Plan Plan: Patient continues quite manic psychotic and delusional. She medication adjustments above Justification for Continued Inpatient Stay: At this time patient would decompensate if placed in a lower level of care Discharge Planning: To be determined perhaps back in her home Request Healthcare Surrogate/Guardian Advocate?: Yes
--- NOTE | 2018-04-28 17:23 | P.PNIM ---
Subjective Interval history: Follow-up hypertension, asthma, leaky valve, hyperlipidemia, hyponatremia, and psychosis. Pt seen and examined sitting in the chain in the day room. Patient she is feeling good. Denies any pain or SOB. Patient stated her sodium is better today. Pt stated she have some short of breath just because her is dying. Stated he is in [facility] with Parkinson's. patient denies any headache or dizziness, denies any abdominal pain, nausea, vomiting, diarrhea or constipation. Stated her congestion is better. Physical Exam Vital signs: Vital Signs 04/27/18 17:25 04/28/18 05:34 Temperature 98.6 F 97.7 F Pulse Rate 72 72 Respiratory Rate 18 18 Blood Pressure 144/74 H 141/67 H Pulse Oximetry 96 97 Intake & Output 04/27/18 04/28/18 04/28/18 18:59 06:59 18:59 Intake Total 1200 / 1200 340 / 340 480 / 480 Output Total 0 / 0 Balance 1200 / 1200 340 / 340 480 / 480 Intake: Oral 1200 / 1200 240 / 240 480 / 480 Oral Supplement 100 / 100 Output: Urine/Stool Mix 0 / 0 Other: # Voids 3 4 3 Narrative: GENERAL: well developed, well nourished, descent female, in no acute distress SKIN: Warm and dry. HEAD: Atraumatic. Normocephalic. EYES: Pupils equal and round. No scleral icterus. No injection or drainage. ENT: No nasal bleeding or discharge. Mucous membranes pink and moist. NECK: Trachea midline. No JVD. CARDIOVASCULAR: Regular rate and rhythm. RESPIRATORY: No accessory muscle use. Clear to auscultation. Breath sounds equal bilaterally. GASTROINTESTINAL: Abdomen soft, non-tender, nondistended. Hepatic and splenic margins not palpable. MUSCULOSKELETAL: Extremities without clubbing, cyanosis, or edema. No obvious deformities. NEUROLOGICAL: Awake and alert and oriented x 3. No obvious cranial nerve deficits. Motor grossly within normal limits. Five out of 5 muscle strength in the arms and legs. Normal speech. PSYCHIATRIC: Appropriate mood and affect; insight and judgment poor Results - Labs CBC & Chem 7: 04/27/18 08:54 04/28/18 09:10 Laboratory Results - last 24 hr 04/28/18 09:10 Sodium 133 L Potassium 4.0 Chloride 93 L Carbon Dioxide 28.3 Anion Gap 12 BUN 9 Creatinine 0.65 Estimated GFR Greater than 89 Random Glucose 106 Calcium 9.6 Total Bilirubin 0.3 AST 28 ALT 50 Alkaline Phosphatase 84 Total Protein 7.9 D Albumin 3.9 Valproic Acid Less than 3 L Assessment and Plan - Assessment (1) Acute hyponatremia Code(s): E87.1 - Hypo-osmolality and hyponatremia Status: Acute (2) Altered mental status Code(s): R41.82 - Altered mental status, unspecified Status: Acute (3) Bipolar 1 disorder Code(s): F31.9 - Bipolar disorder, unspecified Status: Acute (4) Hypertension Code(s): I10 - Essential (primary) hypertension Status: Acute (5) Bipolar affective disorder, currently manic, severe, with psychotic features Code(s): F31.2 - Bipolar disorder, current episode manic severe with psychotic features Status: Acute (6) Psychosis not due to substance or known physiological condition Code(s): F29 - Unspecified psychosis not due to a substance or known physiological condition Status: Acute - Plan Patient is a 67-year-old female with past medical history of hypertension, asthma, leaky valve, hyperlipidemia and hyponatremia who was admitted under [place] act after being found walking down the street by herself at night. She was picked up by janice Druze who later called police. Patient was reportedly nonsensical and talking on a cordless phone that was not functional given that is not a cell phone. Patient was admitted to the Psychiatric unit for Psychiatric evaluation and management. Medicine team was consulted for electrolytes imbalance and medical management. Electrolytes Imbalance Acute hyponatremia Acute Hypokalemia Hypo-osmolality and hyponatremia , Acute likely due to dehydration/ medication reaction/hypo-osmolality due to increased drinking -Na level 122 on admission, improved to 133 on 04/28/18 -patient admitted was drinking a lot of water -continue Na tab replacement -s/p IVF NS bolus -monitor BMP, replace as needed Altered mental status Altered mental status, unspecified , Acute -likely due to electrolytes imbalance/hyponatremia -Urinalysis negative -improving, monitor mental status, monitor electrolytes Hypertension Hx Leaky Valve Hyperlipidemia Essential (primary) hypertension, Acute BP improving -increase Propranolol with hold parameters, continue amlodipine -add clonidine for prn SBP > 160 or DBP > 90 -continue home medications, Lovastatin and aspirin -monitor VS, BP & HR -pls obtain medical records from [facility] for the claimed heart procedure Bipolar affective disorder, currently manic, severe, with psychotic features Psychosis not due to substance or known physiological condition continue current medications Management by Psychiatry Team Hx Asthma chest congestion No SOB, no Wheezes -continue fluticasone spray -continue decongestant -monitor respiratory status DVT Prophylaxis; patient ambulatory Code Status: full code Discussed Condition With: patient, and nurse
--- NOTE | 2018-04-28 19:58 | CT ---
EXAM DATE: 04/28/2018 7:55 PM EST AGE/SEX: 67 years / Female INDICATIONS: bending over patient lost her balance and hit her head on the floor CLINICAL DATA: This is the patient's initial encounter. Patient reports that signs and symptoms have been present for 1 day and indicates a pain score of 2/10. MEDICAL/SURGICAL HISTORY: Hypertension. Pancreatitis. heart valve None. RADIATION DOSE: 56.35 CTDI (mGy) COMPARISON: [facility] [place] HEAD W/O CONTRAST, 01/25/2018. . TECHNIQUE: CT of the head without contrast. Using automated exposure control and adjustment of the mA and/or kV according to patient size, radiation dose was kept as low as reasonably achievable to ob tain optimal diagnostic quality images. DICOM format image data is available electronically for revi ew and comparison. FINDINGS: There is mild prominence of the CSF spaces, ventricles and cisterns. Patchy periventricular white mat ter disease is stable. There are no signs of intracranial hemorrhage, acute infarct, or mass. No frac tures. CONCLUSION: 1. No acute findings. . Electronically signed by: Gianluca Chavez MD 04/28/2018 7:56 PM EST
--- NOTE | 2018-04-28 20:00 | XR ---
EXAM DATE: 04/28/2018 7:57 PM EST AGE/SEX: 67 years / Female INDICATIONS: Left shoulder pain after recent fall. CLINICAL DATA: This is the patient's initial encounter. Patient reports that signs and symptoms have been present for 1 day and indicates a pain score of 5/10. MEDICAL/SURGICAL HISTORY: . Asthma. Hypertension. Parkinson's disease. Stroke. None. COMPARISON: [facility], XR SHOULDER (MIN 4 VIEWS), LEFT, 01/06/2018. . FINDINGS: Bony structures are intact and in normal alignment. Joints are intact without dislocation or signifi cant arthropathy. Osseous density is normal. Soft tissues are unremarkable. No radiopaque foreign bodies seen. CONCLUSION: No evidence of recent bony injury. Electronically signed by: Gianluca Chavez MD 04/28/2018 7:58 PM EST
[2018-04-28] MEDS: Divalproex 250 MG ER Tablet PO SCH (20:44)
[2018-04-29] MEDS: Acetaminophen 325 MG Tablet PO PRN ×2 (01:59→08:53)
[2018-04-29] MEDS: QUEtiapine 100 MG Tablet PO SCH ×3 (07:32→20:43)
[2018-04-29] MEDS: Propranolol 40 MG Tablet PO SCH ×2 (08:53→20:43)
[2018-04-29] MEDS: Sodium Chloride 1 GM Tablet PO SCH (08:53)
[2018-04-29] MEDS: Folic Acid 1 MG Tablet PO SCH (08:53)
[2018-04-29] MEDS: amLODIPine 10 MG Tablet PO SCH (08:53)
[2018-04-29] MEDS: Divalproex 250 MG ER Tablet PO SCH ×2 (08:56→20:43)
--- NOTE | 2018-04-29 10:03 | P.PNPSY ---
Subjective Chief Complaint: acute psychosis Remarks: Patient seen and woo with nurse Shelly, chart reviewed, we have been unable to initiate psychotropics due to no consent so far. It appears patient's remains in intensive care into the hospital. In any event patient remains manic intrusive with little insight into her disease. Patient scheduled for [email or web address] tomorrow hopefully we will be able to get guardian advocate appointed who can start treating this nice lady Review of Systems All other systems reviewed negative except as stated in HPI Mental Status Examination Appearance: Disheveled Consciousness: Vigilant Orientation: Person, Place, Date/Time (Somewhat confused) Motor Activity: Normal gait Speech: Pressured, Rapid Language: Perseveration Fund of Knowledge: Inadequate Attention and Concentration: Easily distracted Memory: Impaired Mood: Angry, Irritable, Manic Affect: Irritable Thought Process & Associations: Loose associations, Disorganized Thought Content: Racing thoughts, Delusional Hallucination Type: Auditory (Vague may be responding to internal stimuli) Delusion Type: Bizarre Suicidal Ideation: No Suicidal Plan: No Suicidal Intention: No Homicidal Ideation: No Homicidal Plan: No Homicidal Intention: No Insight: Poor Judgment: Poor Assessment and Plan - Assessment (1) Bipolar affective disorder, currently manic, severe, with psychotic features Code(s): F31.2 - Bipolar disorder, current episode manic severe with psychotic features Status: Acute - Plan Plan: Patient remains manic psychotic intrusive and labile. Still low consent for medication treatment. Patient scheduled for [email or web address] tomorrow Justification for Continued Inpatient Stay: At this time patient would decompensate a place to a lower level of care Discharge Planning: Hopefully return to her own home Request Healthcare Surrogate/Guardian Advocate?: Yes
--- NOTE | 2018-04-29 15:11 | P.TTN ---
- Patient Problems Problems: 1. Discharge planning 2. Medication compliance 3. Knowledge deficit 4. Lack of coping skills - Progress Toward Goals Provider Present: Dr. Erin Brown, Dr. Adrián Perera Provider Input: 04/29/18: Dr. Brown, Family meeting planned for 04/29/18. 04/27: Pt is newly admitted over weekend, she has hx of previous [facility] admission to psychiatry. MD to see pt today. Nurse(s) Present: Brandi Nurse Input: 04/29/18: Med Compliant, sleeping 4 to 5 hours nightly, appropriate with staff. Psychiatric Counselors Present: Cooper Nair Jr., [facility], Martina Oden, [facility] Psychiatric Therapist Input: 04/29/18: Martina Counselor: Counselor will discuss discharge planning with jessica. Discharged when stable. Group Spec/RT/OT/MAYS Present: Rita Fields, GPS, Rakan Briones, OT Group Spec/RT/OT/MAYS Input: 04/29/18: Pt is plesant and cooperative when attending select group activities. Pt is hypermanic and needs some redirection. 04/27/18: Pt is newly re-admitted, she has not attended groups as yet, currently unable to tolerate. - Discharge Plan 04/29/18: Patient will be discharged when stable, Counselor will discuss discharge plan with the Patients family. 04/27/18: Pt newly admitted, pt meeting in-pt criteria per OTMD Gina to see pt today. - Documentation Scribe: Rita Fields Teaching Recipient: Patient
--- NOTE | 2018-04-29 15:20 | P.PNIM ---
Subjective Interval history: Follow-up hypertension, asthma, leaky valve, hyperlipidemia, hyponatremia, and psychosis. Patient seen and examined, sitting on the chair in the day room, stated she had a fall last night complaining of left shoulder pain states that she is okay had an x-ray and there is no fracture. Patient denies any headache or dizziness, denies any neck pain or back pain. Patient states that she only just need Tylenol for her left shoulder pain. Patient denies chest pain or shortness of breath, any abdominal pain, nausea or vomiting, diarrhea or constipation, denies any fever or chills. Nurse denies any acute concern for the patient. Physical Exam Vital signs: Vital Signs 04/28/18 17:23 04/28/18 19:10 04/28/18 19:15 Temperature 98.5 F Pulse Rate 80 70 70 Respiratory Rate 16 14 14 Blood Pressure 145/65 H 152/70 H 152/70 H Pulse Oximetry 97 97 97 04/28/18 20:37 04/28/18 21:37 04/28/18 22:37 Temperature Pulse Rate 70 60 75 Respiratory Rate 20 20 20 Blood Pressure 174/72 H 144/66 H 167/76 H Pulse Oximetry 04/29/18 02:37 04/29/18 05:57 04/29/18 05:59 Temperature 98.3 F 98.3 F Pulse Rate 69 67 67 Respiratory Rate 20 16 16 Blood Pressure 132/69 120/56 L 120/56 L Pulse Oximetry 94 L 98 98 Intake & Output 04/28/18 04/29/18 04/29/18 18:59 06:59 18:59 Intake Total 1560 / 1560 580 / 580 Balance 1560 / 1560 580 / 580 Intake: Oral 1560 / 1560 480 / 480 Oral Supplement 100 / 100 Other: # Voids 3 3 # Bowel Movements 1 Narrative: GENERAL: well developed, well nourished, descent female, in no acute distress SKIN: Warm and dry. HEAD: Atraumatic. Normocephalic. EYES: Pupils equal and round. No scleral icterus. No injection or drainage. ENT: No nasal bleeding or discharge. Mucous membranes pink and moist. NECK: Trachea midline. No JVD. CARDIOVASCULAR: Regular rate and rhythm. RESPIRATORY: No accessory muscle use. Clear to auscultation. Breath sounds equal bilaterally. GASTROINTESTINAL: Abdomen soft, non-tender, nondistended. Hepatic and splenic margins not palpable. MUSCULOSKELETAL: Extremities without clubbing, cyanosis, or edema. No obvious deformities. NEUROLOGICAL: Awake and alert and oriented x 3. No obvious cranial nerve deficits. Motor grossly within normal limits. Five out of 5 muscle strength in the arms and legs. Normal speech. PSYCHIATRIC: Appropriate mood and affect; insight and judgment poor Results - Labs CBC & Chem 7: 04/27/18 08:54 04/28/18 09:10 - Imaging Impressions Head CT 04/28/18 00:00 CONCLUSION: 1. No acute findings. . Shoulder X-Ray 04/28/18 00:00 CONCLUSION: No evidence of recent bony injury. 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 She was picked up by [facility] who later called police. Patient was reportedly nonsensical and talking on a cordless phone that was not functional given that is not a cell phone. Patient was admitted to the Psychiatric unit for Psychiatric evaluation and management. Medicine team was consulted for electrolytes imbalance and medical management. Electrolytes Imbalance Acute hyponatremia Acute Hypokalemia Hypo-osmolality and hyponatremia , Acute likely due to dehydration/ medication reaction/hypo-osmolality due to increased drinking -Na level 122 on admission, improved to 133 on 04/28/18 -patient admitted was drinking a lot of water -continue Na tab replacement -s/p IVF NS bolus -monitor BMP, replace as needed Altered mental status Altered mental status, unspecified , Acute -likely due to electrolytes imbalance/hyponatremia -Urinalysis negative -improving, monitor mental status, monitor electrolytes Hypertension Hx Leaky Valve Hyperlipidemia Essential (primary) hypertension, Acute BP improving -increase Propranolol with hold parameters, continue amlodipine -add clonidine for prn SBP > 160 or DBP > 90 -continue home medications, Lovastatin and aspirin -monitor VS, BP & HR -pls obtain medical records from [facility] for the claimed heart procedure with Dr. Miller Bipolar affective disorder, currently manic, severe, with psychotic features Psychosis not due to substance or known physiological condition continue current medications Management by Psychiatry Team Hx Asthma chest congestion No SOB, no Wheezes -continue fluticasone spray -continue decongestant -monitor respiratory status Status post fall Shoulder pain, left -Head CT negative, no acute findings -Left shoulder x-ray negative for fracture, with good active range of motion -PRN Tylenol for pain, as needed ice pack DVT Prophylaxis; patient ambulatory Code Status: Full code Discussed Condition With: Patient and nurse
[2018-04-30 07:41] LABS: Anion Gap 11 meq/L (5-15); Blood Urea Nitrogen 17 mg/dL (7-18); Calcium 9.5 mg/dL (8.5-10.1); Carbon Dioxide 25.5 meq/L (21.0-32.0); Chloride 90 meq/L (98-107); Glomerular Filtration Rate Greater Than 89 mL/min (>89); Glucose,Random 95 mg/dL (74-106); Potassium 3.6 meq/L (3.5-5.1); Sodium 126 meq/L (136-145)
[2018-04-30] MEDS: Folic Acid 1 MG Tablet PO SCH (08:47)
[2018-04-30] MEDS: Divalproex 250 MG ER Tablet PO SCH ×2 (08:48→20:19)
[2018-04-30] MEDS: Sodium Chloride 1 GM Tablet PO SCH (08:48)
[2018-04-30] MEDS: QUEtiapine 100 MG Tablet PO SCH ×2 (08:49→20:19)
[2018-04-30] MEDS: Propranolol 40 MG Tablet PO SCH ×2 (10:23→20:19)
[2018-04-30] MEDS: amLODIPine 10 MG Tablet PO SCH (10:24)
--- NOTE | 2018-04-30 13:58 | P.PNPSY ---
Subjective Chief Complaint: acute psychosis Remarks: Patient seen today in [place] [address], patient's court continued times 2-week by Steve Hammond daughter to be healthcare surrogate/guardian advocate. Patient continued with rapid pressured speech she was quite grandiose and intense and intrusive and cooperative her overall demeanor was more of pleasure and intensity. Patient Depakote level came back at less than 3. She is now showing some compliance with the Depakote. We will check a Depakote blood level over on Thursday 05/03 Review of Systems All other systems reviewed negative except as stated in HPI Mental Status Examination Appearance: Disheveled Consciousness: Vigilant Orientation: Person, Place, Date/Time (Somewhat confused) Motor Activity: Normal gait Speech: Pressured, Rapid Language: Perseveration Fund of Knowledge: Inadequate Attention and Concentration: Easily distracted Memory: Impaired Mood: Angry (Decreased today), Irritable, Manic Affect: Other (Increased range and intensity) Thought Process & Associations: Loose associations, Disorganized Thought Content: Racing thoughts, Delusional Hallucination Type: Auditory (Denies today) Delusion Type: Bizarre (Somewhat decreased) Suicidal Ideation: No Suicidal Plan: No Suicidal Intention: No Homicidal Ideation: No Homicidal Plan: No Homicidal Intention: No Insight: Poor Judgment: Poor Assessment and Plan - Assessment (1) Bipolar affective disorder, currently manic, severe, with psychotic features Code(s): F31.2 - Bipolar disorder, current episode manic severe with psychotic features Status: Acute - Plan Plan: Patient remains manic grandiose and somewhat psychotic, though she is now compliant with her medication. Patient has been retained by Steve Guamanchurch with a case continued for 2 weeks daughter to be healthcare surrogate/guardian advocate Justification for Continued Inpatient Stay: At this time patient would decompensate a place to a lower level of care Discharge Planning: To be determined Request Healthcare Surrogate/Guardian Advocate?: Yes
[2018-05-01] MEDS: QUEtiapine 100 MG Tablet PO SCH ×2 (08:59→20:03)
[2018-05-01] MEDS: Divalproex 250 MG ER Tablet PO SCH ×2 (08:59→20:03)
[2018-05-01] MEDS: Folic Acid 1 MG Tablet PO SCH (09:01)
[2018-05-01] MEDS: Propranolol 40 MG Tablet PO SCH ×2 (09:01→20:03)
[2018-05-01] MEDS: Sodium Chloride 1 GM Tablet PO SCH (09:01)
[2018-05-01] MEDS: amLODIPine 10 MG Tablet PO SCH (09:02)
--- NOTE | 2018-05-01 13:46 | P.PNPSY ---
Subjective Chief Complaint: acute psychosis Remarks: Patient seen and woo with floor staff, chart reviewed, patient compliant medication. Patient continues allowed intrusive grandiose with rapid pressured speech. Showing no insight into her disease. She does need frequent redirection and intervention. At this time we will add Seroquel 50 mg at 2 PM to regimen Review of Systems All other systems reviewed negative except as stated in HPI Mental Status Examination Appearance: Disheveled Consciousness: Alert, Vigilant Orientation: Person, Place, Date/Time (Somewhat confused) Motor Activity: Normal gait Speech: Pressured, Rapid Language: Perseveration Fund of Knowledge: Inadequate Attention and Concentration: Easily distracted Memory: Impaired Mood: Angry (Decreased today), Irritable, Manic Affect: Other (Increased range and intensity) Thought Process & Associations: Loose associations, Disorganized Thought Content: Racing thoughts, Delusional Hallucination Type: Auditory (Denies today) Delusion Type: Bizarre (Somewhat decreased) Suicidal Ideation: No Suicidal Plan: No Suicidal Intention: No Homicidal Ideation: No Homicidal Plan: No Homicidal Intention: No Insight: Poor Judgment: Poor Assessment and Plan - Assessment (1) Bipolar affective disorder, currently manic, severe, with psychotic features Code(s): F31.2 - Bipolar disorder, current episode manic severe with psychotic features Status: Acute - Plan Plan: Patient continues manic intense with psychotic features and no insight. She medication adjustment above Justification for Continued Inpatient Stay: At this time patient would decompensate a place to a lower level of care Discharge Planning: Continue to work on finding appropriate placement Request Healthcare Surrogate/Guardian Advocate?: Yes
[2018-05-01] MEDS: QUEtiapine 25 MG Tablet PO SCH (15:19)
[2018-05-02] MEDS: amLODIPine 10 MG Tablet PO SCH (08:15)
[2018-05-02] MEDS: Sodium Chloride 1 GM Tablet PO SCH (08:15)
[2018-05-02] MEDS: Propranolol 40 MG Tablet PO SCH ×2 (08:15→20:37)
[2018-05-02] MEDS: Divalproex 250 MG ER Tablet PO SCH ×2 (08:16→20:36)
[2018-05-02] MEDS: QUEtiapine 100 MG Tablet PO SCH ×2 (08:16→20:37)
[2018-05-02] MEDS: Folic Acid 1 MG Tablet PO SCH (08:17)
--- NOTE | 2018-05-02 14:09 | P.PNPSY ---
Subjective Chief Complaint: acute psychosis Remarks: Patient was seen and case discussed with nursing. Patient remains elevated with flight of ideas, hyperactive. Today, patient claims that another patient with dementia exposed himself to her. Nursing believes that this is unlikely given their knowledge of this patient but his nurse and a social service worker that saw him will be reported to the nurse bindery supervisor today. Patient remains grandiose and internally stimulated Mental Status Examination Appearance: Disheveled Consciousness: Alert, Vigilant Orientation: Person, Place, Date/Time (Somewhat confused) Motor Activity: Normal gait Speech: Pressured, Rapid Language: Perseveration Fund of Knowledge: Inadequate Attention and Concentration: Easily distracted Memory: Impaired Mood: Angry (Decreased today), Irritable, Manic Affect: Other (Increased range and intensity) Thought Process & Associations: Loose associations, Disorganized Thought Content: Racing thoughts, Delusional Hallucination Type: Auditory (Denies today) Delusion Type: Bizarre (Somewhat decreased) Suicidal Ideation: No Suicidal Plan: No Suicidal Intention: No Homicidal Ideation: No Homicidal Plan: No Homicidal Intention: No Insight: Poor Judgment: Poor Assessment and Plan - Assessment (1) Bipolar affective disorder, currently manic, severe, with psychotic features Code(s): F31.2 - Bipolar disorder, current episode manic severe with psychotic features Status: Acute - Plan Plan: See HPI, we will assign a 1:1 for her Justification for Continued Inpatient Stay: see reason Request Healthcare Surrogate/Guardian Advocate?: Yes
[2018-05-02] MEDS: QUEtiapine 25 MG Tablet PO SCH (15:10)
[2018-05-02] MEDS: Acetaminophen 325 MG Tablet PO PRN (21:54)
--- NOTE | 2018-05-03 08:04 | P.PNPSY ---
Subjective Chief Complaint: acute psychosis Remarks: Medical record reviewed and discussed with nursing staff. Patient in day room eating breakfast. Rounded with SHERYL Huang. Patient is on a one-to-one. She is very grandiose, hypervigilant and intrusive. She is preoccupied with a perceived incident that occurred yestesday. She state the the person with her is "my body guard." She is dishevel, unfocused and rambling. She states that she feels staff because there are staff with her. Review of Systems All other systems reviewed negative except as stated in HPI Mental Status Examination Appearance: Disheveled Consciousness: Alert, Vigilant Orientation: Person, Place, Date/Time (Somewhat confused) Motor Activity: Normal gait Speech: Pressured, Rapid Language: Perseveration Fund of Knowledge: Inadequate Attention and Concentration: Easily distracted Memory: Impaired Mood: Angry (Decreased today), Irritable, Manic Affect: Other (Increased range and intensity) Thought Process & Associations: Loose associations, Disorganized Thought Content: Racing thoughts, Delusional Hallucination Type: Auditory (Denies today) Delusion Type: Bizarre (Somewhat decreased) Suicidal Ideation: No Suicidal Plan: No Suicidal Intention: No Homicidal Ideation: No Homicidal Plan: No Homicidal Intention: No Insight: Poor Judgment: Poor Assessment and Plan - Assessment (1) Hyponatremia Code(s): E87.1 - Hypo-osmolality and hyponatremia Status: Acute (2) Bipolar affective disorder, currently manic, severe, with psychotic features Code(s): F31.2 - Bipolar disorder, current episode manic severe with psychotic features Status: Acute - Plan Plan: Continue current treatment plan. Continue 1:1 due to patient's intrusive behavior with other patients. Justification for Continued Inpatient Stay: Moving patient to a less restrictive environment may result in her decompensation. Request Healthcare Surrogate/Guardian Advocate?: Yes
[2018-05-03] MEDS: Sodium Chloride 1 GM Tablet PO SCH (08:30)
[2018-05-03] MEDS: Propranolol 40 MG Tablet PO SCH ×2 (08:30→21:10)
[2018-05-03] MEDS: QUEtiapine 100 MG Tablet PO SCH ×2 (08:30→20:18)
[2018-05-03] MEDS: Divalproex 250 MG ER Tablet PO SCH ×2 (08:31→20:18)
[2018-05-03] MEDS: amLODIPine 10 MG Tablet PO SCH (08:31)
[2018-05-03] MEDS: Folic Acid 1 MG Tablet PO SCH (08:31)
[2018-05-03] MEDS: Acetaminophen 325 MG Tablet PO PRN ×2 (11:03→20:21)
[2018-05-03] MEDS: QUEtiapine 25 MG Tablet PO SCH (15:40)
[2018-05-04] MEDS: Sodium Chloride 1 GM Tablet PO SCH (09:19)
[2018-05-04] MEDS: Propranolol 40 MG Tablet PO SCH ×2 (09:20→20:28)
[2018-05-04] MEDS: amLODIPine 10 MG Tablet PO SCH (09:20)
[2018-05-04] MEDS: Divalproex 250 MG ER Tablet PO SCH (09:21)
[2018-05-04] MEDS: Folic Acid 1 MG Tablet PO SCH (09:21)
[2018-05-04] MEDS: QUEtiapine 100 MG Tablet PO SCH ×2 (09:21→20:28)
--- NOTE | 2018-05-04 10:53 | P.PNPSY ---
Subjective Chief Complaint: acute psychosis Remarks: Patient seen in day room with nurse Ana, chart reviewed, patient continues intrusive with rapid pressured speech very poor boundaries and mild grandiosity now stating she would take a settlement of $45,000 related to the $100,000 she has here. She is quite vigilant related to all activities on the unit. I did need to explain to her the significant mental health issues and patient's behaviors. She showed little insight into that. Patient's Depakote level drawn on 05/03 is 51 we will increase Depakote to 250 mg a.m. 500 mg at bedtime and recheck level on 05/07. We will also increase Seroquel to 100 mg a.m. 50 mg in the afternoon and 100 mg in the evening Review of Systems All other systems reviewed negative except as stated in HPI Mental Status Examination Appearance: Disheveled (Slightly) Consciousness: Alert, Vigilant Orientation: Person, Place, Date/Time (Somewhat confused) Motor Activity: Normal gait Speech: Pressured, Rapid Language: Perseveration Fund of Knowledge: Inadequate Attention and Concentration: Easily distracted Memory: Impaired Mood: Angry (Decreased today), Irritable, Manic Affect: Other (Increased range and intensity) Thought Process & Associations: Loose associations, Disorganized Thought Content: Racing thoughts, Delusional Hallucination Type: Auditory (Denies today) Delusion Type: Bizarre (Somewhat decreased) Suicidal Ideation: No Suicidal Plan: No Suicidal Intention: No Homicidal Ideation: No Homicidal Plan: No Homicidal Intention: No Insight: Poor Judgment: Poor Assessment and Plan - Assessment (1) Bipolar affective disorder, currently manic, severe, with psychotic features Code(s): F31.2 - Bipolar disorder, current episode manic severe with psychotic features Status: Acute - Plan Plan: Patient continues delusional manic somewhat paranoid and vigilant. Please see medication adjustments above Justification for Continued Inpatient Stay: At this time patient would decompensate a place to a lower level of care Discharge Planning: To be determined Request Healthcare Surrogate/Guardian Advocate?: Yes
[2018-05-04] MEDS: QUEtiapine 25 MG Tablet PO SCH (14:36)
[2018-05-04] MEDS: Divalproex 500 MG ER Tablet PO SCH (20:28)
[2018-05-04] MEDS: Acetaminophen 325 MG Tablet PO PRN (23:52)
[2018-05-05] MEDS: Folic Acid 1 MG Tablet PO SCH (08:49)
[2018-05-05] MEDS: Propranolol 40 MG Tablet PO SCH ×2 (08:50→21:10)
[2018-05-05] MEDS: Sodium Chloride 1 GM Tablet PO SCH (08:50)
[2018-05-05] MEDS: Divalproex 250 MG ER Tablet PO SCH (08:50)
[2018-05-05] MEDS: QUEtiapine 100 MG Tablet PO SCH ×2 (08:50→21:10)
[2018-05-05] MEDS: amLODIPine 10 MG Tablet PO SCH (08:50)
--- NOTE | 2018-05-05 11:49 | P.PNPSY ---
Subjective Chief Complaint: acute psychosis Remarks: Patient seen and woo with floor staff, chart reviewed, patient compliant medication, patient continues somewhat intrusive with rapid pressured speech though it is softening slightly. She denies suicidality at this time denies voices. For now continue treatment awaiting Depakote blood level on 05/07 Review of Systems All other systems reviewed negative except as stated in HPI Mental Status Examination Appearance: Appropriate Consciousness: Alert, Vigilant Orientation: Person, Place, Date/Time (Somewhat confused) Motor Activity: Normal gait Speech: Pressured (Slightly softer), Rapid (Slightly softer) Language: Perseveration Fund of Knowledge: Inadequate Attention and Concentration: Easily distracted Memory: Impaired Mood: Angry (Decreased today), Irritable (Decreased today), Manic Affect: Other (Increased range and intensity) Thought Process & Associations: Loose associations, Disorganized Thought Content: Racing thoughts, Delusional Hallucination Type: Auditory (Denies today) Delusion Type: Bizarre (Somewhat decreased) Suicidal Ideation: No Suicidal Plan: No Suicidal Intention: No Homicidal Ideation: No Homicidal Plan: No Homicidal Intention: No Insight: Poor Judgment: Poor Assessment and Plan - Assessment (1) Bipolar affective disorder, currently manic, severe, with psychotic features Code(s): F31.2 - Bipolar disorder, current episode manic severe with psychotic features Status: Acute - Plan Plan: Patient continues with rapid pressured speech though somewhat softer today, compliant medications. For now continue treatment with Depakote blood level on 05/07 Justification for Continued Inpatient Stay: At this time patient would decompensate a place to a lower level of care Discharge Planning: To be determined Request Healthcare Surrogate/Guardian Advocate?: Yes
[2018-05-05] MEDS: Acetaminophen 325 MG Tablet PO PRN ×3 (12:25→21:48)
[2018-05-05] MEDS: QUEtiapine 25 MG Tablet PO SCH (13:37)
[2018-05-05] MEDS: Divalproex 500 MG ER Tablet PO SCH (21:10)
[2018-05-06] MEDS: Folic Acid 1 MG Tablet PO SCH (08:53)
[2018-05-06] MEDS: Acetaminophen 325 MG Tablet PO PRN (08:53)
[2018-05-06] MEDS: QUEtiapine 100 MG Tablet PO SCH ×3 (08:53→18:06)
[2018-05-06] MEDS: Sodium Chloride 1 GM Tablet PO SCH (08:53)
[2018-05-06] MEDS: Divalproex 250 MG ER Tablet PO SCH (08:53)
[2018-05-06] MEDS: amLODIPine 10 MG Tablet PO SCH (08:53)
[2018-05-06] MEDS: Propranolol 40 MG Tablet PO SCH ×2 (08:53→20:34)
--- NOTE | 2018-05-06 11:19 | P.PNPSY ---
Subjective Chief Complaint: acute psychosis Remarks: Patient seen and woo with floor staff, chart reviewed, patient compliant medication. While patient remains with rapid pressured speech it is slowly resolving. Patient today states that her is now at [facility]. We will attempt to verify this. She continues to denies suicidality voices or visions. For now continue treatment. We will increase Seroquel to 100 mg 3 times daily Review of Systems All other systems reviewed negative except as stated in HPI Mental Status Examination Appearance: Appropriate Consciousness: Alert, Vigilant Orientation: Person, Place, Date/Time (Somewhat confused) Motor Activity: Normal gait Speech: Pressured (Slightly softer), Rapid (Slightly softer) Language: Perseveration (Softening) Fund of Knowledge: Inadequate Attention and Concentration: Easily distracted Memory: Impaired Mood: Angry (Decreased today), Irritable (Decreased today), Manic (Decreasing) Affect: Other (Increased range and intensity) Thought Process & Associations: Loose associations (Improving), Disorganized Thought Content: Racing thoughts, Delusional Hallucination Type: Auditory (Denies today) Delusion Type: Bizarre (Somewhat decreased) Suicidal Ideation: No Suicidal Plan: No Suicidal Intention: No Homicidal Ideation: No Homicidal Plan: No Homicidal Intention: No Insight: Poor Judgment: Poor Assessment and Plan - Assessment (1) Bipolar affective disorder, currently manic, severe, with psychotic features Code(s): F31.2 - Bipolar disorder, current episode manic severe with psychotic features Status: Acute - Plan Plan: Patient continues to have pressured speech but diminishing somewhat today. Patient claims that her is now in a local rehab facility will have staff attempt to verify that. She medication adjustment above Justification for Continued Inpatient Stay: This time patient would decompensate a place to a lower level of care Discharge Planning: To be determined Request Healthcare Surrogate/Guardian Advocate?: Yes
--- NOTE | 2018-05-06 13:20 | P.TTN ---
- Patient Problems Problems: 1. Discharge planning 2. Medication compliance 3. Knowledge deficit 4. Lack of coping skills - Progress Toward Goals Provider Present: Dr. Erin Brown, Dr. Adrián Perera Provider Input: 05/06/18: per MD, pt medications currently continuing to be titrated as pt has not consistently stabilized, she remains manic. Discharge of pt is complicated by concomittant admission of pt's spouse to [facility] ICU. Pt's dtr resides in [place] and is expected to come to [place] as pt discharge date becomes closer. Martina, counselor, will follow-up with pt's dtr. Pt's discharge options include to her home, if it is deemed appropriate. : Dr. Brown, Family meeting planned for 04/29/18. 04/27/18: Pt is newly admitted over weekend, she has hx of previous [facility] admission to psychiatry. MD to see pt today. Nurse(s) Present: Brandi Nurse Input: 04/29/18: Med Compliant, sleeping 4 to 5 hours nightly, appropriate with staff. Psychiatric Counselors Present: Cooper Nair Jr., [facility], Martina Oden, [facility] Psychiatric Therapist Input: 04/29/18: Martina Counselor: Counselor will discuss discharge planning with familky. Discharged when stable. Group Spec/RT/OT/MAYS Present: MALREN Mccarty, Rakan Briones, OT Group Spec/RT/OT/MAYS Input: 05/06/18: Pt has been attending groups, intermittently, but inconsistently. 04/29/18: Pt is plesant and cooperative when attending select group activities. Pt is hypermanic and needs some redirection. 04/27/18: Pt is newly re-admitted, she has not attended groups as yet, currently unable to tolerate. - Discharge Plan 05/06/18: Discharge of pt is complicated by concomittant admission of pt's spouse to [facility] ICU. Pt's dtr resides in [place] and is expected to come to [place] as pt discharge date becomes closer. abimael Mackor, will follow-up with pt's dtr. Pt's discharge options include to her home, if it is deemed appropriate 04/29/18: Patient will be discharged when stable, Counselor will discuss discharge plan with the Patients family. 04/27/18: Pt newly admitted, pt meeting in-pt criteria per OTRMD to see pt today. - Documentation Scribe: Rita Fields Teaching Recipient: Patient
[2018-05-06] MEDS: Divalproex 500 MG ER Tablet PO SCH (20:34)
[2018-05-07] MEDS: Acetaminophen 325 MG Tablet PO PRN (00:49)
[2018-05-07] MEDS: Folic Acid 1 MG Tablet PO SCH (08:22)
[2018-05-07] MEDS: amLODIPine 10 MG Tablet PO SCH (08:23)
[2018-05-07] MEDS: Divalproex 250 MG ER Tablet PO SCH (08:24)
[2018-05-07] MEDS: Propranolol 40 MG Tablet PO SCH ×2 (08:24→20:20)
[2018-05-07] MEDS: QUEtiapine 100 MG Tablet PO SCH ×3 (08:25→17:31)
[2018-05-07] MEDS: Sodium Chloride 1 GM Tablet PO SCH (11:35)
--- NOTE | 2018-05-07 13:55 | P.PNPSY ---
Subjective Chief Complaint: acute psychosis Remarks: Patient seen in her room with nurse Gali, chart reviewed, patient compliant medication. Patient continues with rapid pressured speech that is somewhat softer and slower. Patient still has somewhat grandiose and delusional today asking if she can stay for another week so she can make reservations for she and her daughter to fly to [place]. Depakote blood level drawn this morning came back at 61. Will increase Depakote to 500 mg twice daily check a blood level on 05/11. We will discontinue one-to-one observation place patient on close observation off unit privileges Review of Systems All other systems reviewed negative except as stated in HPI Mental Status Examination Appearance: Appropriate Consciousness: Alert, Vigilant Orientation: Person, Place, Date/Time (Somewhat confused) Motor Activity: Normal gait Speech: Pressured (Slightly softer), Rapid (Slightly softer) Language: Perseveration (Softening) Fund of Knowledge: Inadequate Attention and Concentration: Easily distracted Memory: Impaired Mood: Angry (Decreased today), Irritable (Decreased today), Manic (Decreasing) Affect: Other (Increased range and intensity) Thought Process & Associations: Loose associations (Improving), Disorganized Thought Content: Racing thoughts, Delusional Hallucination Type: Auditory (Denies today) Delusion Type: Bizarre (Somewhat decreased) Suicidal Ideation: No Suicidal Plan: No Suicidal Intention: No Homicidal Ideation: No Homicidal Plan: No Homicidal Intention: No Insight: Poor Judgment: Poor Assessment and Plan - Assessment (1) Bipolar affective disorder, currently manic, severe, with psychotic features Code(s): F31.2 - Bipolar disorder, current episode manic severe with psychotic features Status: Acute - Plan Plan: Patient remains manic with rapid pressured speech and grandiosity. C medication adjustments above Justification for Continued Inpatient Stay: At this time patient would decompensate a place to a lower level of care Discharge Planning: To be determined patient has been asked to call her daughter who lives out of state to see if she can perhaps stay with her Request Healthcare Surrogate/Guardian Advocate?: Yes
[2018-05-07] MEDS: Divalproex 500 MG ER Tablet PO SCH (20:21)
[2018-05-08] MEDS: Sodium Chloride 1 GM Tablet PO SCH (08:20)
[2018-05-08] MEDS: Divalproex 500 MG ER Tablet PO SCH ×2 (08:20→22:17)
[2018-05-08] MEDS: Folic Acid 1 MG Tablet PO SCH (08:21)
[2018-05-08] MEDS: amLODIPine 10 MG Tablet PO SCH (08:21)
[2018-05-08] MEDS: Propranolol 40 MG Tablet PO SCH ×2 (08:21→22:18)
[2018-05-08] MEDS: QUEtiapine 100 MG Tablet PO SCH ×3 (08:24→17:10)
--- NOTE | 2018-05-08 10:40 | P.PNPSY ---
Subjective Chief Complaint: acute psychosis Remarks: Patient seen today and woo with floor staff, chart reviewed, patient compliant medications. Patient's rapid pressured speech is somewhat softer though this still appears to be some delusional ideation related to discharge planning participation with her children and to plans to go to [place]. It appears there is concerns about patient's safety with her per her counselors DCF is checking on this her is now in a long-term facility with severe Parkinson's disease. Review of Systems All other systems reviewed negative except as stated in HPI Mental Status Examination Appearance: Appropriate Consciousness: Alert, Vigilant Orientation: Person, Place, Date/Time (Somewhat confused) Motor Activity: Normal gait Speech: Pressured (Slightly softer), Rapid (Slightly softer) Language: Perseveration (Softening) Fund of Knowledge: Inadequate Attention and Concentration: Easily distracted Memory: Impaired Mood: Angry (Decreased today), Irritable (Decreased today), Manic (Decreasing) Affect: Other (Increased range and intensity) Thought Process & Associations: Loose associations (Improving), Disorganized Thought Content: Racing thoughts, Delusional Hallucination Type: Auditory (Denies today) Delusion Type: Bizarre (Somewhat decreased) Suicidal Ideation: No Suicidal Plan: No Suicidal Intention: No Homicidal Ideation: No Homicidal Plan: No Homicidal Intention: No Insight: Poor Judgment: Poor Assessment and Plan - Assessment (1) Bipolar affective disorder, currently manic, severe, with psychotic features Code(s): F31.2 - Bipolar disorder, current episode manic severe with psychotic features Status: Acute - Plan Plan: Patient continues with rapid pressured speech the somewhat softening, she is still somewhat grandiose and delusional with her ideation, compliant medication Justification for Continued Inpatient Stay: At this time patient would decompensate a place to a lower level of care Discharge Planning: To be determined Request Healthcare Surrogate/Guardian Advocate?: Yes
[2018-05-09] MEDS: Acetaminophen 325 MG Tablet PO PRN ×2 (03:49→21:29)
[2018-05-09] MEDS: QUEtiapine 100 MG Tablet PO SCH ×3 (09:37→17:39)
[2018-05-09] MEDS: Divalproex 500 MG ER Tablet PO SCH ×2 (09:37→20:52)
[2018-05-09] MEDS: Sodium Chloride 1 GM Tablet PO SCH (09:37)
[2018-05-09] MEDS: Propranolol 40 MG Tablet PO SCH ×2 (09:37→20:53)
[2018-05-09] MEDS: Folic Acid 1 MG Tablet PO SCH (09:37)
[2018-05-09] MEDS: amLODIPine 10 MG Tablet PO SCH (09:38)
--- NOTE | 2018-05-09 13:56 | P.PNPSY ---
Subjective Chief Complaint: acute psychosis Remarks: Reviewed electronic medical records and discussed case with staff. Follow-up was conducted in the patient's room with SHERYL Corona present. She was able initially to sit and stay fairly quiet and listen however, when she launched into her story of why she was here he had rapid pressured speech. She was tangential. She reports that she feels great, slept great, and her appetite's been "wonderful". She remains manic. Mental Status Examination Appearance: Appropriate Consciousness: Alert, Vigilant Orientation: Person, Place, Date/Time (Somewhat confused) Motor Activity: Normal gait Speech: Pressured (Slightly softer), Rapid (Slightly softer) Language: Perseveration (Softening) Fund of Knowledge: Inadequate Attention and Concentration: Easily distracted Memory: Impaired Mood: Angry (Decreased today), Irritable (Decreased today), Manic (Decreasing) Affect: Other (Increased range and intensity) Thought Process & Associations: Loose associations (Improving), Disorganized Thought Content: Racing thoughts, Delusional Hallucination Type: Auditory (Denies today) Delusion Type: Bizarre (Somewhat decreased) Suicidal Ideation: No Suicidal Plan: No Suicidal Intention: No Homicidal Ideation: No Homicidal Plan: No Homicidal Intention: No Insight: Poor Judgment: Poor Assessment and Plan - Assessment (1) Bipolar affective disorder, currently manic, severe, with psychotic features Code(s): F31.2 - Bipolar disorder, current episode manic severe with psychotic features Status: Acute - Plan Plan: Patient continues with rapid pressured speech the somewhat softening, she is still somewhat grandiose and delusional with her ideation, compliant medication Justification for Continued Inpatient Stay: Moving this patient to a less restrictive environment would likely result in decompensation. Request Healthcare Surrogate/Guardian Advocate?: Yes
--- NOTE | 2018-05-10 09:13 | P.PNPSY ---
Subjective Chief Complaint: acute psychosis Remarks: Reviewed electronic record and discussed with nursing staff. Rounded with SHERYL Corona. Patient in her room. She is rambling and manic. States that she has contacted [employer]ush and [employer] with an $900,000 lawsuit against [facility]. States that multiple other patients are in her space and reflecting on a photo taken of her naked in the ED, and a patient exposing him self to her over a week ago. 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 She is redirectable. She is medication compliant. Review of Systems All other systems reviewed negative except as stated in HPI Mental Status Examination Appearance: Appropriate Consciousness: Alert, Vigilant Orientation: Person, Place, Date/Time (Somewhat confused) Motor Activity: Normal gait Speech: Pressured (Slightly softer), Rapid (Slightly softer) Language: Perseveration (Softening) Fund of Knowledge: Inadequate Attention and Concentration: Easily distracted Memory: Impaired Mood: Angry (Decreased today), Irritable (Decreased today), Manic (Decreasing) Affect: Other (Increased range and intensity) Thought Process & Associations: Loose associations (Improving), Disorganized Thought Content: Racing thoughts, Delusional Hallucination Type: Auditory (Denies today) Delusion Type: Bizarre (Somewhat decreased) Suicidal Ideation: No Suicidal Plan: No Suicidal Intention: No Homicidal Ideation: No Homicidal Plan: No Homicidal Intention: No Insight: Poor Judgment: Poor Assessment and Plan - Assessment (1) Hyponatremia Code(s): E87.1 - Hypo-osmolality and hyponatremia Status: Acute (2) Bipolar affective disorder, currently manic, severe, with psychotic features Code(s): F31.2 - Bipolar disorder, current episode manic severe with psychotic features Status: Acute - Plan Plan: Patient continues with rapid pressured speech , grandiosity and delusional. Continue current treatment plan. Justification for Continued Inpatient Stay: Moving patient to a less restrictive environment may result in her decompensation. Request Healthcare Surrogate/Guardian Advocate?: Yes
[2018-05-10] MEDS: Divalproex 500 MG ER Tablet PO SCH ×2 (10:15→20:53)
[2018-05-10] MEDS: Propranolol 40 MG Tablet PO SCH ×2 (10:16→20:53)
[2018-05-10] MEDS: amLODIPine 10 MG Tablet PO SCH (10:16)
[2018-05-10] MEDS: QUEtiapine 100 MG Tablet PO SCH ×3 (10:16→18:04)
[2018-05-10] MEDS: Folic Acid 1 MG Tablet PO SCH (10:16)
[2018-05-10] MEDS: Sodium Chloride 1 GM Tablet PO SCH (10:16)
[2018-05-10] MEDS: Acetaminophen 325 MG Tablet PO PRN (12:56)
[2018-05-11 06:58] VITALS: BP 111/58; PULSE 86; RESP 18; TEMP 97.8; O2SAT 96
[2018-05-11] MEDS: Sodium Chloride 1 GM Tablet PO SCH (08:09)
[2018-05-11] MEDS: QUEtiapine 100 MG Tablet PO SCH (08:09)
[2018-05-11] MEDS: Propranolol 40 MG Tablet PO SCH (08:09)
[2018-05-11] MEDS: Divalproex 500 MG ER Tablet PO SCH (08:10)
[2018-05-11] MEDS: Folic Acid 1 MG Tablet PO SCH (08:11)
[2018-05-11] MEDS: amLODIPine 10 MG Tablet PO SCH (08:11)
--- NOTE | 2018-05-11 10:38 | P.DSPSY ---
Psychiatry Discharge Summary Inpatient Psychiatric care?: Yes Advance Directives: No Mental Health Advance Directive: No Health Care Proxy: No - Admission Admission Date: April 25, 2018 19:52 - Admission Diagnosis (1) Bipolar affective disorder, currently manic, severe, with psychotic features Code(s): F31.2 - Bipolar disorder, current episode manic severe with psychotic features Brief History: Patient is a 67-year-old female with an unknown psychiatric history. Patient is admitted here [facility] after being found walking down the street by herself at night. She was picked up by janice Cortez who later called police. Patient was reportedly nonsensical and talking on a cordless phone that was not functional given that is not a cell phone. Today, patient is pressured, tangential and disorganized. She is at times pleasant and at times threatening to "bring out the transition specialist." Patient claims she was walking a 4 mile trip to make a photocopy and then bring her passport to her who is currently in the [facility]. At this time patient does deny auditory or visual hallucinations. She denies suicidal or homicidal ideation intent or plan. Patient also has other bizarre delusions that her neighbor stole her car keys a year ago. She is trying to get his Social Security taken away from him get possession of his car. Later she says she is still driving her car. Past psych: Patient was seeing a Dr. Robins and was on trazodone and Risperdal. She is unsure of her diagnosis. She has had one day other Cook act at [facility] 20 years ago. Though, patient says she moved to [place] 10 years ago. Past medical: Hypertension Past Famhx: Denies Past Social: Patient originally from [place]. 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 Patient says she has 4 kids who allegedly live in [place] and are "very wealthy." Tobacco Use In Past 30 Days: No How Often Do You Have a Drink Containing Alcohol: Never Hospital Course: Patient's hospital course was significant for the persistence of her alison and intrusiveness and grandiosity with little insight. However as she continued with the medication management the paranoia and grandiosity slowly diminished in intensity and range. Her intrusiveness diminished. Her rapid pressured speech diminished. She shows some insight into her need for continuing medication and compliance with both medications and appointments after discharge. Patient is aware of her 's being placed in a shelter facility at this time and in need to keep distance from him at this time. Patient does deny suicidality or homicidality voice or visions. At this time I feel patient has reached maximum benefit of this hospitalization thus she will be discharged today to herself with Rx times 1 month follow-ups per [place] [facility] outpatient medication management - Discharge Discharge Date: 05/11/18 - Discharge Diagnosis (1) Bipolar affective disorder, currently manic, severe, with psychotic features Code(s): F31.2 - Bipolar disorder, current episode manic severe with psychotic features Status: Acute Discharge Disposition: Home - Discharge Instructions Discharge Diet: Regular Diet Activities You Can Perform: Regular- No Restrictions - Discharge Time > 30 minutes Mental Status Examination Appearance: Appropriate Consciousness: Alert, Vigilant Orientation: Person, Place, Date/Time (Somewhat confused) Motor Activity: Normal gait Speech: Pressured (Slightly softer), Rapid (Slightly softer) Language: Perseveration (Softening) Fund of Knowledge: Inadequate Attention and Concentration: Easily distracted Memory: Impaired Mood: Angry (Decreased today), Irritable (Decreased today), Manic (Decreasing) Affect: Other (Increased range and intensity) Thought Process & Associations: Loose associations (Improving), Disorganized Thought Content: Racing thoughts, Delusional Hallucination Type: Auditory (Denies today) Delusion Type: Bizarre (Somewhat decreased) Suicidal Ideation: No Suicidal Plan: No Suicidal Intention: No Homicidal Ideation: No Homicidal Plan: No Homicidal Intention: No Insight: Poor Judgment: Poor Discharge/Advance Care Plan - Results Vital Signs: Last Vital Signs Temp 97.8 F 05/11/18 06:00 Pulse 86 05/11/18 06:00 Resp 18 05/11/18 06:00 BP 111/58 L 05/11/18 06:00 Pulse Ox 96 05/11/18 06:00 Lab Results: Abnormal Lab Results 05/11/18 05:51 Valproic Acid 68 Laboratory Results Hemoglobin A1c 5.3 % (4.3-6.0) 04/26/18 09:18 Triglycerides 179 mg/dL (42-150) H 04/26/18 09:18 Cholesterol 179 mg/dL (120-200) 04/26/18 09:18 LDL Cholesterol, Calc 95 mg/dL (0-99) 04/26/18 09:18 HDL Cholesterol 48.3 mg/dL (40.0-60.0) 04/26/18 09:18 TSH 2.430 uIU/mL (0.358-3.740) 04/25/18 07:42 Urine Culture Comments Culture not ind 04/25/18 06:01 Valproic Acid 68 mcg/mL (50-100) 05/11/18 05:51 Summary of Procedures: None done Imaging: ITS Impressions Head CT 04/28/18 00:00 CONCLUSION: 1. No acute findings. . Shoulder X-Ray 04/28/18 00:00 CONCLUSION: No evidence of recent bony injury. Pending Results: None - Medications Number of antipsychotic medications at discharge: 1 - Discharge Care Plan Goals to Promote Your Health: * To prevent worsening of your condition and complications * To maintain your health at the optimal level Directions to Meet Your Goals: Take your medications as prescribed Follow your dietary instruction Follow activity as directed Keep your appointments as scheduled Take your immunizations and boosters as scheduled If your symptoms worsen call your PCP, if no PCP go to Urgent Care Center or Emergency Room For 13/01 questions related to your inpatient stay or results of tests pending at discharge, please contact Dr. Julian Brown MD at Smoking is Dangerous to Your Health. Avoid second hand smoking
== END 2018-05-11 13:05 | disposition home or self-care (01) ==
LOC: NEPD 05:08 → NEDA 19:52 → H260 21:08 → H250 22:08
PROVIDERS: ADMIT Psychiatry & Neurology Psychiatry; ATTEND Psychiatry & Neurology Psychiatry

== ENCOUNTER 2018-05-16 17:21 | Inpatient (IN) ==
[2018-05-16] MEDS ORDERED: Sod Chloride 0.9% Inj 1,000 ML IV.SIG SCH ×2 (18:15→23:00)
--- NOTE | 2018-05-16 18:16 | ED ---
HPI General Chief Complaint: Psychiatric Symptoms Stated Complaint: Alexandre Eval/VCSO Time Seen by Provider: 05/16/18 18:00 Source: patient Mode of arrival: ambulatory Limitations: no limitations History of Present Illness HPI Narrative: [age]-year-old female presents to emergency department as a Cook act for concern of harming herself. According to the [place] act, patient was at [facility] when she began cussing and screaming. Patient states she was due to fly out of [place] and go to [place]. TARYN confirms that the flight did not exist and determined that she was incompetent and unable to care for herself. Upon evaluation, patient is very tangential and a poor historian. Patient states that she was at the airport because her grandson committed suicide. She also states that her is dying and he is local. Patient denies use of illicit drugs, alcohol or tobacco. She states compliance with the medication which include blood pressure and bipolar medication. She is unable to tell me what medications she takes however. She says she has her prescriptions waiting at [facility] off [address] and says they are ready but she told me to cancel them. She denies fever, chills, chest pain, shortness of breath, abdominal pain. She denies SI/HI. MD complaint: Reports other Related Data Previous Rx's Medication Instructions Recorded amlodipine [Norvasc] 10 mg PO DAILY #30 tab 05/11/18 aspirin 81 mg PO DAILY #30 tab 05/11/18 atorvastatin 40 mg PO DAILY #30 tab 05/11/18 divalproex [Depakote ER] 500 mg PO BID #60 tab 05/11/18 fluticasone 1 spray NASAL BID #1 g 05/11/18 folic acid 1 mg PO DAILY #30 tab 05/11/18 pantoprazole 40 mg PO DAILY #30 tab 05/11/18 potassium chloride [Klor-Con 10] 10 meq PO DAILY #30 tab 05/11/18 propranolol 40 mg PO BID #30 tab 05/11/18 quetiapine 100 mg PO TID #90 tab 05/11/18 sodium chloride 1 gm PO DAILY #30 tab 05/11/18 Allergies Allergy/AdvReac Type Severity Reaction Status Date / Time No Known Allergies Allergy Verified 05/16/18 17:30 Review of Systems ROS: all other systems reviewed are negative [facility] Social History Social History Substance History: No History of Abuse Second Hand Smoke Exposure: No Smoking Status: Former smoker Tobacco Type: Cigarettes How Often Do You Have a Drink Containing Alcohol: 2 to 3 times a week Recent Travel in [facility] within the Last 8 Weeks: No Recent Out of Country Travel within the Last 8 Weeks: No Immunization History Tetanus Immunization: Unsure Exam Narrative Exam Narrative: GENERAL: WD, WN, manic and tangential historian SKIN: Focused skin assessment warm/dry. HEAD: Atraumatic. Normocephalic. EYES: Pupils equal and round. No scleral icterus. No injection or drainage. ENT: No nasal bleeding or discharge. Mucous membranes pink and moist. No tonsillar hypertrophy or exudate. NECK: Trachea midline. No JVD. No meningismus. CARDIOVASCULAR: Regular rate and rhythm. No murmur appreciated. RESPIRATORY: No accessory muscle use. Clear to auscultation. Breath sounds equal bilaterally. GASTROINTESTINAL: Abdomen soft, non-tender, nondistended. Hepatic and splenic margins not palpable. No CVAT. MUSCULOSKELETAL: No obvious deformities. No clubbing. No cyanosis. No edema. No tenderness to palpation of the calves. Sensation intact to bilateral lower extremities. NEUROLOGICAL: Awake and alert. No obvious cranial nerve deficits. Motor grossly within normal limits. Normal speech. Psych Appearance: well kempt Mental Status: mental status grossly normal Speech and Movement: speech clear and restless Mood: anxious mood, expansive and manic mood Affect: anxious affect and indifferent Attitude: cooperative Thought Process: confabulating, flight of ideas, loose association and tangential Thought Content: no hallucinations, no homicidality, ideas of reference, no phobias and suicidality Judgment: fair Course Initial Documented Vital Signs Temperature 99.3 F 05/16/18 17:30 Pulse Rate 145 H 05/16/18 17:30 Respiratory Rate 18 05/16/18 17:30 Blood Pressure 195/110 H 05/16/18 17:30 Pulse Oximetry 97 05/16/18 17:30 Last Documented Vital Signs Temperature 99.4 F 05/18/18 07:53 Pulse Rate 72 05/18/18 05:27 Respiratory Rate 18 05/18/18 05:27 Blood Pressure 122/76 05/18/18 05:27 Pulse Oximetry 96 05/18/18 05:27 Medical Decision Making MDM Narrative Medical decision making narrative: 67-year-old female with a history of hypertension presents to the emergency department as a Cook act. Cook act states patient was at the airport when she lifts bags unattended began screaming and unreasonable. Patient states compliance with medications but at this point it is questionable. Her blood pressure is elevated and her heart rate is tachycardic. Repeat vital signs demonstrate blood pressure stable. Rate 120s. There is still questionable compliance with the blood pressure medications. Labs are significant and notable for WBCs 10.2, H/H 11.3/33.4, platelets 526, urinalysis consistent with a probable urinary tract infection. Urine drug screen negative. Will administer 2 g of Rocephin for urinary tract infection. I am not convinced that this is causing her symptoms however. Labs are notable for K 3.3, replaced with 20meq KCl. Pt is medically cleared for psych eval. Medical Screen Exam Complete: Yes Emergency Medical Condition: Yes Medical Records Medical records reviewed: Yes I reviewed the patient's medical records. Patient was discharged from this hospital May 11 after a 2-week stay for psych evaluation. Her symptoms today are similar to the previous episodes and it appears her is in a SNF. 1145-briefly evaluated patient she is manic asking the same repetitive questions over and over. Her lab work is positive for mild decrease in potassium of 3.3 which was replaced with 20 mEq of KCl yesterday p.o. x1 dose per she also has a urinary tract infection for which she received 2 g of Rocephin IV yesterday as well. Will give 20 mEq KCl p.o. x1 dose now as well as Keflex 500 mg p.o. x1 dose now RENEE Baez is aware and are transported patient over to [facility] in stable condition. Urine drug screens and alcohol were negative. Patient stable for transfer to [facility]. Lab Data Result diagrams: 05/16/18 18:16 05/16/18 19:23 Lab Results 05/16/18 05/16/18 05/16/18 Range/Units 18:16 19:23 19:23 WBC 10.2 (4.0-11.0) th/mm3 RBC 3.77 L (4.00-5.30) mil/mm3 Hgb 11.3 L (11.6-15.3) gm/dL Hct 33.4 L (35.0-46.0) % MCV 88.7 (80.0-100.0) fL MCH 30.1 (27.0-34.0) pg MCHC 33.9 (32.0-36.0) % RDW 14.2 (11.6-17.2) % Plt Count 526 H (150-450) th/mm3 MPV 7.9 (7.0-11.0) fL Neut % (Auto) 75.3 H (16.0-70.0) % Lymph % (Auto) 13.2 (9.0-44.0) % [place] % (Auto) 10.3 H (0.0-8.0) % Eos % (Auto) 0.4 (0.0-4.0) % Baso % (Auto) 0.8 (0.0-2.0) % Neut # (Auto) 7.7 (1.8-7.7) th/mm3 Lymph # (Auto) 1.3 (1.0-4.8) th/mm3 [place] # (Auto) 1.0 H (0.0-0.9) th/mm3 Eos # (Auto) 0.0 (0.0-0.4) th/mm3 Baso # (Auto) 0.1 (0.0-0.2) th/mm3 WBC Differential . Differential Comment Auto diff final Sodium 135 L (136-145) meq/L Potassium 3.3 L (3.5-5.1) meq/L Chloride 98 (98-107) meq/L Carbon Dioxide 26.6 (21.0-32.0) meq/L Anion Gap 10 (5-15) meq/L BUN 10 (7-18) mg/dL Creatinine 0.83 (0.50-1.00) mg/dL Estimated GFR 69 L (>89) mL/min Random Glucose 116 H (74-106) mg/dL Calcium 8.8 (8.5-10.1) mg/dL Magnesium 1.6 (1.5-2.5) mg/dL Total Bilirubin 0.3 (0.2-1.0) mg/dL AST 24 (15-37) U/L ALT 32 (10-53) U/L Alkaline Phosphatase 107 (45-117) U/L Total Protein 7.6 (6.4-8.2) g/dL Albumin 3.8 (3.4-5.0) g/dL TSH 2.630 (0.358-3.740) uIU/mL Urine Color (Yellw/Straw) Urine Clarity (Clear) Urine pH (5.0-8.5) Ur Specific [place] (1.002-1.035) Urine Protein (Neg-Trace) mg/dL Urine Glucose (UA) (Negative) mg/dL Urine Ketones (Negative) mg/dL Urine Occult Blood (Negative) Urine Nitrate (Negative) Urine Bilirubin (Negative) Urine Urobilinogen (Less than 2) mg/dL Ur Leukocyte Esterase (Negative) Urine RBC (0-3) /hpf Urine WBC (0-5) /hpf Ur Squamous Epith Cells (0-5) /hpf Urine Bacteria (None) /hpf Hyaline Casts (0-3) /lpf Urine Mucus (Occasional) /lpf Micro UA Comment Ur Microscopic Review Urine Culture Comments Urine Opiates Screen (Neg) Ur Barbiturates Screen (Neg) Valproic Acid Less than 3 L (50-100) mcg/mL Ur Amphetamines Screen (Neg) U Benzodiazepines Scrn (Neg) Urine Cocaine Screen (Neg) U Cannabinoids Screen (Neg) Serum Alcohol Less than 3 (0-5) mg/dL 05/16/18 05/16/18 05/17/18 Range/Units 19:27 19:27 17:30 WBC (4.0-11.0) th/mm3 RBC (4.00-5.30) mil/mm3 Hgb (11.6-15.3) gm/dL Hct (35.0-46.0) % MCV (80.0-100.0) fL MCH (27.0-34.0) pg MCHC (32.0-36.0) % RDW (11.6-17.2) % Plt Count (150-450) th/mm3 MPV (7.0-11.0) fL Neut % (Auto) (16.0-70.0) % Lymph % (Auto) (9.0-44.0) % [place] % (Auto) (0.0-8.0) % Eos % (Auto) (0.0-4.0) % Baso % (Auto) (0.0-2.0) % Neut # (Auto) (1.8-7.7) th/mm3 Lymph # (Auto) (1.0-4.8) th/mm3 [place] # (Auto) (0.0-0.9) th/mm3 Eos # (Auto) (0.0-0.4) th/mm3 Baso # (Auto) (0.0-0.2) th/mm3 WBC Differential Differential Comment Sodium (136-145) meq/L Potassium (3.5-5.1) meq/L Chloride (98-107) meq/L Carbon Dioxide (21.0-32.0) meq/L Anion Gap (5-15) meq/L BUN (7-18) mg/dL Creatinine (0.50-1.00) mg/dL Estimated GFR (>89) mL/min Random Glucose (74-106) mg/dL Calcium (8.5-10.1) mg/dL Magnesium (1.5-2.5) mg/dL Total Bilirubin (0.2-1.0) mg/dL AST (15-37) U/L ALT (10-53) U/L Alkaline Phosphatase (45-117) U/L Total Protein (6.4-8.2) g/dL Albumin (3.4-5.0) g/dL TSH (0.358-3.740) uIU/mL Urine Color Yellow Yellow (Yellw/Straw) Urine Clarity Cloudy H Clear (Clear) Urine pH 6.0 6.0 (5.0-8.5) Ur Specific [place] 1.005 1.008 (1.002-1.035) Urine Protein Negative Negative (Neg-Trace) mg/dL Urine Glucose (UA) Negative Negative (Negative) mg/dL Urine Ketones Negative Negative (Negative) mg/dL Urine Occult Blood Small H Negative (Negative) Urine Nitrate Negative Negative (Negative) Urine Bilirubin Negative Negative (Negative) Urine Urobilinogen Less than 2 Less than 2 (Less than 2) mg/dL Ur Leukocyte Esterase Large H Small H (Negative) Urine RBC 2 1 (0-3) /hpf Urine WBC 84 H 15 H (0-5) /hpf Ur Squamous Epith Cells 4 (0-5) /hpf Urine Bacteria Occasional H (None) /hpf Hyaline Casts 10 (0-3) /lpf Urine Mucus Few H Few H (Occasional) /lpf Micro UA Comment Culture indicated Ur Microscopic Review Not Reportable Not Reportable Urine Culture Comments Culture indicated Urine Opiates Screen Neg (Neg) Ur Barbiturates Screen Neg (Neg) Valproic Acid (50-100) mcg/mL Ur Amphetamines Screen Neg (Neg) U Benzodiazepines Scrn Neg (Neg) Urine Cocaine Screen Neg (Neg) U Cannabinoids Screen Neg (Neg) Serum Alcohol (0-5) mg/dL Discharge Plan Discharge Disposition Patient Disposition: 30 Still Patient Discharge Condition Condition: Fair Discharge Details Diagnosis: Acute UTI, Bipolar 1 disorder Physicians Team ED Provider: Santos Thompson ED Midlevel Provider: Kenna Bergman Primary Care Provider: UNKNOWN, Attending Provider: Julian Brown Other Providers: Minda Fuentes Status ED Status: Left Department Discharge Information Discharge Date/Time: 05/17/18 13:31
[2018-05-16 18:50] LABS: Baso # (Auto) 0.1 th/mm3 (0.0-0.2); Baso % (Auto) 0.8 % (0.0-2.0); Eos % (Auto) 0.4 % (0.0-4.0); Hematocrit 33.4 % (35.0-46.0); Hemoglobin 11.3 gm/dL (11.6-15.3); Lymph # (Auto) 1.3 th/mm3 (1.0-4.8); Lymph % (Auto) 13.2 % (9.0-44.0); Mean Corpuscular HGB Conc 33.9 % (32.0-36.0); Mean Corpuscular Hemoglobin 30.1 pg (27.0-34.0); Mean Corpuscular Volume 88.7 fL (80.0-100.0); Mean Platelet Volume 7.9 fL (7.0-11.0); Mono % (Auto) 10.3 % (0.0-8.0); Neut # (Auto) 7.7 th/mm3 (1.8-7.7); Neut % (Auto) 75.3 % (16.0-70.0); Platelet Count 526 th/mm3 (150-450); Red Blood Count 3.77 mil/mm3 (4.00-5.30); Red Cell Distribution Width 14.2 % (11.6-17.2); White Blood Count 10.2 th/mm3 (4.0-11.0)
[2018-05-16 19:57] LABS: Bacteria,Urine Occasional /hpf; Bilirubin,Urine Negative (Negative); Clarity,Urine Cloudy (Clear); Color,Urine Yellow (Yellw/Straw); Glucose,Urine (UA) Negative (Negative); Hyaline Casts,Urine 10 /lpf (0-3); Leukocyte Esterase,Urine Large (Negative); Mucus,Urine Few /lpf (Occasional); Nitrite,Urine Negative (Negative); Specific Gravity,Urine 1.005 (1.002-1.035); Squamous Epithelial Cell,Urine 4 /hpf (0-5)
[2018-05-16 19:59] LABS: Amphetamine Screen,Urine Neg (Neg); Barbiturate Screen,Urine Neg (Neg); Cannabinoid Screen,Urine Neg (Neg); Cocaine Screen,Urine Neg (Neg)
[2018-05-16 20:05] LABS: Opiate Screen,Urine Neg (Neg)
[2018-05-16 20:14] LABS: Albumin 3.8 g/dL (3.4-5.0); Anion Gap 10 meq/L (5-15); Aspartate Aminotransferase 24 U/L (15-37); Blood Urea Nitrogen 10 mg/dL (7-18); Calcium 8.8 mg/dL (8.5-10.1); Carbon Dioxide 26.6 meq/L (21.0-32.0); Chloride 98 meq/L (98-107); Glomerular Filtration Rate 69 mL/min (>89); Glucose,Random 116 mg/dL (74-106); Magnesium 1.6 mg/dL (1.5-2.5); Potassium 3.3 meq/L (3.5-5.1); Sodium 135 meq/L (136-145)
[2018-05-16 20:15] LABS: Alanine Aminotransferase 32 U/L (10-53)
[2018-05-16 20:25] LABS: Alkaline Phosphatase 107 U/L (45-117); Total Protein 7.6 g/dL (6.4-8.2)
--- NOTE | 2018-05-17 12:07 | P.PNPSY ---
History of Present Illness HPI Narrative: 67-year-old, , , female, with history of bipolar disorder,mre, manic, discharged from our inpatient psychiatric unit on May 11, 2018, who presents to emergency department as a Cook act initiated by law enforcement. The report alleges that the patient arrived at the [facility] via a taxi. Once at the airport she removed her shoes and began talking at a loud tone which raise concerns by other passengers and employees. She was said to be talking to herself cussing and screaming. She left her bags unattended by the counter pocket trimmer and went to the bathroom. She stated she had a flight out of [place] to [place] but they confirmed that no such flight existed after checking with the airlines. She continued to speak at a high voice level making no sense. She reported to the police she had not been taking her medications. EMR reviewed. As stated previously patient recently discharge after being treated for a manic episode. Patient has been diagnosed with UTI and has begun on treatment here in the ED. Current VPA level is pending. Patient is seen in the ED. She has wrapped herself in multiple blankets in the ED room. She has thrown some of her food as well as other papers all over her ED room as well. She is hyperverbal, tangential, difficult interrupting her speech. her mood is elated. She states " my grandson committed suicide in November , I want you to call the [employer] where I work and get rooms for bike week , I went to the airport because I am going to see my daughter who is thinking about committing suicide, the police are my POA. I was told not to talk to anyone about my mental illness. I have just finished rearranging all the furniture of my apartment". She states she has not been sleeping and that "I do not want to sleep I do want to get you to give me a sleeping pill". Patient will be admitted to inpatient psychiatry for stabilization, safety, as well as to re-start her psychiatric medications. I attempted to contact her daughter Rafael at [phone]. No answer. Generic message left.
[2018-05-17] MEDS ORDERED: Melatonin 5 MG Tablet PO PRN (12:21)
[2018-05-17] MEDS: amLODIPine 10 MG Tablet PO SCH (13:08)
--- NOTE | 2018-05-17 16:31 | P.HP ---
History of Present Illness Primary Care Physician: UNKNOWN History of Present Illness: 67-year-old white female being admitted to inpatient psychiatry for acute psychotic/manic episode, medicine has been consulted from medical management.. Was found at the airport making is seen, trying to board a flight that did not exist. liaison officer declared Cook act and brought the patient to the hospital. History is very difficult to obtain from the patient regarding any acute issues, she will not stop talking, has pressured speech, very tangential from topic to topic. When I asked her about any acute symptoms she immediately alludes to her past medical history. In the emergency department she had provided a clean-catch urine sample which was suspicious for urinary tract infection and was given a dose of Rocephin. UDS was negative in the emergency department, CMP unremarkable except for very minimal hypokalemia. Patient was just discharged from the inpatient psych [facility] a few weeks ago. Inpatient psychiatry nurse has contacted the patient's pharmacy, scripts were called in from previous discharge however the patient did not pick any of them up -including her psychiatric meds. Unable to obtain family history from most recent medical records, patient not reliable historian. Inpatient Certification: I certify that the inpatient services were ordered in accordance with Medicare regulations governing the order. This includes certification that hospital inpatient services are reasonable and necessary and in the case of services not specified as inpatient-only under 42 CFR 419.22(n), that they are appropriately provided as inpatient services in accordance to with the 2-midnight benchmark under 43 CFR 412.3(e) Estimated Total Length of Stay (Days): 8 Plans for Post Hospital Care: Not yet determined Review of Systems All other systems reviewed negative except as stated in HPI PMFSH - History History Provided By: Patient - Medical History Medical History: Medical History (Last Reviewed 05/17/18 @ 16:27 by Parker Dumont MD) Bipolar disorder HLD (hyperlipidemia) History of frequent urinary tract infections Hypertension Leaky heart valve Pancreatitis - Surgical History Surgical History: Surgical History (Last Reviewed 05/17/18 @ 16:27 by Parker Dumont MD) Hx of breast lump removal - Social History I have reviewed the patient's Social History: Yes - Tobacco History Second Hand Smoke Exposure: No Tobacco Use In Past 30 Days: No Smoking Status: Former smoker Tobacco Type: Cigarettes - Alcohol History How Often Do You Have a Drink Containing Alcohol: 2 to 3 times a week - Substance Use History Substance History: No History of Abuse - Travel History Recent Travel in the [place] Within the Last 8 Weeks: No Recent Travel Out of the Country Within the Last 8 Weeks: No - Immunization History Tetanus Immunization: Unsure Medications and Allergies Active Medications: Active Medications Al Hydrox/Mg Hydrox/Simethicone (Mag-Al Plus Susp Liq) 30 ml PO Q6H PRN PRN Reason: DYSPEPSIA Amlodipine Besylate (Norvasc) 10 mg PO DAILY [facility] Last Admin: 05/17/18 13:08 Dose: 10 mg Lorazepam (Ativan Inj) 0.5 mg IM Q12H PRN PRN Reason: MODERATE TO SEVERE ANXIETY Melatonin (Melatonin) 5 mg PO HS PRN PRN Reason: INSOMNIA Allergies Allergy/AdvReac Type Severity Reaction Status Date / Time No Known Allergies Allergy Verified 05/16/18 17:30 Exam Vital signs: Vital Signs 05/16/18 17:30 05/16/18 18:24 05/16/18 21:19 Temperature 99.3 F Pulse Rate 145 H 118 H 115 H Respiratory Rate 18 22 20 Blood Pressure 195/110 H 128/67 130/90 Pulse Oximetry 97 98 100 05/17/18 06:20 05/17/18 09:45 Temperature Pulse Rate 97 H 109 H Respiratory Rate 18 Blood Pressure 159/71 H 175/84 H Pulse Oximetry 99 Intake & Output 05/16/18 05/17/18 05/17/18 18:59 06:59 18:59 Intake Total 2099 Balance 2099 Weight 77.111 kg 73.7 kg Intake: IV 2099 NS Inj 1,000 ML @ 1000 mls/hr 1999 IV.SIG BOLUS [facility] Rx#:[id number] Rocephin Inj 2,000 MG In NS Inj 100 / 100 100 ML @ 200 mls/hr IV.SIG ONCE ONE Rx#:[id number] Other: Weight On Admission 73.7 kg Narrative: VS: afebrile GENERAL: Patient awake and alert, SKIN: Warm and dry. EYES: No scleral icterus. No injection or drainage. ENT: No nasal bleeding or discharge. Mucous membranes pink and moist. CARDIOVASCULAR: Regular rate and rhythm. no murmurs RESPIRATORY: No accessory muscle use. Clear to auscultation. Breath sounds equal bilaterally. GASTROINTESTINAL: Abdomen soft, non-tender, nondistended. : No juli CVA ttp BL, no suprapubic TTP Extremities: No clubbing, cyanosis, or edema. No obvious deformities. MUSCULOSKELETAL: adequate muscle bulk and tone for age and habitus NEUROLOGICAL: Awake and alert. No obvious cranial nerve deficits. No facial droop nor slurred speech noted. PSYCHIATRIC: Demonstrating profound pressured speech Results - Labs CBC & Chem 7: 05/16/18 18:16 05/16/18 19:23 Labs: Laboratory Results - last 24 hr 05/16/18 05/16/18 05/16/18 18:16 19:23 19:23 WBC 10.2 RBC 3.77 L Hgb 11.3 L Hct 33.4 L MCV 88.7 MCH 30.1 MCHC 33.9 RDW 14.2 Plt Count 526 H MPV 7.9 Neut % (Auto) 75.3 H Lymph % (Auto) 13.2 [place] % (Auto) 10.3 H Eos % (Auto) 0.4 Baso % (Auto) 0.8 Neut # (Auto) 7.7 Lymph # (Auto) 1.3 [place] # (Auto) 1.0 H Eos # (Auto) 0.0 Baso # (Auto) 0.1 WBC Differential . Differential Comment Auto diff final Sodium 135 L Potassium 3.3 L Chloride 98 Carbon Dioxide 26.6 Anion Gap 10 BUN 10 Creatinine 0.83 Estimated GFR 69 L Random Glucose 116 H Calcium 8.8 Magnesium 1.6 Total Bilirubin 0.3 AST 24 ALT 32 Alkaline Phosphatase 107 Total Protein 7.6 Albumin 3.8 TSH 2.630 Urine Color Urine Clarity Urine pH Ur Specific [place] Urine Protein Urine Glucose (UA) Urine Ketones Urine Occult Blood Urine Nitrate Urine Bilirubin Urine Urobilinogen Ur Leukocyte Esterase Urine RBC Urine WBC Ur Squamous Epith Cells Urine Bacteria Hyaline Casts Urine Mucus Micro UA Comment Ur Microscopic Review Urine Culture Comments Urine Opiates Screen Ur Barbiturates Screen Valproic Acid Less than 3 L Ur Amphetamines Screen U Benzodiazepines Scrn Urine Cocaine Screen U Cannabinoids Screen Serum Alcohol Less than 3 05/16/18 05/16/18 19:27 19:27 WBC RBC Hgb Hct MCV MCH MCHC RDW Plt Count MPV Neut % (Auto) Lymph % (Auto) [place] % (Auto) Eos % (Auto) Baso % (Auto) Neut # (Auto) Lymph # (Auto) [place] # (Auto) Eos # (Auto) Baso # (Auto) WBC Differential Differential Comment Sodium Potassium Chloride Carbon Dioxide Anion Gap BUN Creatinine Estimated GFR Random Glucose Calcium Magnesium Total Bilirubin AST ALT Alkaline Phosphatase Total Protein Albumin TSH Urine Color Yellow Urine Clarity Cloudy H Urine pH 6.0 Ur Specific [place] 1.005 Urine Protein Negative Urine Glucose (UA) Negative Urine Ketones Negative Urine Occult Blood Small H Urine Nitrate Negative Urine Bilirubin Negative Urine Urobilinogen Less than 2 Ur Leukocyte Esterase Large H Urine RBC 2 Urine WBC 84 H Ur Squamous Epith Cells 4 Urine Bacteria Occasional H Hyaline Casts 10 Urine Mucus Few H Micro UA Comment Culture indicated Ur Microscopic Review Not Reportable Urine Culture Comments Culture indicated Urine Opiates Screen Neg Ur Barbiturates Screen Neg Valproic Acid Ur Amphetamines Screen Neg U Benzodiazepines Scrn Neg Urine Cocaine Screen Neg U Cannabinoids Screen Neg Serum Alcohol Caprini VTE Risk Assessment Caprini VTE Risk Assessment: Moderate/High Risk (score >= 2) Caprini Risk Assessment Model: Point Value = 1 Point Value = 2 Point Value = 3 Point Value = 5 Age 41-60 Minor surgery BMI > 25 kg/m2 Swollen legs Varicose veins or History of unexplained or recurrent spontaneous Oral contraceptives or hormone replacement Sepsis (< 1 month) Serious lung disease, including pneumonia (< 1 month) Abnormal pulmonary function Acute myocardial infarction Congestive heart failure (< 1 month) History of inflammatory bowel disease Medical patient at bed rest Age 61-74 Arthroscopic surgery Major open surgery (> 45 min) Laparoscopic surgery (> 45 min) Malignancy Confined to bed (> 72 hours) Immobilizing plaster cast Central venous access Age >= 75 History of VTE Family history of VTE Factor V Leiden Prothrombin [id number] Lupus anticoagulant Anticardiolipin antibodies Elevated serum homocysteine Heparin-induced thrombocytopenia Other congenital or acquired thrombophilia Stroke (< 1 month) Elective arthroplasty Hip, pelvis, or leg fracture Acute spinal cord injury (< 1 month) Prophylaxis Regimen: Total Risk Factor Score Risk Level Prophylaxis Regimen 0-1 Low Early ambulation 2 Moderate Order ONE of the following: *Sequential Compression Device (SCD) *Heparin 5000 units SQ BID 3-4 Higher Order ONE of the following medications: *Heparin 5000 units SQ TID *Enoxaparin/Lovenox 40 mg SQ daily (WT < 150 kg, CrCl > 30 mL/min) *Enoxaparin/Lovenox 30 mg SQ daily (WT < 150 kg, CrCl > 10-29 mL/min) *Enoxaparin/Lovenox 30 mg SQ BID (WT < 150 kg, CrCl > 30 mL/min) AND/OR *Sequential Compression Device (SCD) 5 or more Highest Order ONE of the following medications: *Heparin 5000 units SQ TID (Preferred with Epidurals) *Enoxaparin/Lovenox 40 mg SQ daily (WT < 150 kg, CrCl > 30 mL/min) *Enoxaparin/Lovenox 30 mg SQ daily (WT < 150 kg, CrCl > 10-29 mL/min) *Enoxaparin/Lovenox 30 mg SQ BID (WT < 150 kg, CrCl > 30 mL/min) AND *Sequential Compression Device (SCD) Assessment and Plan - Plan Patient is a 67-year-old female admitted to inpatient psychiatry for acute manic /psychotic episode, hospitalist consulted for medical management. Acute manic/psychotic disturbance Likely secondary to noncompliance as VPA level un undetectable, may have been exacerbated with possible urinary tract infection -defer management to psychiatry including resumption of home mood stabilizers and antipsychotics include but not limited to Seroquel and Depakote. Possible urinary tract infection - Will re-order with cath urine to ensure to verify validity of microscopic pyuria noted on dirty catch, if so may need CT abd to r/o pyelonephritis although clinically she doesn't appear as such herson w/ lack of fevers Continue Rocephin, follow-up urine culture; if fevers emerge STAT ct abd with expansion of abx Hypertension Hyperlipidemia Hx of Cardiac valve insufficiency Continue home Norvasc, Lipitor, propranolol History of hyponatremia, possible SIADH Stable Na at this time -Continue home sodium chloride tablet 1 g daily Hypokalemia Mild, resume home potassium
[2018-05-17] MEDS ORDERED: amLODIPine 10 MG Tablet PO SCH (16:45)
[2018-05-17] MEDS: Sodium Chloride 1 GM Tablet PO SCH (18:35)
[2018-05-17 20:03] LABS: Bilirubin,Urine Negative (Negative); Clarity,Urine Clear (Clear); Color,Urine Yellow (Yellw/Straw); Glucose,Urine (UA) Negative (Negative); Leukocyte Esterase,Urine Small (Negative); Mucus,Urine Few /lpf (Occasional); Nitrite,Urine Negative (Negative); Specific Gravity,Urine 1.008 (1.002-1.035)
[2018-05-18] MEDS: Propranolol 40 MG Tablet PO SCH ×4 (00:21→21:11)
[2018-05-18] MEDS ORDERED: cefTRIAXone Inj 1,000 MG Vial IV.SIG SCH (09:00)
[2018-05-18] MEDS ORDERED: cefTRIAXone Inj 1,000 MG Vial IM SCH (09:00)
[2018-05-18] MEDS: Sodium Chloride 1 GM Tablet PO SCH ×2 (09:08→21:12)
[2018-05-18] MEDS: Folic Acid 1 MG Tablet PO SCH (09:08)
[2018-05-18] MEDS: amLODIPine 10 MG Tablet PO SCH (09:09)
[2018-05-18 09:42] LABS: Anion Gap 10 meq/L (5-15); Blood Urea Nitrogen 7 mg/dL (7-18); Carbon Dioxide 26.5 meq/L (21.0-32.0); Chloride 92 meq/L (98-107); Cholesterol 143 mg/dL (120-200); Glomerular Filtration Rate Greater Than 89 mL/min (>89); Glucose,Random 122 mg/dL (74-106); Potassium 3.7 meq/L (3.5-5.1); Sodium 128 meq/L (136-145)
[2018-05-18 09:46] LABS: Chol/HDL Ratio 2.72 Ratio; HDL Cholesterol 52.5 mg/dL (40.0-60.0); LDL Cholesterol,Calculated 62 mg/dL (0-99); Triglycerides 142 mg/dL (42-150)
--- NOTE | 2018-05-18 11:03 | P.TTN ---
- Patient Problems Problems: 1. Discharge planning 2. Medication compliance 3. Knowledge deficit 4. Lack of coping skills - Progress Toward Goals Provider Present: Dr. Erin Brown Provider Input: 05/18/18: Pt is newly returned to unit from recent d/c. Pt's spouse is at [facility]. Disposition plan has not been determined as yet, plof was pt living at home. - Discharge Plan 05/18/18: Pt is newly returned to unit from recent d/c. Pt's spouse is at [facility]. Disposition plan has not been determined as yet, plof was pt living at home. - Documentation Teaching Recipient: Patient
[2018-05-18] MEDS: Ciprofloxacin 200 MG/100 ML 200 MG/100 ML PIGGYBACK IV.SIG SCH (11:57)
--- NOTE | 2018-05-18 12:03 | P.TTN ---
- Patient Problems Problems: 1. Discharge planning 2. Medication compliance 3. Knowledge deficit 4. Lack of coping skills - Progress Toward Goals Provider Present: Dr. Erin Brown Provider Input: 05/18/18: Pt is newly returned to unit from recent d/c. Pt's spouse is at [facility]. Disposition plan has not been determined as yet, plof was pt living at home. Nurse(s) Present: RN Nurse Input: 05/18/2018; patient is new being assess for medical and mental health Psychiatric Counselors Present: Martina Oden [facility] Psychiatric Therapist Input: 05/18/2018; patient dc planning will be staff to determine what has to be in place prior to dc Group Spec/RT/OT/MAYS Present: TABATHA Brewer Group Spec/RT/OT/MAYS Input: 05/18/2018; patient will be orientated with groups and activities - Discharge Plan 05/18/18: Pt is newly returned to unit from recent d/c. Pt's spouse is at [facility]. Disposition plan has not been determined as yet, plof was pt living at home. - Documentation Teaching Recipient: Patient
[2018-05-18] MEDS ORDERED: Acetaminophen 325 MG Tablet PO PRN (16:49)
--- NOTE | 2018-05-18 16:53 | P.HPPSY ---
Provisional Diagnosis Admission Date: May 17, 2018 12:21 [place] I.: Bipolar affective disorder recurrent severe most recent episode alison with psychotic features Competence Certification of Person's Competence To Provide Express and Informed Consent I have personally examined Mary Pollard, a person being served at [facility] on, May 18, 2018 1651. Express and informed consent means consent voluntarily given in writing, by a competent person, after sufficient explanation and disclosure of the subject matter involved to enable the person to make a knowing and willful decision without any element of force, fraud, deceit, duress, or other form of constraint or coercion. This person is 18 years of age or older, is not now known to be incompetent to consent to treatment with a guardian advocate, and does not have a health care surrogate or proxy currently making medical treatment decisions. I have found this person to be one of the following: [] Competent to provide express and informed consent, as defined above, for voluntary admission to this facility and is competent to provide express and informed consent for treatment. He/she has the consistent capacity to make well reasoned, willful, and knowing decisions concerning his or her medical or mental health treatment. The person fully and consistently understands the purpose of the admission for examination/placement and is fully capable of personally exercising all rights assured under [place]] Incompetent to provide express and informed consent to voluntary admission, and this is incompetent to provide express and informed consent to treatment. The person must be transferred to involuntary status and a petition for a guardian advocate filed with the Circuit Court. [] Refusing to provide express and informed consent to voluntary admission but is competent to provide express and informed consent for treatment. The person must be discharged or transferred to involuntary status. Form shall be completed within 24 hours of a person's arrival at the receiving facility and filed in the clinical record of each person: 1. Admitted on a voluntary basis 2. Permitted to provide express and informed consent to his/her own treatment 3. Allowed to transfer from involuntary to voluntary status 4. Prior to permitting a person to consent to his or her own treatment after having been previously found incompetent to consent to treatment. History of Present Illness Capacity: Lacks capacity Chief Complaint: Patient manic psychotic delusional History of Present Illness: Patient is 67-year-old white female recently hospitalized here 04/25 through he was discharged to home with referral for home health care. She had been compliant with her medications and her treatment she comes here today under Cook act by the [facility]'s office dated 05/16/2018 at 1840 hrs. This document reviewed essentially says Eren Yoon arrived at the [facility] via taxi service once at the airport [place] removed her shoes and began talking at an elevated level and in which raised concerns by customers and employees. She was said to be talking to herself cussing and screaming. Contact was made with her near the woman's room after leaving her bags and attended by the ticket counters. Color stated she had a flight out of [place] to no work. The sad flight did not exist after checking with the airlines. Allison continue to speak at a higher voice level making no sense of reality to Deputy Omar shabazz. When asked if she suffered from a mental illness she replied yes bipolar and had not been taking her medication. Breanne does not have any immediate area caregivers in which could be contacted by deputy paiz. Based upon her current mental awareness, talk without care and treatment would suffer possible harm she was transported to [facility] for evaluation. Patient was seen screen in the ED Depakote level less than 3 urine toxicology negative. Patient initially transported 2600 she was found to have a significant symptomatic urinary tract infection was transferred to 4 E. Patient seen by me on 4 E. sitting in a Ksenia chair in the dayroom. She continues quite disorganized confused tangential and circumstantial in her speech. She did recognize me and did recognize to the medical student. Test for confidentiality and have the nurse came in as a witness. She initially stated she would not talk about having her athletic equipment manager and the theatre manager present. She said she did go back to her home went into a convoluted story about buying her furniture of the various inheritance and money that she received. Then walking and taking a cab to the airport because she had to get to [place] to see her daughter. Patient states she is compliant with the medication but the Depakote level that low like daughter compliance and her honesty. She continues manic psychotic delusional angry irritable and paranoid. At this time she does meet Cook act criteria although first opinion request second opinion also feels she does not have capacity I will ask for healthcare surrogate and guardian advocate. We will continue meds for the med reconciliation. I have also done the initial psychiatric template orders - Inpatient Certification I certify that the inpatient services were ordered in accordance with Medicare regulations governing the order. This includes certification that hospital inpatient services are reasonable and necessary and in the case of services not specified as inpatient-only under 42 CFR 419.22(n), that they are appropriately provided as inpatient services in accordance to with the 2-midnight benchmark under 43 CFR 412.3(e) I certify that inpatient psychiatric hospital services are medically necessary. Evaluation and treatment and/or diagnostic testing are expected to improve the patient's condition. The patient needs on a daily basis, active treatment furnished directly by or requiring the supervision of inpatient psychiatric facility personnel. Estimated Total Length of Stay (Days): 8 Plans for Post Hospital Care: Not yet determined Review of Systems All other systems reviewed negative except as stated in HPI PMFSH - History History Provided By: Patient - Medical / Surgical Hx Neg / Unobtainable Medical Problems Denied: Unable to Obtain Surgical History: Unable to Obtain - Medical History Medical History: Medical History (Last Reviewed 05/18/18 @ 16:59 by Julian Brown MD) Bipolar disorder HLD (hyperlipidemia) History of frequent urinary tract infections Hypertension Leaky heart valve Pancreatitis - Surgical History Surgical History: Surgical History (Last Reviewed 05/18/18 @ 16:59 by Julian Brown MD) Hx of breast lump removal - Social History I have reviewed the patient's Social History: Yes - Tobacco History Second Hand Smoke Exposure: No Tobacco Use In Past 30 Days: No Smoking Status: Former smoker Tobacco Type: Cigarettes - Alcohol History How Often Do You Have a Drink Containing Alcohol: 2 to 3 times a week - Substance Use History Substance History: No History of Abuse - Travel History Recent Travel in the USA Within the Last 8 Weeks: No Recent Travel Out of the Country Within the Last 8 Weeks: No - Immunization History Tetanus Immunization: Unsure Quality Measures - Psychiatric History Psychological trauma history: Patient refuses to answer due to her alison and psychosis Violence risk to others in the last 6 months: Patient refuses to answer due to her psychosis and alison Violence risk to self in the last 6 months: Patient did deny suicidality - Substance Abuse History Drug or alcohol use in the past 12 months: Patient denies - Patient Strengths Patient's strengths (minimum of 2): Patient verbal able [place] [facility] Medications and Allergies Active Medications: Active Medications Acetaminophen (Tylenol) 650 mg PO Q4H PRN PRN Reason: Pain 1-5 or Temp >101F Al Hydrox/Mg Hydrox/Simethicone (Mag-Al Plus Susp Liq) 30 ml PO Q6H PRN PRN Reason: DYSPEPSIA Al Hydroxide/Mg Hydroxide (Milk Of Magnesia Liq) 30 ml PO Q12H PRN PRN Reason: Mild Constipation Amlodipine Besylate (Norvasc) 10 mg PO DAILY [facility] Last Admin: 05/18/18 09:09 Dose: 10 mg Aspirin (Ecotrin) 81 mg PO DAILY [facility] Last Admin: 05/18/18 09:08 Dose: 81 mg Atorvastatin Calcium (Lipitor) 40 mg PO DAILY [facility] Last Admin: 05/18/18 09:08 Dose: 40 mg Divalproex Sodium (Depakote Er) 500 mg PO BID [facility] Fluticasone Propionate (Flonase Nasal [place]) 1 spray NASAL BID [facility] Last Admin: 05/18/18 09:50 Dose: 1 spray Folic Acid (Folic Acid) 1 mg PO DAILY [facility] Last Admin: 05/18/18 09:08 Dose: 1 mg Hydroxyzine HCl (Atarax) 50 mg PO Q6H PRN PRN Reason: ANXIETY Ciprofloxacin/Dextrose (Cipro 200 Mg/100 Ml Inj) 200 mg in 100 mls @ 100 mls/ hr IV.SIG Q12H [facility] Last Admin: 05/18/18 11:57 Dose: 100 mls/hr Pantoprazole Sodium (Protonix) 40 mg PO DAILY [facility] Potassium Chloride (Klor-Con 10) 10 meq PO DAILY [facility] Last Admin: 05/18/18 09:08 Dose: 10 meq Propranolol HCl (Inderal) 40 mg PO BID [facility] Last Admin: 05/18/18 09:08 Dose: 40 mg Quetiapine Fumarate (Seroquel) 100 mg PO TID [facility] Sodium Chloride (Sodium Chloride) 1 gm PO BID [facility] Allergies Allergy/AdvReac Type Severity Reaction Status Date / Time No Known Allergies Allergy Verified 05/16/18 17:30 Results - Labs CBC & Chem 7: 05/16/18 18:16 05/18/18 08:46 Labs: Laboratory Results - last 24 hr 05/17/18 05/18/18 17:30 08:46 Sodium 128 L Potassium 3.7 Chloride 92 L Carbon Dioxide 26.5 Anion Gap 10 BUN 7 Creatinine 0.58 Estimated GFR Greater than 89 Random Glucose 122 H Calcium 9.0 Triglycerides 142 Cholesterol 143 LDL Cholesterol, Calc 62 HDL Cholesterol 52.5 Cholesterol/HDL Ratio 2.72 Urine Color Yellow Urine Clarity Clear Urine pH 6.0 Ur Specific [place] 1.008 Urine Protein Negative Urine Glucose (UA) Negative Urine Ketones Negative Urine Occult Blood Negative Urine Nitrate Negative Urine Bilirubin Negative Urine Urobilinogen Less than 2 Ur Leukocyte Esterase Small H Urine RBC 1 Urine WBC 15 H Urine Mucus Few H Ur Microscopic Review Not Reportable Exam Vital signs: Vital Signs 05/17/18 20:00 05/18/18 05:27 05/18/18 07:53 Temperature 98.7 F 99.7 F H 99.4 F Pulse Rate 92 H 72 Respiratory Rate 18 18 Blood Pressure 159/77 H 122/76 Pulse Oximetry 98 96 Intake & Output 05/17/18 05/18/18 05/18/18 18:59 06:59 18:59 Intake Total 480 / 480 Balance 480 / 480 Weight 73.7 kg 74.3 kg Intake: Oral 480 / 480 Other: Weight On Admission 73.7 kg Narrative: Patient sitting quietly in day room she is in no acute distress, she is in no respiratory distress, no complaints or chest pain or abdominal pain. Patient moving all 4 extremities without difficulty Mental Status Examination Appearance: Appropriate, Disheveled (Mildly) Consciousness: Alert Orientation: Person, Place, Situation Motor Activity: Normal gait Speech: Pressured, Rapid Language: Perseveration Fund of Knowledge: Adequate Attention and Concentration: Easily distracted Memory: Impaired Mood: Irritable, Manic Affect: Other (Marked increased range and intensity) Thought Process & Associations: Loose associations, Disorganized Thought Content: Bizarre thinking, Delusional Hallucination Type: None Delusion Type: Paranoid Suicidal Ideation: No Suicidal Plan: No Suicidal Intention: No Homicidal Ideation: No Homicidal Plan: No Homicidal Intention: No Insight: Poor Judgment: Poor Assessment and Plan - Assessment (1) Bipolar affective disorder, currently manic, severe, with psychotic features Code(s): F31.2 - Bipolar disorder, current episode manic severe with psychotic features Status: Acute - Plan Plan: Estimated LOS: [] days Patient remains quite manic and psychotic. At this point feel she does not have capacity I will ask for healthcare surrogate and guardian advocate along with doing a first opinion. Will have hospitalist consult will this also Justification for Continued Inpatient Stay: At this time patient with decompensated placed on a lower level of care Discharge Planning: To be determined Request Healthcare Surrogate/Guardian Advocate?: Yes
--- NOTE | 2018-05-18 17:04 | P.PN ---
Subjective Interval history: Follow-up visit for hyponatremia and UTI. Patient is seen and examined in the day room in no acute distress. She does continue to complain of back pain and states that she has not received anything for this. She denies any fevers, chills, dysuria, cough, shortness of breath or chest pain. She reports that the psychiatrist "is considering believing her". Staff does not report any acute events or concerns. Physical Exam Vital signs: Vital Signs 05/17/18 20:00 05/18/18 05:27 05/18/18 07:53 Temperature 98.7 F 99.7 F H 99.4 F Pulse Rate 92 H 72 Respiratory Rate 18 18 Blood Pressure 159/77 H 122/76 Pulse Oximetry 98 96 Intake & Output 05/17/18 05/18/18 05/18/18 18:59 06:59 18:59 Intake Total 480 / 480 Balance 480 / 480 Weight 73.7 kg 74.3 kg Intake: Oral 480 / 480 Other: Weight On Admission 73.7 kg Narrative: GENERAL: Patient awake and alert, in no acute distress. SKIN: Warm and dry. EYES: No scleral icterus. No injection or drainage. ENT: No nasal bleeding or discharge. Mucous membranes pink and moist. CARDIOVASCULAR: Regular rate and rhythm. no murmurs RESPIRATORY: No accessory muscle use. Clear to auscultation. Breath sounds equal bilaterally. GASTROINTESTINAL: Abdomen soft, non-tender, nondistended. : No CVA tenderness, no suprapubic tenderness. Extremities: No clubbing, cyanosis, or edema. No obvious deformities. MUSCULOSKELETAL: Moving all extremities without difficulty. NEUROLOGICAL: Awake and alert. No obvious cranial nerve deficits. No facial droop nor slurred speech noted. PSYCHIATRIC: Pressured speech. Results - Labs CBC & Chem 7: 05/16/18 18:16 05/18/18 08:46 Laboratory Results - last 24 hr 05/17/18 05/18/18 17:30 08:46 Sodium 128 L Potassium 3.7 Chloride 92 L Carbon Dioxide 26.5 Anion Gap 10 BUN 7 Creatinine 0.58 Estimated GFR Greater than 89 Random Glucose 122 H Calcium 9.0 Triglycerides 142 Cholesterol 143 LDL Cholesterol, Calc 62 HDL Cholesterol 52.5 Cholesterol/HDL Ratio 2.72 Urine Color Yellow Urine Clarity Clear Urine pH 6.0 Ur Specific [place] 1.008 Urine Protein Negative Urine Glucose (UA) Negative Urine Ketones Negative Urine Occult Blood Negative Urine Nitrate Negative Urine Bilirubin Negative Urine Urobilinogen Less than 2 Ur Leukocyte Esterase Small H Urine RBC 1 Urine WBC 15 H Urine Mucus Few H Ur Microscopic Review Not Reportable Microbiology 05/17/18 17:30 Catheterized Urine Urine Culture - Preliminary No growth in 24 hours 05/16/18 19:27 Clean Catch Urine Urine Culture - Final Pseudomonas aeruginosa Assessment and Plan - Plan Patient is a 67-year-old female admitted to inpatient psychiatry for acute manic /psychotic episode, hospitalist consulted for medical management. Acute manic/psychotic disturbance Likely secondary to noncompliance as VPA level un undetectable, may have been exacerbated with possible urinary tract infection -defer management to psychiatry Possible urinary tract infection -UA positive for Pseudomonas aeruginosa, montoya sensitive. Treat with IV Cipro, likely transition to p.o. tomorrow. Low-grade temp this morning 99.7 Hypertension Hyperlipidemia Hx of Cardiac valve insufficiency Continue home Norvasc, Lipitor, propranolol History of hyponatremia, possible SIADH Na 135-->128, increase sodium tab to BID Hypokalemia, resolved DVT prophylaxisambulation Discussed Condition With: Patient and nursing staff
[2018-05-18 18:25] LABS: Hemoglobin A1c 5.2 % (4.3-6.0)
[2018-05-18] MEDS: QUEtiapine 100 MG Tablet PO SCH (18:37)
[2018-05-18] MEDS: Divalproex 500 MG ER Tablet PO SCH (21:11)
--- NOTE | 2018-05-19 08:52 | P.CONPSY ---
Provisional Diagnosis Admission Date: May 17, 2018 12:21 [place] I.: Bipolar affective disorder recurrent severe most recent episode alison with psychotic features History of Present Illness Service: Psychiatry Consult date: 05/19/18 Requesting Physician: Julian Brown Reason for Consult: Second opinion Primary Care Provider: UNKNOWN History of Present Illness: Patient is a 67-year-old woman who carries a diagnosis of bipolar disorder, recent discharge on 05/10/18 and recently brought in by police officers under Cook act as patient was found to be at the airport talking and elevated level, talking to self and admitted to noncompliance of medications which patient was admitted to the inpatient psychiatry unit for further evaluation and management. Discussion with nursing staff reported the patient was hyperverbal last evening and upon evaluation today patient also noted to be with pressured speech, with tangentiality and flight of ideas. Patient states that she was worried about calling her so she could about her income and states that she had not been sleeping after her last discharge stating that she had been up all night trying to "sort things out". Patient also noted to have some irritability during interview was somewhat disorganized and hyperverbal. Patient spent much time focused on financial issues and with poor insight. Patient denies any perceptual disturbances. Review of Systems All other systems reviewed negative except as stated in HPI PMFSH - History History Provided By: Patient, Medical Record - Medical / Surgical Hx Neg / Unobtainable Medical Problems Denied: Unable to Obtain - Medical History Medical History: Medical History (Last Reviewed 05/18/18 @ 16:59 by Julian Brown MD) Bipolar disorder HLD (hyperlipidemia) History of frequent urinary tract infections Hypertension Leaky heart valve Pancreatitis - Surgical History Surgical History: Surgical History (Last Reviewed 05/18/18 @ 16:59 by Julian Brown MD) Hx of breast lump removal - Tobacco History Second Hand Smoke Exposure: No Tobacco Use In Past 30 Days: No Smoking Status: Former smoker Tobacco Type: Cigarettes - Alcohol History How Often Do You Have a Drink Containing Alcohol: 2 to 3 times a week - Substance Use History Substance History: No History of Abuse - Travel History Recent Travel in the [place] Within the Last 8 Weeks: No Recent Travel Out of the Country Within the Last 8 Weeks: No - Immunization History Tetanus Immunization: Unsure Medications and Allergies Active Medications: Active Medications Acetaminophen (Tylenol) 650 mg PO Q4H PRN PRN Reason: Pain 1-5 or Temp >101F Al Hydrox/Mg Hydrox/Simethicone (Mag-Al Plus Susp Liq) 30 ml PO Q6H PRN PRN Reason: DYSPEPSIA Al Hydroxide/Mg Hydroxide (Milk Of Magnesia Liq) 30 ml PO Q12H PRN PRN Reason: Mild Constipation Amlodipine Besylate (Norvasc) 10 mg PO DAILY [facility] Last Admin: 05/18/18 09:09 Dose: 10 mg Aspirin (Ecotrin) 81 mg PO DAILY [facility] Last Admin: 05/18/18 09:08 Dose: 81 mg Atorvastatin Calcium (Lipitor) 40 mg PO DAILY [facility] Last Admin: 05/18/18 09:08 Dose: 40 mg Divalproex Sodium (Depakote Er) 500 mg PO BID [facility] Last Admin: 05/18/18 21:11 Dose: 500 mg Fluticasone Propionate (Flonase Nasal [place]) 1 spray NASAL BID [facility] Last Admin: 05/18/18 21:12 Dose: 1 spray Folic Acid (Folic Acid) 1 mg PO DAILY [facility] Last Admin: 05/18/18 09:08 Dose: 1 mg Hydroxyzine HCl (Atarax) 50 mg PO Q6H PRN PRN Reason: ANXIETY Ciprofloxacin/Dextrose (Cipro 200 Mg/100 Ml Inj) 200 mg in 100 mls @ 100 mls/ hr IV.SIG Q12H [facility] Last Admin: 05/18/18 11:57 Dose: 100 mls/hr Pantoprazole Sodium (Protonix) 40 mg PO DAILY [facility] Potassium Chloride (Klor-Con 10) 10 meq PO DAILY [facility] Last Admin: 05/18/18 09:08 Dose: 10 meq Propranolol HCl (Inderal) 40 mg PO BID [facility] Last Admin: 05/18/18 21:11 Dose: 40 mg Quetiapine Fumarate (Seroquel) 100 mg PO TID [facility] Last Admin: 05/18/18 18:37 Dose: Not Given Sodium Chloride (Sodium Chloride) 1 gm PO BID [facility] Last Admin: 05/18/18 21:12 Dose: 1 gm Allergies Allergy/AdvReac Type Severity Reaction Status Date / Time No Known Allergies Allergy Verified 05/16/18 17:30 Exam Vital signs: Vital Signs 05/18/18 17:34 05/19/18 05:46 Temperature 97.4 F L 98.3 F Pulse Rate 67 72 Respiratory Rate 17 17 Blood Pressure 131/60 130/57 L Pulse Oximetry 99 98 Intake & Output 05/18/18 05/19/18 05/19/18 18:59 06:59 18:59 Intake Total 1440 / 1440 340 / 340 Balance 1440 / 1440 340 / 340 Intake: Oral 1440 / 1440 240 / 240 Oral Supplement 100 / 100 Other: # Voids 2 Narrative: Patient not noted to be in acute distress, no gross motor abnormalities, no signs of tremor or EPS, no psychomotor agitation or retardation. - Constitutional no acute distress, cooperative Mental Status Examination Appearance: Appropriate Consciousness: Alert Orientation: Person, Place, Situation Motor Activity: Normal gait Speech: Pressured, Rapid Language: Perseveration Fund of Knowledge: Adequate Attention and Concentration: Easily distracted Memory: Impaired Mood: Irritable, Manic Affect: Other (Labile) Thought Process & Associations: Loose associations, Disorganized Thought Content: Bizarre thinking, Delusional Hallucination Type: None Delusion Type: Paranoid Suicidal Ideation: No Suicidal Plan: No Suicidal Intention: No Homicidal Ideation: No Homicidal Plan: No Homicidal Intention: No Insight: Poor Judgment: Poor Assessment and Plan - Assessment (1) Bipolar affective disorder, currently manic, severe, with psychotic features Code(s): F31.2 - Bipolar disorder, current episode manic severe with psychotic features Status: Acute - Plan Plan: I have seen and examined this patient, reviewed the documentation, and I agree and concur with Dr. Brown assessment and plan. I have completed second opinion for the petition for involuntary hospitalization. Consult appreciated. Justification for Continued Inpatient Stay: At risk of further decompensation at lower level care. Request Healthcare Surrogate/Guardian Advocate?: Yes
[2018-05-19] MEDS: Divalproex 500 MG ER Tablet PO SCH ×2 (09:37→20:32)
[2018-05-19] MEDS: Folic Acid 1 MG Tablet PO SCH (09:38)
[2018-05-19] MEDS: Propranolol 40 MG Tablet PO SCH ×2 (09:38→20:32)
[2018-05-19] MEDS: amLODIPine 10 MG Tablet PO SCH (09:38)
[2018-05-19] MEDS: QUEtiapine 100 MG Tablet PO SCH ×3 (09:40→17:01)
[2018-05-19] MEDS: Sodium Chloride 1 GM Tablet PO SCH ×2 (09:41→20:32)
[2018-05-19] MEDS: Ciprofloxacin 200 MG/100 ML 200 MG/100 ML PIGGYBACK IV.SIG SCH ×2 (11:24→20:35)
--- NOTE | 2018-05-19 14:59 | P.PNPSY ---
Subjective Chief Complaint: Patient manic psychotic delusional Remarks: Patient is seen in her room with medical student Terrance and Dr. Almazan. Chart reviewed. Patient compliant medication. Patient remains quite manic delusional and psychotic with rapid pressured speech markedly intrusive and somewhat entitled and demanding now telling me that she has a half $1 million in savings that the police are monitoring for her. She also states she may consider going into an [facility]. Though I doubt that she would really except that. In any event we will check Depakote level over on 05/22. Continue medication as ordered. Review of Systems All other systems reviewed negative except as stated in HPI Mental Status Examination Appearance: Appropriate, Disheveled (Mildly) Consciousness: Alert Orientation: Person, Place, Situation Motor Activity: Normal gait Speech: Pressured, Rapid Language: Perseveration Fund of Knowledge: Adequate Attention and Concentration: Easily distracted Memory: Impaired Mood: Irritable, Manic Affect: Other (Marked increased range and intensity) Thought Process & Associations: Loose associations, Disorganized Thought Content: Bizarre thinking, Delusional Hallucination Type: None Delusion Type: Paranoid Suicidal Ideation: No Suicidal Plan: No Suicidal Intention: No Homicidal Ideation: No Homicidal Plan: No Homicidal Intention: No Insight: Poor Judgment: Poor Assessment and Plan - Assessment (1) Bipolar affective disorder, currently manic, severe, with psychotic features Code(s): F31.2 - Bipolar disorder, current episode manic severe with psychotic features Status: Acute - Plan Plan: Patient remains quite psychotic manic agitated with no significant insight. We will check Depakote blood level of more on 05/22 Justification for Continued Inpatient Stay: At this time patient with decompensated placed on a lower level of care Discharge Planning: To be determined Request Healthcare Surrogate/Guardian Advocate?: Yes
--- NOTE | 2018-05-19 15:36 | ECG ---
Date Performed: 05/18/2018 Time Performed: 13:46:28 PTAGE: 67 years EKG: Sinus rhythm POSSIBLE LEFT ATRIAL ENLARGEMENT MARKED LEFT AXIS DEVIATION PATTERN CONSISTENT WITH PULMONARY DISEAS E ABNORMAL ECG PREVIOUS TRACING : 01/26/2018 18.45 Since the previous tracing, no significant change noted DOCTOR: Neil Quiroz Interpretating Date/Time 05/19/2018 15:35:15
--- NOTE | 2018-05-19 17:32 | P.PN ---
Subjective Interval history: Follow-up visit for hyponatremia and UTI. Nurse does not report any acute events. Patient is seen and examined in her room in no acute distress. Denies any fevers, chills, N/V/D, cough, SOB, dysuria. Some back soreness, but improving. Physical Exam Vital signs: Vital Signs 05/18/18 17:34 05/19/18 05:46 05/19/18 17:12 Temperature 97.4 F L 98.3 F 98.1 F Pulse Rate 67 72 67 Respiratory Rate 17 16 Blood Pressure 131/60 130/57 L 120/62 Pulse Oximetry 99 98 98 Intake & Output 05/18/18 05/19/18 05/19/18 18:59 06:59 18:59 Intake Total 1440 / 1440 340 / 340 1280 / 1280 Balance 1440 / 1440 340 / 340 1280 / 1280 Intake: IV 200 / 200 Cipro 200 MG/100 ML Inj 200 mg 200 / 200 In 100 ml @ 100 mls/hr IV.SIG Q12H ALFREDA Rx#:[id number] Oral 1440 / 1440 240 / 240 1080 / 1080 Oral Supplement 100 / 100 Other: # Voids 2 4 Narrative: GENERAL: Patient awake and alert, in no acute distress. SKIN: Warm and dry. EYES: No scleral icterus. No injection or drainage. ENT: No nasal bleeding or discharge. Mucous membranes pink and moist. CARDIOVASCULAR: Regular rate and rhythm. no murmurs RESPIRATORY: No accessory muscle use. Clear to auscultation. Breath sounds equal bilaterally. GASTROINTESTINAL: Abdomen soft, non-tender, nondistended. : No CVA tenderness, no suprapubic tenderness. Extremities: No clubbing, cyanosis, or edema. No obvious deformities. MUSCULOSKELETAL: Moving all extremities without difficulty. NEUROLOGICAL: Awake and alert. No obvious cranial nerve deficits. No facial droop nor slurred speech noted. PSYCHIATRIC: Pressured speech. Results - Labs CBC & Chem 7: 05/16/18 18:16 05/18/18 08:46 Laboratory Results - last 24 hr 05/18/18 07:46 Hemoglobin A1c 5.2 Microbiology 05/17/18 17:30 Catheterized Urine Urine Culture - Final No growth in 48 hours Assessment and Plan - Plan Patient is a 67-year-old female admitted to inpatient psychiatry for acute manic /psychotic episode, hospitalist consulted for medical management. Acute manic/psychotic disturbance Likely secondary to noncompliance as VPA level un undetectable, may have been exacerbated with possible urinary tract infection -defer management to psychiatry Possible urinary tract infection -UA positive for Pseudomonas aeruginosa, montoya sensitive. Transition to oral cipro. afebrile, asymptomatic today. Hypertension Hyperlipidemia Hx of Cardiac valve insufficiency Continue home Norvasc, Lipitor, propranolol History of hyponatremia, possible SIADH Na 135-->128, increase sodium tab to BID -BMP tomorrow Hypokalemia, resolved DVT prophylaxisambulation Discussed Condition With: patient and RN
[2018-05-19] MEDS: Ciprofloxacin 500 MG Tablet PO SCH (20:32)
[2018-05-20] MEDS: Aluminum/Magnesium/Simethacone Susp 30 ML UDC PO PRN (04:10)
--- NOTE | 2018-05-20 08:03 | P.PN ---
Subjective Interval history: Follow-up for UTI and hyponatremia. Seen and examined in bed, reports feeling "sick to my stomach". Abdominal cramping since 3am, two episodes of nausea and vomiting, 2 episodes of soft stool. Denies dysuria, fevers, chills, cough or SOB. She also reports left sided rib pain, reports that several days ago she has a slip and fall. Physical Exam Vital signs: Vital Signs 05/19/18 17:12 05/20/18 05:59 Temperature 98.1 F 97.8 F Pulse Rate 67 71 Respiratory Rate 16 16 Blood Pressure 120/62 119/57 L Pulse Oximetry 98 99 Intake & Output 05/19/18 05/20/18 05/20/18 18:59 06:59 18:59 Intake Total 1280 / 1280 340 / 340 Balance 1280 / 1280 340 / 340 Weight 74.9 kg Intake: IV 200 / 200 Cipro 200 MG/100 ML Inj 200 mg 200 / 200 In 100 ml @ 100 mls/hr IV.SIG Q12H ALFREDA Rx#:[id number] Oral 1080 / 1080 240 / 240 Oral Supplement 100 / 100 Other: # Voids 4 1 Narrative: GENERAL: Patient awake and alert, in no acute distress. SKIN: Warm and dry. EYES: No scleral icterus. No injection or drainage. ENT: Mucous membranes pink and moist. CARDIOVASCULAR: Regular rate and rhythm. No murmurs. RESPIRATORY: No accessory muscle use. Clear to auscultation. Breath sounds equal bilaterally. GASTROINTESTINAL: Abdomen soft, non-tender, nondistended. : No CVA tenderness, no suprapubic tenderness. Extremities: No clubbing, cyanosis, or edema. No obvious deformities. MUSCULOSKELETAL: Moving all extremities without difficulty. Left upper rib tenderness with palpation. NEUROLOGICAL: Awake and alert. No obvious cranial nerve deficits. No facial droop nor slurred speech noted. PSYCHIATRIC: Pressured speech. Results - Labs CBC & Chem 7: 05/16/18 18:16 05/20/18 08:37 Microbiology 05/17/18 17:30 Catheterized Urine Urine Culture - Final No growth in 48 hours Assessment and Plan - Plan Patient is a 67-year-old female admitted to inpatient psychiatry for acute manic /psychotic episode, hospitalist consulted for medical management. Acute manic/psychotic disturbance Likely secondary to noncompliance as VPA level un undetectable, may have been exacerbated with possible urinary tract infection -defer management to psychiatry Possible urinary tract infection -UA positive for Pseudomonas aeruginosa, montoya sensitive. Continue p.o. Cipro until completion date. afebrile, asymptomatic. Hypertension Hyperlipidemia Hx of Cardiac valve insufficiency Continue home Norvasc, Lipitor, propranolol History of hyponatremia, possible SIADH Na 135-->128-->130, continue sodium tab BID -Monitor levels in two days. Rib pain - Rib x-ray negative, Lidoderm patch for discomfort. Nausea/vomiting upset stomach - Likely due to Cipro, add Lactinex, monitor for diarrhea. - PRN Zofran Hypokalemia, resolved DVT prophylaxisambulation Discussed Condition With: Patient and RN
[2018-05-20] MEDS: Ciprofloxacin 500 MG Tablet PO SCH ×2 (08:46→20:41)
[2018-05-20] MEDS: amLODIPine 10 MG Tablet PO SCH (08:46)
[2018-05-20] MEDS: Folic Acid 1 MG Tablet PO SCH (08:47)
[2018-05-20] MEDS: Sodium Chloride 1 GM Tablet PO SCH ×2 (09:18→20:43)
[2018-05-20] MEDS: Lactobacillus Acidophilus/L. Spores Tablet PO SCH ×3 (09:28→20:41)
[2018-05-20] MEDS: Propranolol 40 MG Tablet PO SCH ×2 (09:28→20:41)
[2018-05-20] MEDS: Divalproex 500 MG ER Tablet PO SCH ×2 (09:29→20:44)
[2018-05-20] MEDS: QUEtiapine 100 MG Tablet PO SCH ×3 (09:29→17:04)
[2018-05-20 09:41] LABS: Anion Gap 8 meq/L (5-15); Blood Urea Nitrogen 9 mg/dL (7-18); Calcium 9.5 mg/dL (8.5-10.1); Carbon Dioxide 26.2 meq/L (21.0-32.0); Chloride 96 meq/L (98-107); Glomerular Filtration Rate Greater Than 89 mL/min (>89); Glucose,Random 116 mg/dL (74-106); Potassium 4.3 meq/L (3.5-5.1); Sodium 130 meq/L (136-145)
--- NOTE | 2018-05-20 09:48 | XR ---
EXAM DATE: 05/20/2018 9:45 AM EST AGE/SEX: 67 years / Female INDICATIONS: Left rib pain after a fall 3 weeks ago. Patient has increased left flank pain & vomitin g since last night. CLINICAL DATA: This is the patient's initial encounter. Patient reports that signs and symptoms have been present for 3 weeks and indicates a pain score of 10/10. MEDICAL/SURGICAL HISTORY: Hypertension. Pancreatitis. None. COMPARISON: [facility], XR CHEST PA AND LAT, 10/10/2017. . FINDINGS: There is no evidence of displaced fracture. No destructive lesions or areas of periosteal thickenin g are seen. CONCLUSION: Negative rib series. Electronically signed by: Julian Valenzuela MD 05/20/2018 9:46 AM EST
[2018-05-20] MEDS: Lidocaine 5% Patch T-DERMAL SCH (10:47)
--- NOTE | 2018-05-20 12:00 | P.PNPSY ---
Subjective Chief Complaint: Patient manic psychotic delusional Remarks: Patient seen and [facility], chart reviewed, patient is seen with family practice resident Dr. Ferrell. Patient showing mixed compliance with medication. Patient is scheduled for [employer] [facility] tomorrow we will be asking for healthcare surrogate/guardian advocate. Patient continues grandiose delusional intrusive at times somewhat irritating and angry. Still maintaining the delusions about she having a half $1 million that is being cared for by the police department. For now continue treatment. We need to consider the possibility of referral to the [facility] if she does not show some improvement this episode of treatment Review of Systems All other systems reviewed negative except as stated in HPI Mental Status Examination Appearance: Appropriate Consciousness: Alert Orientation: Person, Place, Situation Motor Activity: Normal gait Speech: Pressured, Rapid Language: Perseveration Fund of Knowledge: Adequate Attention and Concentration: Easily distracted Memory: Impaired Mood: Irritable, Manic Affect: Other (Labile) Thought Process & Associations: Loose associations, Disorganized Thought Content: Bizarre thinking, Delusional Hallucination Type: None Delusion Type: Paranoid Suicidal Ideation: No Suicidal Plan: No Suicidal Intention: No Homicidal Ideation: No Homicidal Plan: No Homicidal Intention: No Insight: Poor Judgment: Poor Assessment and Plan - Assessment (1) Bipolar affective disorder, currently manic, severe, with psychotic features Code(s): F31.2 - Bipolar disorder, current episode manic severe with psychotic features Status: Acute - Plan Plan: Patient continues manic paranoid delusional grandiose and intrusive with little insight into her disease. For now continue treatment. Patient is scheduled for a [employer] [facility] tomorrow Justification for Continued Inpatient Stay: At this time patient with decompensated placed in a lower level of care Discharge Planning: To be determined placement may become problematic Request Healthcare Surrogate/Guardian Advocate?: Yes
[2018-05-21] MEDS: amLODIPine 10 MG Tablet PO SCH (08:03)
[2018-05-21] MEDS: Propranolol 40 MG Tablet PO SCH ×2 (08:03→21:00)
[2018-05-21] MEDS: Ciprofloxacin 500 MG Tablet PO SCH ×2 (08:04→21:00)
[2018-05-21] MEDS: Lactobacillus Acidophilus/L. Spores Tablet PO SCH ×2 (08:04→21:00)
[2018-05-21] MEDS: Sodium Chloride 1 GM Tablet PO SCH ×2 (08:04→21:00)
[2018-05-21] MEDS: Divalproex 500 MG ER Tablet PO SCH ×2 (08:05→21:00)
[2018-05-21] MEDS: Folic Acid 1 MG Tablet PO SCH (08:05)
[2018-05-21] MEDS: Lidocaine 5% Patch T-DERMAL SCH (08:06)
[2018-05-21] MEDS: QUEtiapine 100 MG Tablet PO SCH ×6 (08:08→17:37)
--- NOTE | 2018-05-21 10:19 | P.PNPSY ---
Subjective Chief Complaint: Patient manic psychotic delusional Remarks: Patient seen and [facility]. [address] [place] taper routine patient with her daughter to be guardian advocate. Patient remains hyperverbal with rapid pressured speech that is grandiosity and delusional ideation related to this for now continue treatment not to get permission from the guardian advocate to initiate psychotropic treatment. Patient has been no significant behavioral problems except for her verbal intrusiveness Review of Systems All other systems reviewed negative except as stated in HPI Mental Status Examination Appearance: Appropriate Consciousness: Alert Orientation: Person, Place, Situation Motor Activity: Normal gait Speech: Pressured, Rapid Language: Perseveration Fund of Knowledge: Adequate Attention and Concentration: Easily distracted Memory: Impaired Mood: Irritable, Manic Affect: Other (Labile) Thought Process & Associations: Loose associations, Disorganized Thought Content: Bizarre thinking, Delusional Hallucination Type: None Delusion Type: Paranoid Suicidal Ideation: No Suicidal Plan: No Suicidal Intention: No Homicidal Ideation: No Homicidal Plan: No Homicidal Intention: No Insight: Poor Judgment: Poor Assessment and Plan - Assessment (1) Bipolar affective disorder, currently manic, severe, with psychotic features Code(s): F31.2 - Bipolar disorder, current episode manic severe with psychotic features Status: Acute - Plan Plan: Patient remains manic somewhat grandiose and psychotic, patient retained in [place] [address], daughter to be guardian advocate Justification for Continued Inpatient Stay: At this time patient with decompensated placed in a lower level of care Discharge Planning: To be determined if patient does not respond significantly we may need to consider long-term placement Request Healthcare Surrogate/Guardian Advocate?: Yes
--- NOTE | 2018-05-21 15:38 | P.PNIM ---
Subjective Interval history: Follow-up visit urinary tract infection, nausea, vomiting. Patient seen and examined today. Reports subjective nausea vomiting. As per nursing patient never reported any of the incident of nausea vomiting after breakfast or lunch today. Patient is very repetitive. Asking if she can be seen every day and if she is going to be seen tomorrow again by provider. Appears to be somatic. Otherwise, denies pain and discomfort. Denies SOB/ dyspnea. Denies chest pain , palpitations, headaches, dizziness. Denies fevers, chills. Physical Exam Vital signs: Vital Signs 05/20/18 17:30 05/21/18 06:11 Temperature 98.4 F 98.2 F Pulse Rate 67 67 Respiratory Rate 18 18 Blood Pressure 126/58 L 131/62 Pulse Oximetry 97 100 Intake & Output 05/20/18 05/21/18 05/21/18 18:59 06:59 18:59 Intake Total 1919 / 1919 840 / 840 Output Total / 3 Balance 1916 / 1916 840 / 840 Intake: Oral 1919 / 1919 840 / 840 Output: Urine Narrative: GENERAL: This is a well-nourished, well-developed patient, in no apparent distress. SKIN: Warm and dry. HEENT: Normocephalic. Pupils equal round and reactive. Nose without bleeding. Airway patent. NECK: Trachea midline. CARDIOVASCULAR: Regular rate and rhythm without murmurs, gallops, or rubs. RESPIRATORY: Clear to auscultation. Breath sounds equal bilaterally. No wheezes , rales, or rhonchi. GASTROINTESTINAL: Abdomen soft, nondistended. Bowel Sounds normoactive x4. Tenderness to palpate. MUSCULOSKELETAL: Extremities without clubbing, cyanosis, or edema. NEUROLOGICAL: Awake and alert. No focal neuro deficit. Moves all extremities. Normal speech. Results - Labs CBC & Chem 7: 05/16/18 18:16 05/20/18 08:37 Assessment and Plan - Plan Patient is a 67-year-old female admitted to inpatient psychiatry for acute manic /psychotic episode, hospitalist consulted for medical management. Acute manic/psychotic disturbance -Likely secondary to noncompliance as VPA level un undetectable, may have been exacerbated with possible urinary tract infection -Management to psychiatry Urinary tract infection -UA positive for Pseudomonas aeruginosa, montoya sensitive -Continue p.o. Cipro until completion date. -afebrile, asymptomatic. Hypertension Hyperlipidemia Hx of Cardiac valve insufficiency -Continue home Norvasc, Lipitor, propranolol History of hyponatremia, possible SIADH -Na 135-->128-->130, continue sodium tab BID -Monitor levels in two days. Rib pain - Rib x-ray negative, Lidoderm patch for discomfort. Nausea/vomiting upset stomach -Likely due to Cipro,Lactinex, monitor for diarrhea. -PRN Zofran -Report nausea vomiting after eating, possibly somatic as nurses says that they have not witnessed the incident nor the patient reported the incident to them. DVT prophylaxisambulation CODE STATUS full code Discussed with patient, nursing Complete antibiotic treatment. Stable from Hospitalist standpoint. We will sign off. Reconsult as needed. Thank you. Discharge Planning: DC disposition by primary team
[2018-05-22] MEDS: Lactobacillus Acidophilus/L. Spores Tablet PO SCH ×2 (08:04→21:20)
[2018-05-22] MEDS: Folic Acid 1 MG Tablet PO SCH (08:04)
[2018-05-22] MEDS: Ciprofloxacin 500 MG Tablet PO SCH ×2 (08:04→21:20)
[2018-05-22] MEDS: amLODIPine 10 MG Tablet PO SCH (08:05)
[2018-05-22] MEDS: Propranolol 40 MG Tablet PO SCH ×2 (08:05→21:20)
[2018-05-22] MEDS: Sodium Chloride 1 GM Tablet PO SCH ×2 (08:05→21:20)
[2018-05-22] MEDS: Divalproex 500 MG ER Tablet PO SCH ×2 (08:06→21:20)
[2018-05-22] MEDS: Lidocaine 5% Patch T-DERMAL SCH (08:07)
[2018-05-22] MEDS: QUEtiapine 100 MG Tablet PO SCH ×4 (08:09→17:04)
--- NOTE | 2018-05-22 15:14 | P.PNPSY ---
Subjective Chief Complaint: Patient manic psychotic delusional Remarks: Patient is seen in the day room with nurse Gali, chart reviewed, patient compliant medication though he had not gotten consent For the psychotropics. Patient remains somewhat manic with rapid pressured speech and grandiosity and some entitlement and manipulation. For now continue treatment to continue to attempt to reach patient's family to get permission for medication Review of Systems All other systems reviewed negative except as stated in HPI Mental Status Examination Appearance: Appropriate Consciousness: Alert Orientation: Person, Place, Situation Motor Activity: Normal gait Speech: Pressured, Rapid Language: Perseveration Fund of Knowledge: Adequate Attention and Concentration: Easily distracted Memory: Impaired Mood: Irritable, Manic Affect: Other (Labile) Thought Process & Associations: Loose associations, Disorganized Thought Content: Bizarre thinking, Delusional Hallucination Type: None Delusion Type: Paranoid Suicidal Ideation: No Suicidal Plan: No Suicidal Intention: No Homicidal Ideation: No Homicidal Plan: No Homicidal Intention: No Insight: Poor Judgment: Poor Assessment and Plan - Assessment (1) Bipolar affective disorder, currently manic, severe, with psychotic features Code(s): F31.2 - Bipolar disorder, current episode manic severe with psychotic features Status: Acute - Plan Plan: Patient remains manic psychotic delusional. The no significant behavioral problems. She is intrusive. Needing redirection. Continue to work on getting permission from family members for treatment Justification for Continued Inpatient Stay: At this time patient with decompensated placed on a lower level of care Discharge Planning: To be determined Request Healthcare Surrogate/Guardian Advocate?: Yes
[2018-05-23] MEDS: QUEtiapine 100 MG Tablet PO SCH ×3 (10:17→17:09)
[2018-05-23] MEDS: amLODIPine 10 MG Tablet PO SCH (10:17)
[2018-05-23] MEDS: Divalproex 500 MG ER Tablet PO SCH ×2 (10:17→21:35)
[2018-05-23] MEDS: Ciprofloxacin 500 MG Tablet PO SCH (10:17)
[2018-05-23] MEDS: Sodium Chloride 1 GM Tablet PO SCH ×2 (10:17→21:35)
[2018-05-23] MEDS: Lactobacillus Acidophilus/L. Spores Tablet PO SCH ×2 (10:17→21:35)
[2018-05-23] MEDS: Lidocaine 5% Patch T-DERMAL SCH (10:18)
[2018-05-23] MEDS: Folic Acid 1 MG Tablet PO SCH (10:18)
[2018-05-23] MEDS: Propranolol 40 MG Tablet PO SCH ×2 (10:18→21:35)
--- NOTE | 2018-05-23 12:49 | P.PNPSY ---
Subjective Chief Complaint: Patient manic psychotic delusional Remarks: Reviewed electronic medical records and discussed case with staff. Follow-up was conducted in the day room with SHERYL Davis present. Her nurse reports she is been complaining of nausea today but has had no vomiting. She states that she is in a good mood and has had a euthymic affect. She appears much calmer than the last time I saw her. She is complaining of stomach and back pain. But states that she slept well and her appetite's been good. She seems less verbose today but still somewhat tangential focusing on her glasses and placement. Staff advised she has been easy to redirect. Mental Status Examination Appearance: Appropriate Consciousness: Alert Orientation: Person, Place, Situation Motor Activity: Normal gait Speech: Pressured, Rapid Language: Perseveration Fund of Knowledge: Adequate Attention and Concentration: Easily distracted Memory: Impaired Mood: Irritable, Manic Affect: Other (Labile) Thought Process & Associations: Loose associations, Disorganized Thought Content: Bizarre thinking, Delusional Hallucination Type: None Delusion Type: Paranoid Suicidal Ideation: No Suicidal Plan: No Suicidal Intention: No Homicidal Ideation: No Homicidal Plan: No Homicidal Intention: No Insight: Poor Judgment: Poor Assessment and Plan - Assessment (1) Bipolar affective disorder, currently manic, severe, with psychotic features Code(s): F31.2 - Bipolar disorder, current episode manic severe with psychotic features Status: Acute - Plan Plan: Patient will be reevaluated by the attending psychiatrist. Continue with current treatment plan. Justification for Continued Inpatient Stay: Moving this patient to a less restrictive environment would likely result in decompensation. Request Healthcare Surrogate/Guardian Advocate?: Yes
[2018-05-24] MEDS: Aluminum/Magnesium/Simethacone Susp 30 ML UDC PO PRN (01:19)
--- NOTE | 2018-05-24 08:16 | P.PNPSY ---
Subjective Chief Complaint: Patient manic psychotic delusional Remarks: Reviewed electronic medical records and discussed case with staff. Follow-up was conducted in the day room with SHERYL Corona present. Patient appears calmer. She continues to be paranoid and feels that a person named Drew is staking her. She is grandiose and somewhat delusional. She is cooperative and easily redirected. She is sleeping and eating well. She completed Cipro for a UTI . She is complaining of abd pain that may be a result of the antibiotic. Patient is eating and sleeping well. Denies SI/HI. Review of Systems All other systems reviewed negative except as stated in HPI Gastrointestinal: Reports abdominal pain (completed Cipro on 05/23/18 for UTI ) Mental Status Examination Appearance: Appropriate Consciousness: Alert Orientation: Person, Place, Situation Motor Activity: Normal gait Speech: Pressured, Rapid Language: Perseveration Fund of Knowledge: Adequate Attention and Concentration: Easily distracted Memory: Impaired Mood: Irritable, Manic Affect: Other (Labile) Thought Process & Associations: Loose associations, Disorganized Thought Content: Bizarre thinking, Delusional Hallucination Type: None Delusion Type: Paranoid Suicidal Ideation: No Suicidal Plan: No Suicidal Intention: No Homicidal Ideation: No Homicidal Plan: No Homicidal Intention: No Insight: Poor Judgment: Poor Assessment and Plan - Assessment (1) Bipolar affective disorder, current episode manic with psychotic symptoms Code(s): F31.2 - Bipolar disorder, current episode manic severe with psychotic features Status: Acute - Plan Plan: Patient will be reevaluated by the attending psychiatrist. Continue with current treatment plan. Justification for Continued Inpatient Stay: Moving patient to a less restrictive environment may result in her decompensation. Request Healthcare Surrogate/Guardian Advocate?: Yes
[2018-05-24] MEDS: Lactobacillus Acidophilus/L. Spores Tablet PO SCH ×2 (08:45→20:24)
[2018-05-24] MEDS: QUEtiapine 100 MG Tablet PO SCH ×3 (08:45→17:55)
[2018-05-24] MEDS: Sodium Chloride 1 GM Tablet PO SCH ×2 (08:45→20:24)
[2018-05-24] MEDS: amLODIPine 10 MG Tablet PO SCH (08:45)
[2018-05-24] MEDS: Divalproex 500 MG ER Tablet PO SCH ×2 (08:45→20:24)
[2018-05-24] MEDS: Propranolol 40 MG Tablet PO SCH ×2 (08:46→20:24)
[2018-05-24] MEDS: Folic Acid 1 MG Tablet PO SCH (08:46)
[2018-05-24] MEDS: Lidocaine 5% Patch T-DERMAL SCH (08:46)
[2018-05-25] MEDS: QUEtiapine 100 MG Tablet PO SCH ×3 (08:25→17:08)
[2018-05-25] MEDS: Divalproex 500 MG ER Tablet PO SCH ×2 (08:25→20:06)
[2018-05-25] MEDS: Folic Acid 1 MG Tablet PO SCH (08:25)
[2018-05-25] MEDS: amLODIPine 10 MG Tablet PO SCH (08:25)
[2018-05-25] MEDS: Sodium Chloride 1 GM Tablet PO SCH ×2 (08:25→20:07)
[2018-05-25] MEDS: Lactobacillus Acidophilus/L. Spores Tablet PO SCH ×2 (08:25→20:06)
[2018-05-25] MEDS: Propranolol 40 MG Tablet PO SCH ×2 (08:25→20:07)
--- NOTE | 2018-05-25 10:48 | P.PNPSY ---
Subjective Chief Complaint: Patient manic psychotic delusional Remarks: Patient seen a day room with floor staff, chart reviewed, patient compliant medication. Depakote level drawn on 05/23 is 26. We will repeat Depakote level tomorrow. Patient remains with rapid pressured speech but is slightly diminished in its rate and intensity. She is not quite as intrusive today. It appears the patient has been accepted at [facility] when she is further stabilized. Anticipate this being of the next few days Review of Systems All other systems reviewed negative except as stated in HPI Mental Status Examination Appearance: Appropriate Consciousness: Alert Orientation: Person, Place, Situation Motor Activity: Normal gait Speech: Pressured (Slightly softer), Rapid (Slightly slower) Language: Perseveration Fund of Knowledge: Adequate Attention and Concentration: Easily distracted Memory: Impaired Mood: Irritable (Less irritable), Manic (Slightly calmer) Affect: Other (Slight increased range and intensity) Thought Process & Associations: Loose associations, Disorganized Thought Content: Bizarre thinking, Delusional Hallucination Type: None Delusion Type: Paranoid (Somewhat softer) Suicidal Ideation: No Suicidal Plan: No Suicidal Intention: No Homicidal Ideation: No Homicidal Plan: No Homicidal Intention: No Insight: Poor Judgment: Poor Assessment and Plan - Assessment (1) Bipolar affective disorder, currently manic, severe, with psychotic features Code(s): F31.2 - Bipolar disorder, current episode manic severe with psychotic features Status: Acute - Plan Plan: Patient remains manic and paranoid though somewhat improved. We will check Depakote blood level over in a.m. Justification for Continued Inpatient Stay: At this time patient with decompensated placed on a lower level of care Discharge Planning: [facility] Request Healthcare Surrogate/Guardian Advocate?: Yes
--- NOTE | 2018-05-25 11:04 | P.TTN ---
- Patient Problems Problems: 1. Discharge planning 2. Medication compliance 3. Knowledge deficit 4. Lack of coping skills - Progress Toward Goals Provider Present: Dr. Erin Brown Provider Input: 05/25/18: Still meets criteria. Remain for further stabilization. 05/18/18: Pt is newly returned to unit from recent d/c. Pt's spouse is at [facility]. Disposition plan has not been determined as yet, plof was pt living at home. Nurse(s) Present: Zeenat SAUCEDO Nurse Input: 05/25/18: Appropriate with staff, Med compliant. Depokote level needs to be brought back up. 05/18/2018; patient is new being assess for medical and mental health Psychiatric Counselors Present: Martina Oden, [facility], Other (AA) Psychiatric Therapist Input: 05/25/18: Martina: Inappropriate behavior, grandiose , no insight. 05/18/2018; patient dc planning will be staff to determine what has to be in place prior to dc Group Spec/RT/OT/MAYS Present: Rita Fields, GPS, Rakan Briones, OT Group Spec/RT/OT/MAYS Input: 05/25/18: Rita: Attends select group activities on the unit. Social with select peers. 05/18/2018; patient will be orientated with groups and activities - Discharge Plan 05/18/18: Pt is newly returned to unit from recent d/c. Pt's spouse is at [facility]. Disposition plan has not been determined as yet, plof was pt living at home. 05/25/18: Possible placement to [facility] when stable. - Documentation Scribe: Rita Fields Teaching Recipient: Patient
[2018-05-25] MEDS: Lidocaine 5% Patch T-DERMAL SCH (12:44)
[2018-05-26] MEDS: Divalproex 500 MG ER Tablet PO SCH ×2 (09:09→21:10)
[2018-05-26] MEDS: amLODIPine 10 MG Tablet PO SCH (09:09)
[2018-05-26] MEDS: Lactobacillus Acidophilus/L. Spores Tablet PO SCH ×2 (09:09→21:10)
[2018-05-26] MEDS: Sodium Chloride 1 GM Tablet PO SCH ×2 (09:09→21:10)
[2018-05-26] MEDS: Propranolol 40 MG Tablet PO SCH ×2 (09:10→21:10)
[2018-05-26] MEDS: Folic Acid 1 MG Tablet PO SCH (09:10)
[2018-05-26] MEDS: QUEtiapine 100 MG Tablet PO SCH ×3 (09:11→17:29)
[2018-05-26] MEDS: Lidocaine 5% Patch T-DERMAL SCH (09:11)
--- NOTE | 2018-05-26 10:09 | P.PNPSY ---
Subjective Chief Complaint: Patient manic psychotic delusional Remarks: Patient is seen in her room with Dr. Morales and nurse Gali, chart reviewed, patient compliant medications. Depakote blood level drawn this a.m. came back at 80. Patient remains somewhat calmer the range and intensity of her affect is softened. There remains some mild grandiosity but overall she is improved. At this improvement continues consider discharge in 1-2 days probably to [facility] Review of Systems All other systems reviewed negative except as stated in HPI Mental Status Examination Appearance: Appropriate Consciousness: Alert Orientation: Person, Place, Situation Motor Activity: Normal gait Speech: Pressured (Slightly softer), Rapid (Slightly slower) Language: Perseveration (Improved) Fund of Knowledge: Adequate Attention and Concentration: Easily distracted Memory: Impaired Mood: Irritable (Less irritable), Manic (Slightly calmer) Affect: Other (Slight increased range and intensity) Thought Process & Associations: Loose associations, Disorganized Thought Content: Bizarre thinking, Delusional Hallucination Type: None Delusion Type: Paranoid (Somewhat softer) Suicidal Ideation: No Suicidal Plan: No Suicidal Intention: No Homicidal Ideation: No Homicidal Plan: No Homicidal Intention: No Insight: Poor Judgment: Poor Assessment and Plan - Assessment (1) Bipolar affective disorder, currently manic, severe, with psychotic features Code(s): F31.2 - Bipolar disorder, current episode manic severe with psychotic features Status: Acute - Plan Plan: Patient's alison delusions and mild psychosis continued to improve, she is compliant with medication. Depakote at a good range now at 80. For now continue treatment consider discharge in 1-2 days Justification for Continued Inpatient Stay: At this time patient would decompensate if not place an appropriate level of care Discharge Planning: Patient continues to improve consider discharge in 1-2 days to [facility] Request Healthcare Surrogate/Guardian Advocate?: Yes
[2018-05-27] MEDS: QUEtiapine 100 MG Tablet PO SCH ×3 (10:03→17:44)
[2018-05-27] MEDS: Folic Acid 1 MG Tablet PO SCH (10:03)
[2018-05-27] MEDS: Lactobacillus Acidophilus/L. Spores Tablet PO SCH ×2 (10:03→21:39)
[2018-05-27] MEDS: Divalproex 500 MG ER Tablet PO SCH ×2 (10:04→21:39)
[2018-05-27] MEDS: Sodium Chloride 1 GM Tablet PO SCH ×2 (10:04→21:39)
[2018-05-27] MEDS: Propranolol 40 MG Tablet PO SCH ×2 (10:04→21:39)
[2018-05-27] MEDS: amLODIPine 10 MG Tablet PO SCH (10:04)
[2018-05-27] MEDS: Lidocaine 5% Patch T-DERMAL SCH (10:05)
--- NOTE | 2018-05-27 10:12 | P.DSPSY ---
Psychiatry Discharge Summary Inpatient Psychiatric care?: Yes Advance Directives: No Mental Health Advance Directive: No Health Care Proxy: No - Admission Admission Date: May 17, 2018 12:21 - Admission Diagnosis (1) Bipolar affective disorder, currently manic, severe, with psychotic features Code(s): F31.2 - Bipolar disorder, current episode manic severe with psychotic features Brief History: Patient is 67-year-old white female recently hospitalized here 04/25 through he was discharged to home with referral for home health care. She had been compliant with her medications and her treatment she comes here today under Cook act by the [facility]'s office dated 05/16/2018 at 1840 hrs. This document reviewed essentially says Eren Yoon arrived at the [facility] via taxi service once at the airport [place] removed her shoes and began talking at an elevated level and in which raised concerns by customers and employees. She was said to be talking to herself cussing and screaming. Contact was made with her near the woman's room after leaving her bags and attended by the ticket counters. Color stated she had a flight out of [place] to no work. The sad flight did not exist after checking with the airlines. Allison continue to speak at a higher voice level making no sense of reality to Deputy Brett shabazz. When asked if she suffered from a mental illness she replied yes bipolar and had not been taking her medication. Breanne does not have any immediate area caregivers in which could be contacted by deputy paiz. Based upon her current mental awareness, talk without care and treatment would suffer possible harm she was transported to [facility] evaluation. [facility] urine toxicology negative. Patient initially transported 2600 she was found to have a significant symptomatic urinary tract infection was transferred to 4 E. Patient seen by me on 4 E. sitting in a Ksenia chair in the dayroom. She continues quite disorganized confused tangential and circumstantial in her speech. She did recognize me and did recognize to the medical student. Test for confidentiality and have the nurse came in as a witness. She initially stated she would not talk about having her journeyman pipe fitter and the clinical systems educator present. She said she did go back to her home went into a convoluted story about buying her furniture of the various inheritance and money that she received. Then walking and taking a cab to the airport because she had to get to [place] to see her daughter. Patient states she is compliant with the medication but the Depakote level that low like daughter compliance and her honesty. She continues manic psychotic delusional angry irritable and paranoid. At this time she does meet Cook act criteria although first opinion request second opinion also feels she does not have capacity I will ask for healthcare surrogate and guardian advocate. We will continue meds for the med reconciliation. I have also done the initial psychiatric template orders Tobacco Use In Past 30 Days: No How Often Do You Have a Drink Containing Alcohol: 2 to 3 times a week Hospital Course: Patient's hospital course was uneventful, her alison with psychotic features grandiosity and intrusiveness slowly resolved with her compliance with medication adjustment of the Depakote which she had a Depakote blood level of 80. She showed some insight into her need for an appropriate placement. There is much less perseveration about her relationship with her or flying to [place] for ongoing flights to [place]. Patient has been compliant with medications and the intensity frequency of the alison has subsided. She now denies suicidality or homicidality voices or visions. She is not willing to [facility] an [facility] is accepted patient into their facility there is a bed available today for her. At this time patient has reached maximum benefit of this hospitalization. Patient will be discharged today to that facility with Rx times 1 month and follow-up stroke [facility] act - Discharge Discharge Date: 05/27/18 - Discharge Diagnosis (1) Bipolar affective, manic, part remis Diagnosis: Principal Code(s): F31.73 - Bipolar disorder, in partial remission, most recent episode manic Status: Acute Discharge Disposition: Assisted Living Facility - Discharge Instructions Discharge Diet: Regular Diet Activities You Can Perform: Regular- No Restrictions - Discharge Time > 30 minutes Mental Status Examination Appearance: Appropriate Consciousness: Alert Orientation: Person, Place, Situation Motor Activity: Normal gait Speech: Pressured (Slightly softer), Rapid (Slightly slower) Language: Perseveration (Improved) Fund of Knowledge: Adequate Attention and Concentration: Easily distracted Memory: Impaired Mood: Irritable (Less irritable), Manic (Slightly calmer) Affect: Other (Slight increased range and intensity) Thought Process & Associations: Loose associations, Disorganized Thought Content: Bizarre thinking, Delusional Hallucination Type: None Delusion Type: Paranoid (Somewhat softer) Suicidal Ideation: No Suicidal Plan: No Suicidal Intention: No Homicidal Ideation: No Homicidal Plan: No Homicidal Intention: No Insight: Poor Judgment: Poor Discharge/Advance Care Plan - Results Vital Signs: Last Vital Signs Temp 98.5 F 05/27/18 05:45 Pulse 75 05/27/18 05:45 Resp 16 05/27/18 05:45 BP 129/59 L 05/27/18 05:45 Pulse Ox 94 L 05/27/18 05:45 Lab Results: Laboratory Results Hemoglobin A1c 5.2 % (4.3-6.0) 05/18/18 07:46 Triglycerides 142 mg/dL (42-150) 05/18/18 08:46 Cholesterol 143 mg/dL (120-200) 05/18/18 08:46 LDL Cholesterol, Calc 62 mg/dL (0-99) 05/18/18 08:46 HDL Cholesterol 52.5 mg/dL (40.0-60.0) 05/18/18 08:46 TSH 2.630 uIU/mL (0.358-3.740) 05/16/18 19:23 Urine Culture Comments Culture indicated 05/16/18 19:27 Valproic Acid 80 mcg/mL (50-100) 05/26/18 06:10 Summary of Procedures: None done Imaging: ITS Impressions Ribs X-Ray 05/20/18 00:00 CONCLUSION: Negative rib series. Pending Results: None - Medications Number of antipsychotic medications at discharge: 1 - Discharge Care Plan Goals to Promote Your Health: * To prevent worsening of your condition and complications * To maintain your health at the optimal level Directions to Meet Your Goals: Take your medications as prescribed Follow your dietary instruction Follow activity as directed Keep your appointments as scheduled Take your immunizations and boosters as scheduled If your symptoms worsen call your PCP, if no PCP go to Urgent Care Center or Emergency Room For 13/01 questions related to your inpatient stay or results of tests pending at discharge, please contact Dr. Julian Brown MD at Smoking is Dangerous to Your Health. Avoid second hand smoking
--- NOTE | 2018-05-27 14:25 | P.TTN ---
- Patient Problems Problems: 1. Discharge planning 2. Medication compliance 3. Knowledge deficit 4. Lack of coping skills - Progress Toward Goals Provider Present: Dr. Erin Brown Provider Input: 05/26/18: Pt is ready for dc, stable on meds per MD. 05/25/18: Still meets criteria. Remain for further stabilization. 05/18/18: Pt is newly returned to unit from recent d/c. Pt's spouse is at [facility]. Disposition plan has not been determined as yet, plof was pt living at home. Nurse(s) Present: Zeenat SAUCEDO Nurse Input: 05/26/18 Per RN pt is appropriate with staff and is med compliant. 05/25/18: Appropriate with staff, Med compliant. Depokote level needs to be brought back up. 05/18/2018; patient is new being assess for medical and mental health Psychiatric Counselors Present: Martina Oden [facility], Other (AA) Psychiatric Therapist Input: 05/26/18: Pt will be going to [facility] upon discharge. Valeriy Arenas [facility]. 05/25/18: Martina: Inappropriate behavior, grandiose, no insight. 05/18/2018; patient dc planning will be staff to determine what has to be in place prior to dc Group Spec/RT/OT/MAYS Present: MARLEN Mccarty, Rakan Briones, OT Group Spec/RT/OT/MAYS Input: 05/26/18: Pt has good groups attendace. 05/25/18: Rita: Attends select group activities on the unit. Social with select peers. 05/18/2018; patient will be orientated with groups and activities - Discharge Plan 05/18/18: Pt is newly returned to unit from recent d/c. Pt's spouse is at [facility]. Disposition plan has not been determined as yet, plof was pt living at home. 05/25/18: Possible placement to [facility] when stable. - Documentation Scribe: Rita Fields Teaching Recipient: Patient
[2018-05-28] MEDS: amLODIPine 10 MG Tablet PO SCH (10:01)
[2018-05-28] MEDS: Folic Acid 1 MG Tablet PO SCH (10:01)
[2018-05-28] MEDS: QUEtiapine 100 MG Tablet PO SCH ×3 (10:01→17:43)
[2018-05-28] MEDS: Sodium Chloride 1 GM Tablet PO SCH ×2 (10:01→21:33)
[2018-05-28] MEDS: Propranolol 40 MG Tablet PO SCH ×2 (10:01→21:32)
[2018-05-28] MEDS: Divalproex 500 MG ER Tablet PO SCH ×2 (10:01→21:32)
[2018-05-28] MEDS: Lidocaine 5% Patch T-DERMAL SCH (10:02)
[2018-05-28] MEDS: Lactobacillus Acidophilus/L. Spores Tablet PO SCH ×2 (10:02→21:32)
--- NOTE | 2018-05-28 10:05 | P.PNPSY ---
Subjective Chief Complaint: Patient manic psychotic delusional Remarks: Patient seen today in her room floor staff, chart reviewed, patient continues overall calm cooperative coping with the delays now on placement related to documentation issues funding issues. She denies voices or visions. Denies suicidality. Is compliant with the medication. For now continue treatment Review of Systems All other systems reviewed negative except as stated in HPI Mental Status Examination Appearance: Appropriate Consciousness: Alert Orientation: Person, Place, Situation Motor Activity: Normal gait Speech: Pressured (Slightly softer), Rapid (Slightly slower) Language: Perseveration (Improved) Fund of Knowledge: Adequate Attention and Concentration: Easily distracted Memory: Impaired Mood: Irritable (Less irritable), Manic (Slightly calmer) Affect: Other (Slight increased range and intensity) Thought Process & Associations: Loose associations, Disorganized Thought Content: Bizarre thinking, Delusional Hallucination Type: None Delusion Type: Paranoid (Somewhat softer) Suicidal Ideation: No Suicidal Plan: No Suicidal Intention: No Homicidal Ideation: No Homicidal Plan: No Homicidal Intention: No Insight: Poor Judgment: Poor Assessment and Plan - Assessment (1) Bipolar affective disorder, currently manic, severe, with psychotic features Code(s): F31.2 - Bipolar disorder, current episode manic severe with psychotic features Status: Acute - Plan Plan: Patient overall no significant problems, she is not as intrusive and tense loud or pressured. Compliant medication. Continue to work on placement issues Justification for Continued Inpatient Stay: At this point patient would decompensate if not placed on an appropriate level of care Discharge Planning: To be determined Request Healthcare Surrogate/Guardian Advocate?: Yes
[2018-05-29] MEDS: Lactobacillus Acidophilus/L. Spores Tablet PO SCH ×2 (08:56→22:08)
[2018-05-29] MEDS: QUEtiapine 100 MG Tablet PO SCH ×3 (08:56→18:20)
[2018-05-29] MEDS: Divalproex 500 MG ER Tablet PO SCH ×2 (08:56→22:08)
[2018-05-29] MEDS: amLODIPine 10 MG Tablet PO SCH (08:56)
[2018-05-29] MEDS: Folic Acid 1 MG Tablet PO SCH (08:56)
[2018-05-29] MEDS: Sodium Chloride 1 GM Tablet PO SCH ×2 (08:56→22:08)
[2018-05-29] MEDS: Propranolol 40 MG Tablet PO SCH ×2 (08:56→22:08)
[2018-05-29] MEDS: Lidocaine 5% Patch T-DERMAL SCH (08:57)
--- NOTE | 2018-05-29 11:46 | P.PNPSY ---
Subjective Chief Complaint: Patient manic psychotic delusional Remarks: Patient seen in day room with nurse PAC, chart reviewed, patient compliant medication. Patient continues calm and cooperative. Her rapid pressured speech is markedly diminished and grandiosity has diminished. It appears to find a placement for this lady. [facility] Martin [facility] on Friday 06/01 Review of Systems All other systems reviewed negative except as stated in HPI Mental Status Examination Appearance: Appropriate Consciousness: Alert Orientation: Person, Place, Situation Motor Activity: Normal gait Speech: Pressured (Slightly softer), Rapid (Slightly slower) Language: Perseveration (Improved) Fund of Knowledge: Adequate Attention and Concentration: Easily distracted Memory: Impaired Mood: Irritable (Less irritable), Manic (Slightly calmer) Affect: Other (Slight increased range and intensity) Thought Process & Associations: Loose associations, Disorganized Thought Content: Bizarre thinking, Delusional Hallucination Type: None Delusion Type: Paranoid (Somewhat softer) Suicidal Ideation: No Suicidal Plan: No Suicidal Intention: No Homicidal Ideation: No Homicidal Plan: No Homicidal Intention: No Insight: Poor Judgment: Poor Assessment and Plan - Assessment (1) Bipolar affective disorder, currently manic, severe, with psychotic features Code(s): F31.2 - Bipolar disorder, current episode manic severe with psychotic features Status: Acute - Plan Plan: Patient remains calm and cooperative at this time alison he has diminished she is compliant medication. It appears as a placement arranged for Friday 06/01 for now continue treatment Justification for Continued Inpatient Stay: At this time patient would decompensate if not placed in an appropriate level of care Discharge Planning: Hospital placement on Friday 06/01 Request Healthcare Surrogate/Guardian Advocate?: Yes
[2018-05-30] MEDS: Folic Acid 1 MG Tablet PO SCH (08:12)
[2018-05-30] MEDS: Propranolol 40 MG Tablet PO SCH ×2 (08:12→20:47)
[2018-05-30] MEDS: Sodium Chloride 1 GM Tablet PO SCH ×2 (08:13→20:47)
[2018-05-30] MEDS: Divalproex 500 MG ER Tablet PO SCH ×2 (08:13→20:47)
[2018-05-30] MEDS: QUEtiapine 100 MG Tablet PO SCH ×3 (08:13→17:13)
[2018-05-30] MEDS: Lactobacillus Acidophilus/L. Spores Tablet PO SCH ×2 (08:13→20:46)
[2018-05-30] MEDS: amLODIPine 10 MG Tablet PO SCH (08:13)
[2018-05-30] MEDS: Lidocaine 5% Patch T-DERMAL SCH (08:14)
--- NOTE | 2018-05-30 12:44 | P.PNPSY ---
Subjective Chief Complaint: Patient manic psychotic delusional Remarks: Pt seen and discussed with staff. She was admitted due to alison with psychosis under a BA. Staff report that pt has improved and alison and psychosis have decreased significantly. Pt reports that her mood is improving and racing thoughts have decreased. She states that she is having a good day and has had no psychosis today. She has been compliant with care and slept well last night Mental Status Examination Appearance: Appropriate Consciousness: Alert Orientation: Person, Place, Situation Motor Activity: Normal gait Speech: Pressured (Slightly softer), Rapid (Slightly slower) Language: Perseveration (Improved) Fund of Knowledge: Adequate Attention and Concentration: Easily distracted Memory: Impaired Mood: Other (mildly elevated) Affect: Other (expansive, mild) Thought Process & Associations: Linear Thought Content: Appropriate Hallucination Type: None Delusion Type: None Suicidal Ideation: No Suicidal Plan: No Suicidal Intention: No Homicidal Ideation: No Homicidal Plan: No Homicidal Intention: No Insight: Fair Judgment: Impulsive Assessment and Plan - Assessment (1) Bipolar affective disorder, currently manic, severe, with psychotic features Code(s): F31.2 - Bipolar disorder, current episode manic severe with psychotic features Status: Acute - Plan Plan: Patient continues to improve. Continue current tx plan. Justification for Continued Inpatient Stay: risk of decompensation Request Healthcare Surrogate/Guardian Advocate?: Yes
--- NOTE | 2018-05-31 08:12 | P.PNPSY ---
Subjective Chief Complaint: Patient manic psychotic delusional Remarks: Reviewed electronic record and discussed with nursing staff. Rounded with SHERYL Huang. Patient is in the day room eating breakfast. Mood and concentration improved. She is asking appropriate questions regarding her discharge to a [facility] in [place]. She continues to be a little paranoid. She is less intrusive and focused on her discharge plan. Review of Systems All other systems reviewed negative except as stated in HPI Mental Status Examination Appearance: Appropriate Consciousness: Alert Orientation: Person, Place, Situation Motor Activity: Normal gait Speech: Pressured (Slightly softer), Rapid (Slightly slower) Language: Perseveration (Improved) Fund of Knowledge: Adequate Attention and Concentration: Easily distracted Memory: Impaired Mood: Other (mildly elevated) Affect: Other (expansive, mild) Thought Process & Associations: Linear Thought Content: Appropriate Hallucination Type: None Delusion Type: None Suicidal Ideation: No Suicidal Plan: No Suicidal Intention: No Homicidal Ideation: No Homicidal Plan: No Homicidal Intention: No Insight: Fair Judgment: Impulsive Assessment and Plan - Assessment (1) Bipolar affective disorder, current episode manic with psychotic symptoms Code(s): F31.2 - Bipolar disorder, current episode manic severe with psychotic features Status: Acute - Plan Plan: Patient continues to improve. Continue current tx plan. Justification for Continued Inpatient Stay: Moving patient to a less restrictive environment may result in her decompensation. Request Healthcare Surrogate/Guardian Advocate?: Yes
[2018-05-31] MEDS: Lactobacillus Acidophilus/L. Spores Tablet PO SCH ×2 (08:30→20:33)
[2018-05-31] MEDS: Folic Acid 1 MG Tablet PO SCH (08:30)
[2018-05-31] MEDS: Sodium Chloride 1 GM Tablet PO SCH ×2 (08:31→20:35)
[2018-05-31] MEDS: Divalproex 500 MG ER Tablet PO SCH ×2 (08:31→20:35)
[2018-05-31] MEDS: QUEtiapine 100 MG Tablet PO SCH ×3 (08:31→21:39)
[2018-05-31] MEDS: amLODIPine 10 MG Tablet PO SCH (08:31)
[2018-05-31] MEDS: Propranolol 40 MG Tablet PO SCH ×2 (08:31→20:35)
[2018-05-31] MEDS: Lidocaine 5% Patch T-DERMAL SCH (08:32)
[2018-06-01] MEDS: QUEtiapine 100 MG Tablet PO SCH ×2 (09:14→13:35)
[2018-06-01] MEDS: amLODIPine 10 MG Tablet PO SCH (09:14)
[2018-06-01] MEDS: Divalproex 500 MG ER Tablet PO SCH (09:15)
[2018-06-01] MEDS: Lactobacillus Acidophilus/L. Spores Tablet PO SCH (09:15)
[2018-06-01] MEDS: Folic Acid 1 MG Tablet PO SCH (09:15)
[2018-06-01] MEDS: Sodium Chloride 1 GM Tablet PO SCH (09:15)
[2018-06-01] MEDS: Propranolol 40 MG Tablet PO SCH (09:15)
[2018-06-01] MEDS: Lidocaine 5% Patch T-DERMAL SCH (09:16)
--- NOTE | 2018-06-01 09:28 | P.PNPSY ---
Subjective Chief Complaint: Patient manic psychotic delusional Remarks: Patient to be discharged today to [facility] patient denies suicidality or homicidality voices or visions, was compliant medication, excited about the placement. Addendum has already been dictated to the discharge summary I dictated on 05/27. Review of Systems All other systems reviewed negative except as stated in HPI Mental Status Examination Appearance: Appropriate Consciousness: Alert Orientation: Person, Place, Situation Motor Activity: Normal gait Speech: Pressured (Slightly softer), Rapid (Slightly slower) Language: Perseveration (Improved) Fund of Knowledge: Adequate Attention and Concentration: Easily distracted Memory: Impaired Mood: Other (mildly elevated) Affect: Other (expansive, mild) Thought Process & Associations: Linear Thought Content: Appropriate Hallucination Type: None Delusion Type: None Suicidal Ideation: No Suicidal Plan: No Suicidal Intention: No Homicidal Ideation: No Homicidal Plan: No Homicidal Intention: No Insight: Fair Judgment: Impulsive Assessment and Plan - Assessment (1) Bipolar affective disorder, currently manic, severe, with psychotic features Code(s): F31.2 - Bipolar disorder, current episode manic severe with psychotic features Status: Acute - Plan Plan: Patient continues overall calm and cooperative compliant medication excited about placement. Justification for Continued Inpatient Stay: Patient to be discharged today Discharge Planning: Patient to be discharged today Request Healthcare Surrogate/Guardian Advocate?: Yes
== END 2018-06-01 14:45 ==
LOC: NEDAMB 17:21 → NEDA 05-17 12:21 → H250 05-17 13:35 → H4EA 05-18 10:31 → H250 05-20 09:45
PROVIDERS: ADMIT Psychiatry & Neurology Psychiatry; ATTEND Psychiatry & Neurology Psychiatry